=== PATIENT | male | born 1995 | race African-American/Black ===

== ENCOUNTER 2024-04-18 16:48 | Emergency (ER) | payer MEDICARE, OTHER, SELFPAY ==
[2024-04-18 16:51] VITALS: BP 123/89
--- NOTE | 2024-04-18 17:34 | ED.GENMED ---
History of Present Illness
<Dominique Powell NP - Last Filed: 04/18/24 17:41>
General
Chief Complaint: Breathing Problem
Source: patient
Exam Limitations: none
Time Seen by Provider: 04/18/24 17:10
Nursing documentation reviewed up to this point in time: agreed with
History of Present Illness
History of Present Illness:
Patient to ED with complaint of chills, bodyaches, SOB since this AM. He was discharged from [facility] on 04/07 after 20month admission for colitis, crohn's, cholecystitis, feeding issues. reports feeling well until this AM. He has Bpap
at home and states he was coninuously hypoxic this AM. To ED accompanied by mother for eval
Past History
<Dominique Powell NP - Last Filed: 04/18/24 17:41>
Past History
ED Past Medical History: Asthma (esophageal atresia), Other (Esophageal atresia, tracheoesophageal fistula, tracheal cleft, GJ tube, aspiration pneumonia) and Other (Crohn's disease, colitis.)
ED Past Surgical History: Cholecystectomy and Other (JG tube, tracheoesophageal fistula repair, laryngeal cleft repair, prior tracheostomy.)
Patient has exhibited threatening behavior?: No
PSI?: No
Social History
Tobacco: Non-smoker
Alcohol: None
Drug: None
Personal: Single
Living: with family
Employment: Not employed
Family History
Family History: Other (Noncontributory)
Course
<Dominique Powell NP - Last Filed: 04/18/24 17:41>
Orders/Labs/Results
Orders:
Orders
04/18/24 17:13
CR Chest - 2 Views Urgent
Comment:
Reason For Exam: fever, sob
04/18/24 17:44
COVID-19 Antigen Urgent
Source: Nasal Swab
Complete Blood Count/With Diff Urgent
Comprehensive Metabolic Panel Urgent
Influenza A+B Rapid Molecular Urgent
DAVID Source: Nasal Swab
Specimen Description:
Abnormal Lab Results
04/18/24
17:44
MCHC 32.3 L g/dL
(33.0-37.0)
MPV 12.4 H fL
(7.4-10.4)
Absolute Neuts (auto) 7.5 H 10^3/uL
(1.4-6.5)
Neutrophils % 78.5 H %
(42.2-75.2)
Lymphocytes % 13.3 L %
(20.5-51.1)
Carbon Dioxide 31 H mmol/L
(22-30)
Creatinine 0.6 L mg/dL
(0.7-1.3)
AST 111 H U/L
(17-59)
ALT 123 H U/L
(0-50)
Alkaline Phosphatase 486 H U/L
(38-126)
Total Protein 8.3 H g/dl
(6.3-8.2)
04/18/24 17:44
04/18/24 17:44
Vital Signs
Initial and Last Documented VS:
Initial Vital Signs
Temp Pulse Resp BP Pulse Ox
98.9 F 118 18 123/89 99
04/18/24 16:51 04/18/24 16:51 04/18/24 16:51 04/18/24 16:51 04/18/24 16:51
Last Documented Vital Signs
Temp Pulse Resp BP Pulse Ox
98.9 F 118 18 113/72 98
04/18/24 16:51 04/18/24 16:51 04/18/24 16:51 04/18/24 19:00 04/18/24 19:00
Crystallt;Anuel Lovett, DO - Last Filed: 04/18/24 19:21>
Orders/Labs/Results
Orders:
Orders
04/18/24 17:13
CR Chest - 2 Views Urgent
Comment:
Reason For Exam: fever, sob
04/18/24 17:44
COVID-19 Antigen Urgent
Source: Nasal Swab
Complete Blood Count/With Diff Urgent
Comprehensive Metabolic Panel Urgent
Influenza A+B Rapid Molecular Urgent
DAVID Source: Nasal Swab
Specimen Description:
Abnormal Lab Results
04/18/24
17:44
MCHC 32.3 L g/dL
(33.0-37.0)
MPV 12.4 H fL
(7.4-10.4)
Absolute Neuts (auto) 7.5 H 10^3/uL
(1.4-6.5)
Neutrophils % 78.5 H %
(42.2-75.2)
Lymphocytes % 13.3 L %
(20.5-51.1)
Carbon Dioxide 31 H mmol/L
(22-30)
Creatinine 0.6 L mg/dL
(0.7-1.3)
AST 111 H U/L
(17-59)
ALT 123 H U/L
(0-50)
Alkaline Phosphatase 486 H U/L
(38-126)
Total Protein 8.3 H g/dl
(6.3-8.2)
04/18/24 17:44
04/18/24 17:44
Vital Signs
Initial and Last Documented VS:
Initial Vital Signs
Temp Pulse Resp BP Pulse Ox
98.9 F 118 18 123/89 99
04/18/24 16:51 04/18/24 16:51 04/18/24 16:51 04/18/24 16:51 04/18/24 16:51
Last Documented Vital Signs
Temp Pulse Resp BP Pulse Ox
98.9 F 118 18 113/72 98
04/18/24 16:51 04/18/24 16:51 04/18/24 16:51 04/18/24 19:00 04/18/24 19:00
ED Attending Note
<Dominique Powell FULL STACK SOFTWARE ENGINEER - Last Filed: 04/18/24 17:41>
-
Portions of this chart may have been created with voice recognition software.� Occasional wrong word or��sound alike� substitutions may have occurred due to the inherent limitations of voice recognition software.
<Anuel Lovett DO - Last Filed: 04/18/24 19:21>
ED Attending Note
Patient seen and examined by attending physician: Yes
I performed the substantive portion of visit, reviewed & personally made and approve the management plan that is documented in note by myself or VITA.: Yes
ED Attending Note:
Seen with FULL STACK SOFTWARE ENGINEER examined independently 28-year-old male very complex past medical history seen [facility] Kimberly presbyhas a device to keep his secretions out of his chest to keep her from aspirating, presents with URI symptoms, work
appears negative he is oxygen well on room air does have some rhonchi will have him use his nebulizer he has a follow-up scheduled with pulmonary next week
Discharge Plan
Departure
Prescriptions:
No Action
cetirizine [Children's Cetirizine] 5 MG/5 ML solution
10 mg feeding tube DAILY
VSL#3 1 EACH capsule
2 cap feeding tube DAILY
Saline Neb
1 unit inhalation BID
balsalazide [Colazal] 750 MG capsule
3 capsules feeding tube TID
Erythromycin
5 ml feeding tube TID
Patient Comments:
states concentration is 400mg per 5 ml
Qvar
1 puff inhalation PRN PRN (Reason: only when 'very sick')
Pepcid:
2.5 ml feeding tube BID
Rifaximin
1 tab feeding tube TID
Senna Syrup
5 ml feeding tube DAILY
albuterol sulfate 2.5 MG/3 ML solution for nebulization
2.5 mg inhalation R Q4HPRN PRN (Reason: sob/wheezing)
sucralfate 1 GRAM tablet
1 g feeding tube Q6H
baclofen 20 MG tablet
20 mg feeding tube BIDPRN PRN (Reason: muscle spasms)
cyanocobalamin (vitamin B-12) 1,000 MCG/ML solution
1,000 mcg SC MONTHLY
hyoscyamine sulfate [Levsin/SL] 0.125 MG tablet, sublingual
0.125 mg sublingual BIDPRN PRN (Reason: increased secreations)
pyridostigmine bromide [Mestinon] 60 MG/5 ML syrup
60 mg feeding tube Q8H
albuterol sulfate 1 PUFF HFA aerosol inhaler
2 puff inhalation R BID
hydromorphone 4 MG tablet
12 mg feeding tube HS
Patient Comments:
06/29/2021: last filled 06/17/2021, 105 tabs for 15 days from [facility]
hydromorphone 4 MG tablet
8 mg feeding tube BID@0800,1700
Patient Comments:
06/29/2021: last filled 06/17/2021, 105 tabs for 15 days from [facility]
cyclobenzaprine 5 MG tablet
5 - 10 mg feeding tube TIDPRN PRN (Reason: muscle spasms)
lansoprazole 30 MG tablet,disintegrat, delay rel
30 mg PO BID
alprazolam 0.5 MG tablet,disintegrating
1.5 mg PO TID
Patient Comments:
06/29/2021: last filled 06/07/2021, 90 tabs for 30 days from [facility][id number]
Advair HFA 1 PUFF HFA aerosol inhaler
2 puff inhalation R BID
gabapentin 250 MG/5 ML solution
750 mg feeding tube BID
Motegrity 2 MG tablet
2 mg feeding tube DAILY
Vitamin D3
4 ml feeding tube DAILY
Referrals:
Rudy Snyder MD [Family Provider] -
Interventions
Interventions:
*Risk Screen - Suicide Last Done: 04/18/24 16:51
*General Assessment Last Done: 04/18/24 16:51
*ED COVID-19 Vaccine History Last Done: 04/18/24 16:51
ED- Cardiac Assessment Last Done: 04/18/24 18:24
ED- Pulmonary Assessment Last Done: 04/18/24 18:24
Discharge Date and Time
Print Language: MOLDOVAN
[2024-04-18 17:54] LABS: % Basophils 0.2 % (0-2); % Eosinophils 1.9 % (0-6); % Immature Granulocytes 0.2 % (0-0.5); % Lymphocytes 13.3 % (20.5-51.1); % Monocytes 5.9 % (1.7-9.3); % Neutrophils 78.5 % (42.2-75.2); Absolute Eosinophils 0.2 10^3/uL (0-0.7); Absolute Lymphocytes 1.3 10^3/uL (1.2-3.4); Absolute Monocytes 0.6 10^3/uL (0.1-0.6); Absolute Neutrophils 7.5 10^3/uL (1.4-6.5); Hematocrit 44.3 % (39.0-52.0); Hemoglobin 14.3 g/dL (13.0-18.0); Mean Corp Hgb Conc. 32.3 g/dL (33.0-37.0); Mean Corpuscular Hgb 30.2 pg (27.0-31.0); Mean Corpuscular Volume 93.5 fL (80.0-94.0); Mean Platelet Volume 12.4 fL (7.4-10.4); Nucleated Red Blood Cells % 0 % (-); Platelet Count 173 10^3/uL (130-400); Red Blood Cell Count 4.74 10^6/uL (4.70-6.10); Red Cell Dist. Width 12.5 % (11.5-14.5); White Blood Cell Count 9.6 10^3/uL (4.8-10.8)
[2024-04-18 18:19] LABS: COVID-19 Antigen Negative (Negative)
[2024-04-18 18:22] VITALS: BP 130/81
[2024-04-18 18:32] LABS: ALT (SGPT) 123 U/L (0-50); AST (SGOT) 111 U/L (17-59); Albumin 4.6 g/dl (3.5-5.0); Alkaline Phosphatase 486 U/L (38-126); Blood Urea Nitrogen 11 mg/dl (9-20); Calcium 9.8 mg/dl (8.4-10.2); Carbon Dioxide 31 mmol/L (22-30); Chloride 99 mmol/L (98-107); Glucose 84 mg/dl (70-99); Potassium 4.4 mmol/L (3.5-5.1); Sodium 138 mmol/L (135-145); Total Bilirubin 1.2 mg/dl (0.2-1.3); Total Protein 8.3 g/dl (6.3-8.2); eGFR > 60.00
[2024-04-18 19:00] VITALS: BP 113/72
[2024-04-18 20:00] VITALS: BP 127/85
== END 2024-04-18 20:33 | disposition home or self-care (01) ==
LOC: EMR 16:48
PROVIDERS: Nurse Practitioner; EMERGENCY PHYSICIAN Emergency Medicine; FAMILY PHYSICIAN Family Medicine
DX: J45.909 Unspecified asthma, uncomplicated (principal); K50.90 Crohn's disease, unspecified, without complications; Z90.49 Acquired absence of other specified parts of digestive tract; Z93.1 Gastrostomy status
CPT/HCPCS: 99284; 71046; 80053; 85025; 87502; 87811

== ENCOUNTER 2024-06-11 21:00 | Emergency (ER) | payer MEDICARE, OTHER, SELFPAY ==
[2024-06-11 21:04] VITALS: BP 111/77
--- NOTE | 2024-06-11 22:57 | ED.GENMED ---
History of Present Illness
General
Chief Complaint: Urinary Symptoms
Source: patient and family
Exam Limitations: none
Time Seen by Provider: 06/11/24 22:37
Nursing documentation reviewed up to this point in time: agreed with
History of Present Illness
History of Present Illness:
Pleasant 28-year-old male that has a complex medical history. He feels that he is dehydrated he was sent in by his mobile therapist nurse practitioner for IV hydration. Patient spent approximately 2 years in multiple hospitals, including [facility],
[facility] and most recently being discharged from [facility] on April 07. Patient has colitis, Crohn's, cholecystitis. He has a G-tube and a J-tube. His G-tube is for decompression, and measures output. His J-tube is for
enteral feeding. Patient is on BiPAP. He also has a fistula in his right chest but it is not being used.
Vital signs are stable. Patient not hypoxic
Nursing note reviewed. I agree with nursing documentation up to this point in time.
Home Meds and allergies reviewed.
NUMBER AND COMPLEXITY OF PROBLEMS ADDRESSED AT THE ENCOUNTER
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
dehydration
� Acute Exacerbation and/or Progression of Chronic Illness: GERD and dehydration
� Differential Diagnosis includes: Dehydration
AMOUNT AND/OR COMPLEXITY OF DATA TO BE REVIEWED AND ANALYZED
I performed an independent evaluation of the following and my interpretation is:
EKG:
Pulse Ox: Not Hypoxic
Propeller Engineer: Sinus Rhythm
CT:
X-rays:
Ultrasound:
Laboratory Studies:
Other:
Review of other/old records:
Clinical information was obtained by an independent historian:
Prescriptions/Medications Considered but not given:
Further testing considered but not performed:
RISK OF COMPLICATIONS AND/OR MORBIDITY OR MORTALITY OF PATIENT MANAGEMENT
Social determinants of health affecting care: Good Social Support family at the bedside. Patient is very well versed in his care
Discussion with other providers:
Escalation of care including admission/observation vs risk of discharge considered: After being observed in the emergency department, patient is
CRITICAL CARE NOTE:
Total Time (exclusive of procedures):
Update:
Past History
Past History
ED Past Medical History: Asthma (esophageal atresia), Other (Esophageal atresia, tracheoesophageal fistula, tracheal cleft, GJ tube, aspiration pneumonia) and Other (Crohn's disease, colitis.)
ED Past Surgical History: Cholecystectomy and Other (JG tube, tracheoesophageal fistula repair, laryngeal cleft repair, prior tracheostomy.)
Patient has exhibited threatening behavior?: No
PSI?: No
Social History
Tobacco: Non-smoker
Alcohol: None
Drug: None
Personal: Single
Living: with family
Employment: Not employed
Family History
Family History: Other (Noncontributory)
Review of Systems
Review of Systems
Allergies reviewed?: Yes
Other source history: family
All Other Systems: ROS reviewed and negative except as documented in HPI and ROS
Constitutional: Reports no symptoms
EENT: Reports no symptoms
Respiratory: Reports no symptoms
Cardiac: Reports no symptoms
ABD/GI: Reports no symptoms
: Reports dark urine and other (Decreased urine output)
Musculoskeletal: Reports no symptoms
Skin: Reports no symptoms
Neurological: Reports no symptoms
Endocrine: Reports no symptoms
Hematologic/Lymphatic: Reports no symptoms
Psychiatric: Reports anxiety
Phy Exam
General Physical Exam
General Presentation: well appearing and no apparent distress
General Skin: warm and dry
General Habitus: normal
General Mental: alert
General Hydration: appears well hydrated
ENT Exam
ENT Exam: EOMI, pharynx normal, neck supple and normocephalic
Eye Exam
Eye Exam: PERRL, cornea clear and conjunctiva normal
Cardiovascular Exam
Cardiovascular Exam: regular rate/rhythm, no edema, no murmur and normal peripheral pulses
Pulmonary Exam
Pulmonary Exam: lungs clear, no respiratory distress, no rales, no crackles, no rhonchi, no stridor, no wheezing and no cough
Gastrointestinal Exam
Gastrointestinal Exam: normal bowel sounds, non tender, soft, no organomegaly, no pulsatile mass and non distended
External Findings: gastrostomy tube
Neurological Exam
Neurological Exam: alert, oriented x3, no motor deficits and speech normal
Musculoskeletal Exam
Musculoskeletal Exam: full ROM and no edema
Skin Exam
Skin Exam: normal color, warm/dry, no rash and no petechia
Psychiatric Exam
Psychiatric Exam: normal mood/affect
Course
Orders/Labs/Results
Orders:
Orders
06/11/24 22:58
0.9% Sodium Chloride 1000 ml [Nss] 1,000 ml IV BOLUS
06/11/24 23:40
Complete Blood Count/With Diff Urgent
Comprehensive Metabolic Panel Urgent
Lipase Urgent
Abnormal Lab Results
06/11/24
23:40
RBC 4.63 L 10^6/uL
(4.70-6.10)
MPV 12.8 H fL
(7.4-10.4)
Carbon Dioxide 31 H mmol/L
(22-30)
Creatinine 0.5 L mg/dL
(0.7-1.3)
AST 117 H U/L
(17-59)
ALT 90 H U/L
(0-50)
Alkaline Phosphatase 326 H U/L
(38-126)
06/11/24 23:40
06/11/24 23:40
Vital Signs
Initial and Last Documented VS:
Initial Vital Signs
Temp Pulse Resp BP Pulse Ox
98.3 F 104 18 111/77 97
06/11/24 21:04 06/11/24 21:04 06/11/24 21:04 06/11/24 21:04 06/11/24 21:04
Last Documented Vital Signs
Temp Pulse Resp BP Pulse Ox
98.3 F 110 24 138/94 98
06/11/24 21:04 06/12/24 01:05 06/12/24 01:05 06/12/24 01:05 06/12/24 03:57
*Critical Care Note
Total Time (30-74mins, 75-104mins- exclusive of procedures): Not Applicable
Update Note
Update Note:
Labs compared to previous, they are remarkably similar.
Patient resting comfortably. Receiving fluids. Family went home to get more TPN
Patient had 600 cc of urine. He is feeling better. He wishes to be discharged.
ED Attending Note
-
Portions of this chart may have been created with voice recognition software.� Occasional wrong word or��sound alike� substitutions may have occurred due to the inherent limitations of voice recognition software.
Discharge Plan
Departure
Patient Disposition: Home (Routine Discharge)
Date of Disposition: 06/12/24
Time of Disposition: 03:21
Patient with high blood pressure during this ER visit?: Yes
Condition: Good
Discharge Problem:
Acute dehydration
Instructions: Dehydration in adults - ED discharge instructions, BLOOD PRESSURE
Prescriptions:
No Action
cetirizine [Children's Cetirizine] 5 MG/5 ML solution
10 mg feeding tube DAILY
VSL#3 1 EACH capsule
2 cap feeding tube DAILY
Saline Neb
1 unit inhalation BID
balsalazide [Colazal] 750 MG capsule
3 capsules feeding tube TID
Erythromycin
5 ml feeding tube TID
Patient Comments:
states concentration is 400mg per 5 ml
Qvar
1 puff inhalation PRN PRN (Reason: only when 'very sick')
Pepcid:
2.5 ml feeding tube BID
Rifaximin
1 tab feeding tube TID
Senna Syrup
5 ml feeding tube DAILY
albuterol sulfate 2.5 MG/3 ML solution for nebulization
2.5 mg inhalation R Q4HPRN PRN (Reason: sob/wheezing)
sucralfate 1 GRAM tablet
1 g feeding tube Q6H
baclofen 20 MG tablet
20 mg feeding tube BIDPRN PRN (Reason: muscle spasms)
cyanocobalamin (vitamin B-12) 1,000 MCG/ML solution
1,000 mcg SC MONTHLY
hyoscyamine sulfate [Levsin/SL] 0.125 MG tablet, sublingual
0.125 mg sublingual BIDPRN PRN (Reason: increased secreations)
pyridostigmine bromide [Mestinon] 60 MG/5 ML syrup
60 mg feeding tube Q8H
albuterol sulfate 1 PUFF HFA aerosol inhaler
2 puff inhalation R BID
hydromorphone 4 MG tablet
12 mg feeding tube HS
Patient Comments:
06/29/2021: last filled 06/17/2021, 105 tabs for 15 days from [facility]
hydromorphone 4 MG tablet
8 mg feeding tube BID@0800,1700
Patient Comments:
06/29/2021: last filled 06/17/2021, 105 tabs for 15 days from [facility]
cyclobenzaprine 5 MG tablet
5 - 10 mg feeding tube TIDPRN PRN (Reason: muscle spasms)
lansoprazole 30 MG tablet,disintegrat, delay rel
30 mg PO BID
alprazolam 0.5 MG tablet,disintegrating
1.5 mg PO TID
Patient Comments:
06/29/2021: last filled 06/07/2021, 90 tabs for 30 days from [facility]#[id number]
Advair HFA 1 PUFF HFA aerosol inhaler
2 puff inhalation R BID
gabapentin 250 MG/5 ML solution
750 mg feeding tube BID
Motegrity 2 MG tablet
2 mg feeding tube DAILY
Vitamin D3
4 ml feeding tube DAILY
Referrals:
Rudy Snyder MD [Family Provider] -
Activity Restrictions/Additional Instructions:
It was a pleasure meeting you and taking part in your care. We hope for your continued healing and wellness.
Please read discharge instructions in their entirety. However, they are for general education and may not describe your exact diagnosis at discharge. Information on your ER visit and medical conditions were discussed with you along with appropriate
follow up information...
If indicated, please take your medications as instructed and indicated on discharge paperwork.
Please schedule a follow up appointment as directed. Call to schedule an appointment
Please return to the emergency department with ANY change in, persisting, or worsening of symptoms. If any of your symptoms do not improve, or persist, or become more severe within 6-12 hours, please return to the emergency department for further
care.
Please return to the emergency department if you develop a headache, neck pain/stiffness, fever greater than 100.4F, chest pain, shortness of breath, persistent nausea, vomiting, slurred speech, difficulty walking, numbness/tingling, weakness, signs
of infection or any other symptoms that are worrisome to you.
If you have any questions or concerns please do not hesitate to call the Hospital at or E-mail me directly at [email or web address]
Interventions
Interventions:
*Risk Screen - Suicide Last Done: 06/11/24 21:04
*General Assessment Last Done: 06/11/24 21:04
*Neglect/Abuse Screening Last Done: 06/11/24 21:04
*ED- Fall Risk Assessment Last Done: 06/12/24 03:57
*ED COVID-19 Vaccine History Last Done: 06/11/24 21:04
*Nursing Disposition Last Done: 06/12/24 03:57
ED-Male Genitourinary Assessment Last Done: 06/12/24 00:00
Discharge Date and Time
Discharge Date/Time: 06/12/24 03:58
Print Language: LUXEMBOURGISH
[2024-06-11] MEDS: NSS 1000 IV (23:32)
[2024-06-11 23:44] VITALS: BMI 27.7
[2024-06-11 23:51] LABS: % Basophils 0.3 % (0-2); % Eosinophils 1.6 % (0-6); % Immature Granulocytes 0.2 % (0-0.5); % Lymphocytes 28.8 % (20.5-51.1); % Monocytes 6.4 % (1.7-9.3); % Neutrophils 62.7 % (42.2-75.2); Absolute Eosinophils 0.1 10^3/uL (0-0.7); Absolute Lymphocytes 1.8 10^3/uL (1.2-3.4); Absolute Monocytes 0.4 10^3/uL (0.1-0.6); Absolute Neutrophils 3.9 10^3/uL (1.4-6.5); Hematocrit 41.7 % (39.0-52.0); Hemoglobin 13.8 g/dL (13.0-18.0); Mean Corp Hgb Conc. 33.1 g/dL (33.0-37.0); Mean Corpuscular Hgb 29.8 pg (27.0-31.0); Mean Corpuscular Volume 90.1 fL (80.0-94.0); Mean Platelet Volume 12.8 fL (7.4-10.4); Nucleated Red Blood Cells % 0 % (-); Platelet Count 156 10^3/uL (130-400); Red Blood Cell Count 4.63 10^6/uL (4.70-6.10); Red Cell Dist. Width 11.9 % (11.5-14.5); White Blood Cell Count 6.2 10^3/uL (4.8-10.8)
[2024-06-12 00:02] LABS: ALT (SGPT) 90 U/L (0-50); AST (SGOT) 117 U/L (17-59); Albumin 4.4 g/dl (3.5-5.0); Alkaline Phosphatase 326 U/L (38-126); Blood Urea Nitrogen 10 mg/dl (9-20); Calcium 9.9 mg/dl (8.4-10.2); Carbon Dioxide 31 mmol/L (22-30); Chloride 99 mmol/L (98-107); Estimated Creatinine Clearance > 125 ml/min; Glucose 96 mg/dl (70-99); Lipase 31 U/L (23-300); Sodium 138 mmol/L (135-145); Total Bilirubin 0.8 mg/dl (0.2-1.3); Total Protein 7.7 g/dl (6.3-8.2); eGFR > 60.00
[2024-06-12 01:05] VITALS: BP 138/94
== END 2024-06-12 03:58 | disposition home or self-care (01) ==
LOC: EMR 21:00
PROVIDERS: EMERGENCY PHYSICIAN Student in an Organized Health Care Education/Training Program; FAMILY PHYSICIAN Family Medicine
DX: E86.0 Dehydration (principal); Z93.1 Gastrostomy status
CPT/HCPCS: 99284; 96360; 96361 ×3; 80053; 83690; 85025

== ENCOUNTER 2024-06-17 15:51 | Emergency (ER) | payer MEDICARE, OTHER, SELFPAY ==
[2024-06-17 15:54] VITALS: BP 140/78
--- NOTE | 2024-06-17 17:47 | ED.GENMED ---
History of Present Illness
General
Chief Complaint: Dehydration Symptoms
Time Seen by Provider: 06/17/24 17:14
History of Present Illness
History of Present Illness:
28-year-old male with multiple medical comorbidities presents to the emergency department for evaluation of poor urine output and general fatigue. He is tube feed dependent and has severe esophageal reflux due to esophageal atresia status post spit
fistula creation. He informs me that due to medication supply issues he has not had his routine PPIs and thus his fistula has increased secretions and due to fluid losses he becomes increasingly hydrated. Was in this ER 5 days ago for the same
thing. Denies any pain at this time
Past History
Past History
ED Past Medical History: Asthma (esophageal atresia), Other (Esophageal atresia, tracheoesophageal fistula, tracheal cleft, GJ tube, aspiration pneumonia) and Other (Crohn's disease, colitis.)
ED Past Surgical History: Cholecystectomy and Other (JG tube, tracheoesophageal fistula repair, laryngeal cleft repair, prior tracheostomy.)
Patient has exhibited threatening behavior?: No
PSI?: No
Social History
Tobacco: Non-smoker
Alcohol: None
Drug: None
Personal: Single
Living: with family
Employment: Not employed
Family History
Family History: Other (Noncontributory)
Review of Systems
Review of Systems
Allergies reviewed?: Yes
All Other Systems: ROS reviewed and negative except as documented in HPI and ROS
Phy Exam
Physical Exam
Physical Exam:
GEN: Well appearing, NAD, WDWN
HEENT: Oral mucosa moist, no scleral icterus
Cardiac: Regular rate
Lung: No respiratory distress, no tachypnea
MSK: No gross deformity or injuries
Skin: Good color, no pallor or jaundice, no rashes. Ostomy in the right upper chest wall
Neuro: AO x3, moves all extremities freely
Psych: Calm, cooperative
Course
Orders/Labs/Results
Orders:
Orders
06/17/24 17:42
Lactated Ringers [Lr] 1,000 ml IV BOLUS
06/17/24 17:52
Basic Metabolic Panel Urgent
06/17/24 19:23
Lactated Ringers [Lr] 1,000 ml IV BOLUS
06/17/24 20:04
Albuterol Nebs [Ventolin Nebules] 2.5 mg INH R NOW STA
Ipratropium Nebs [Atrovent Nebules] 1 mg INH R NOW STA
Abnormal Lab Results
06/17/24
17:52
Creatinine 0.6 L mg/dL
(0.7-1.3)
06/17/24 17:52
Vital Signs
Initial and Last Documented VS:
Initial Vital Signs
Temp Pulse Resp BP Pulse Ox
98.2 F 98 16 140/78 97
06/17/24 15:54 06/17/24 15:54 06/17/24 15:54 06/17/24 15:54 06/17/24 15:54
Last Documented Vital Signs
Temp Pulse Resp BP Pulse Ox
98.2 F 100 15 119/78 98
06/17/24 15:54 06/17/24 21:00 06/17/24 21:00 06/17/24 21:00 06/17/24 21:00
MDM/Problems Addressed
MDM/Problems Addressed:
Given IV fluids, labs reassuring, will have PICC line placed as an outpatient upcoming next week
*Critical Care Note
Total Time (30-74mins, 75-104mins- exclusive of procedures): Not Applicable
ED Attending Note
-
Portions of this chart may have been created with voice recognition software.� Occasional wrong word or��sound alike� substitutions may have occurred due to the inherent limitations of voice recognition software.
Discharge Plan
Departure
Patient Disposition: Home (Routine Discharge)
Date of Disposition: 06/17/24
Time of Disposition: 20:26
Patient with high blood pressure during this ER visit?: No
Discharge Problem:
Acute dehydration
Instructions: Dehydration, Adult (DC)
Prescriptions:
No Action
cetirizine [Children's Cetirizine] 5 MG/5 ML solution
10 mg feeding tube DAILY
VSL#3 1 EACH capsule
2 cap feeding tube DAILY
Saline Neb
1 unit inhalation BID
balsalazide [Colazal] 750 MG capsule
3 capsules feeding tube TID
Erythromycin
5 ml feeding tube TID
Patient Comments:
states concentration is 400mg per 5 ml
Qvar
1 puff inhalation PRN PRN (Reason: only when 'very sick')
Pepcid:
2.5 ml feeding tube BID
Rifaximin
1 tab feeding tube TID
Senna Syrup
5 ml feeding tube DAILY
albuterol sulfate 2.5 MG/3 ML solution for nebulization
2.5 mg inhalation R Q4HPRN PRN (Reason: sob/wheezing)
sucralfate 1 GRAM tablet
1 g feeding tube Q6H
baclofen 20 MG tablet
20 mg feeding tube BIDPRN PRN (Reason: muscle spasms)
cyanocobalamin (vitamin B-12) 1,000 MCG/ML solution
1,000 mcg SC MONTHLY
hyoscyamine sulfate [Levsin/SL] 0.125 MG tablet, sublingual
0.125 mg sublingual BIDPRN PRN (Reason: increased secreations)
pyridostigmine bromide [Mestinon] 60 MG/5 ML syrup
60 mg feeding tube Q8H
albuterol sulfate 1 PUFF HFA aerosol inhaler
2 puff inhalation R BID
hydromorphone 4 MG tablet
12 mg feeding tube HS
Patient Comments:
06/29/2021: last filled 06/17/2021, 105 tabs for 15 days from [facility]
hydromorphone 4 MG tablet
8 mg feeding tube BID@0800,1700
Patient Comments:
06/29/2021: last filled 06/17/2021, 105 tabs for 15 days from [facility]
cyclobenzaprine 5 MG tablet
5 - 10 mg feeding tube TIDPRN PRN (Reason: muscle spasms)
lansoprazole 30 MG tablet,disintegrat, delay rel
30 mg PO BID
alprazolam 0.5 MG tablet,disintegrating
1.5 mg PO TID
Patient Comments:
06/29/2021: last filled 06/07/2021, 90 tabs for 30 days from [facility]#[id number]
Advair HFA 1 PUFF HFA aerosol inhaler
2 puff inhalation R BID
gabapentin 250 MG/5 ML solution
750 mg feeding tube BID
Motegrity 2 MG tablet
2 mg feeding tube DAILY
Vitamin D3
4 ml feeding tube DAILY
Referrals:
Rudy Snyder MD [Family Provider] -
Interventions
Interventions:
*Nursing Disposition Last Done: 06/17/24 21:01
ED- Cardiac Assessment Last Done: 06/17/24 19:58
ED- Neurological Assessment Last Done: 06/17/24 19:58
ED- Pulmonary Assessment Last Done: 06/17/24 19:58
Discharge Date and Time
Discharge Date/Time: 06/17/24 21:03
Print Language: NIGERIEN
[2024-06-17] MEDS: LR 1000 IV ×2 (17:49→19:28)
[2024-06-17 18:19] LABS: Blood Urea Nitrogen 12 mg/dl (9-20); Calcium 9.5 mg/dl (8.4-10.2); Carbon Dioxide 26 mmol/L (22-30); Chloride 103 mmol/L (98-107); Glucose 90 mg/dl (70-99); Potassium 4.5 mmol/L (3.5-5.1); Sodium 141 mmol/L (135-145); eGFR > 60.00
[2024-06-17 18:44] VITALS: BP 117/75
[2024-06-17] MEDS: ATROVENT NEBULES 1 MG INH (20:10)
[2024-06-17] MEDS: VENTOLIN NEBULES 2.5 MG INH (20:10)
[2024-06-17 21:00] VITALS: BP 119/78
== END 2024-06-17 21:03 | disposition home or self-care (01) ==
LOC: EMR 15:51
PROVIDERS: Physician Assistant; EMERGENCY PHYSICIAN Emergency Medicine; FAMILY PHYSICIAN Family Medicine
DX: E86.0 Dehydration (principal); J45.909 Unspecified asthma, uncomplicated; Q39.0 Atresia of esophagus without fistula; K50.90 Crohn's disease, unspecified, without complications; K21.9 Gastro-esophageal reflux disease without esophagitis; Z90.49 Acquired absence of other specified parts of digestive tract
CPT/HCPCS: 99284; 94640; 96360; 80048

== ENCOUNTER 2024-06-24 17:02 | Emergency (ER) | payer MEDICARE, OTHER, SELFPAY ==
[2024-06-24 17:06] VITALS: BP 120/88
[2024-06-24 17:40] LABS: % Basophils 0.4 % (0-2); % Immature Granulocytes 0.2 % (0-0.5); % Lymphocytes 29.8 % (20.5-51.1); % Monocytes 8.1 % (1.7-9.3); % Neutrophils 59.5 % (42.2-75.2); Absolute Eosinophils 0.1 10^3/uL (0-0.7); Absolute Lymphocytes 1.7 10^3/uL (1.2-3.4); Absolute Monocytes 0.5 10^3/uL (0.1-0.6); Absolute Neutrophils 3.3 10^3/uL (1.4-6.5); Hematocrit 40.2 % (39.0-52.0); Hemoglobin 13.2 g/dL (13.0-18.0); Mean Corp Hgb Conc. 32.8 g/dL (33.0-37.0); Mean Corpuscular Hgb 29.3 pg (27.0-31.0); Mean Corpuscular Volume 89.3 fL (80.0-94.0); Mean Platelet Volume 12.4 fL (7.4-10.4); Nucleated Red Blood Cells % 0 % (-); Platelet Count 155 10^3/uL (130-400); Red Cell Dist. Width 12.3 % (11.5-14.5); White Blood Cell Count 5.6 10^3/uL (4.8-10.8)
[2024-06-24 17:51] LABS: ALT (SGPT) 63 U/L (0-50); AST (SGOT) 64 U/L (17-59); Albumin 4.4 g/dl (3.5-5.0); Alkaline Phosphatase 363 U/L (38-126); Blood Urea Nitrogen 9 mg/dl (9-20); Calcium 9.2 mg/dl (8.4-10.2); Carbon Dioxide 26 mmol/L (22-30); Chloride 102 mmol/L (98-107); Glucose 94 mg/dl (70-99); Potassium 4.3 mmol/L (3.5-5.1); Sodium 139 mmol/L (135-145); Total Bilirubin 0.8 mg/dl (0.2-1.3); Total Protein 7.6 g/dl (6.3-8.2); eGFR > 60.00
--- NOTE | 2024-06-24 20:18 | ED.GENMED ---
History of Present Illness
General
Chief Complaint: Weakness
Time Seen by Provider: 06/24/24 20:11
History of Present Illness
History of Present Illness:
TIME OF INITIAL ENCOUNTER: 8:30 PM
HPI: The patient presents due to weakness. He was seen here 06/17/2024 with poor urine output and generalized fatigue. 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 He reportedly is supposed to have a PICC placed this
coming Saturday. Today he is concerned of decreased urine output, lightheadedness and generalized fatigue again. He feels that he needs more IV fluids.
EXAM:
GENERAL: Appears chronically ill
HEENT: Spit fistula bag noted in the right upper chest wall
CARDIOVASCULAR: No murmurs, borderline tachycardic heart rate, regular rhythm, No chest wall tenderness
PULMONARY: No respiratory distress, breath sounds coarse diffusely
ABDOMEN: Soft with no peritoneal signs, no tenderness, G and J-tube's noted
NEUROLOGIC: Excellent strength all extremities, no coordination deficits
PSYCHIATRIC: Appropriate mental status, normal insight and judgement
EXTREMITIES: Nontender, no edema, moves all extremities equally
SKIN: No rash, no lesions
NUMBER AND COMPLEXITY OF PROBLEMS ADDRESSED AT THE ENCOUNTER
� Chronic conditions affecting care: Tracheoesophageal fistula, has G and J-tube's
� Acute Exacerbation and/or Progression of Chronic Illness: This is an acute but recurring problem
� Differential Diagnosis includes: Dehydration, SUZANNE, hypovolemia, electrolyte abnormality
AMOUNT AND/OR COMPLEXITY OF DATA TO BE REVIEWED AND ANALYZED
� I performed an independent evaluation of and my interpretation is:
EKG:
CT:
X-rays:
Laboratory Studies: White count and hemoglobin are normal, chemistries unremarkable including a creatinine 0.5, transaminases are slightly lower than they were last week now in the 60s, alk phos 363 which has been elevated since
at least April
Other:
� Review of other/old records: The patient was seen here 06/17/24 as summarized above
� Clinical information was obtained by an independent historian: None needed speak to mother
� Prescriptions/Medications Considered but not given:
� Further testing considered but not performed:
RISK OF COMPLICATIONS AND/OR MORBIDITY OR MORTALITY OF PATIENT MANAGEMENT
� Social determinants of health affecting care: Lives at home
� Discussion with other providers:
� Escalation of care including admission/observation vs risk of discharge considered: I have ordered 2 L of IV fluids as patient feels dehydrated and does have complex GI history.
ANY OTHER UPDATES:
11:25 PM: I reassessed patient. He is just about on the first liter of fluid. He appears well-hydrated.
Throughout his stay in the emergency department, the patient did voice concern of the appearance of the fluid from the G port. He does have somewhat of a coffee-ground appearance in the tubing from the G-tube. However his blood pressure is normal,
hemoglobin is unchanged and BUN is normal. We do not have the Gastroccult cards and I did check with the Hemoccult card which was borderline positive. He apparently could not tolerate the PPI into the G-tube in the past and has been in contact
with [facility] regarding this issue in the past as well. He is to follow-up with [facility].
Past History
Past History
ED Past Medical History: Asthma (esophageal atresia), Other (Esophageal atresia, tracheoesophageal fistula, tracheal cleft, GJ tube, aspiration pneumonia) and Other (Crohn's disease, colitis.)
ED Past Surgical History: Cholecystectomy and Other (JG tube, tracheoesophageal fistula repair, laryngeal cleft repair, prior tracheostomy.)
Patient has exhibited threatening behavior?: No
PSI?: No
Social History
Tobacco: Non-smoker
Alcohol: None
Drug: None
Personal: Single
Living: with family
Employment: Not employed
Family History
Family History: Other (Noncontributory)
Phy Exam
Physical Exam
Physical Exam:
See HPI
Course
Orders/Labs/Results
Orders:
Orders
06/24/24 17:08
ECG [Electrocardiogram (*1)] Urgent
Reason for Study: Vertigo / Dizzy
06/24/24 17:09
EKG- Treatment ONCE
06/24/24 17:30
Complete Blood Count/With Diff Urgent
Comprehensive Metabolic Panel Urgent
06/24/24 20:26
0.9% Sodium Chloride 1000 ml [Nss] 1,000 ml IV BOLUS
0.9% Sodium Chloride 1000 ml [Nss] 1,000 ml IV BOLUS
Abnormal Lab Results
06/24/24
17:30
RBC 4.50 L 10^6/uL
(4.70-6.10)
MCHC 32.8 L g/dL
(33.0-37.0)
MPV 12.4 H fL
(7.4-10.4)
Creatinine 0.5 L mg/dL
(0.7-1.3)
AST 64 H U/L
(17-59)
ALT 63 H U/L
(0-50)
Alkaline Phosphatase 363 H U/L
(38-126)
06/24/24 17:30
06/24/24 17:30
Vital Signs
Initial and Last Documented VS:
Initial Vital Signs
Temp Pulse Resp BP Pulse Ox
36.7 C 104 20 120/88 95
06/24/24 17:06 06/24/24 17:06 06/24/24 17:06 06/24/24 17:06 06/24/24 17:06
Last Documented Vital Signs
Temp Pulse Resp BP Pulse Ox
36.7 C 104 20 136/89 95
06/24/24 17:06 06/24/24 17:06 06/24/24 17:06 06/25/24 00:00 06/25/24 00:45
*Critical Care Note
Total Time (30-74mins, 75-104mins- exclusive of procedures): Not Applicable
ED Attending Note
-
Portions of this chart may have been created with voice recognition software.� Occasional wrong word or��sound alike� substitutions may have occurred due to the inherent limitations of voice recognition software.
Discharge Plan
Departure
Patient Disposition: Home (Routine Discharge)
Date of Disposition: 06/24/24
Time of Disposition: 23:22
Patient with high blood pressure during this ER visit?: Yes
Discharge Problem:
Acute dehydration
Prescriptions:
No Action
cetirizine [Children's Cetirizine] 5 MG/5 ML solution
10 mg feeding tube DAILY
VSL#3 1 EACH capsule
2 cap feeding tube DAILY
Saline Neb
1 unit inhalation BID
balsalazide [Colazal] 750 MG capsule
3 capsules feeding tube TID
Erythromycin
5 ml feeding tube TID
Patient Comments:
states concentration is 400mg per 5 ml
Qvar
1 puff inhalation PRN PRN (Reason: only when 'very sick')
Pepcid:
2.5 ml feeding tube BID
Rifaximin
1 tab feeding tube TID
Senna Syrup
5 ml feeding tube DAILY
albuterol sulfate 2.5 MG/3 ML solution for nebulization
2.5 mg inhalation R Q4HPRN PRN (Reason: sob/wheezing)
sucralfate 1 GRAM tablet
1 g feeding tube Q6H
baclofen 20 MG tablet
20 mg feeding tube BIDPRN PRN (Reason: muscle spasms)
cyanocobalamin (vitamin B-12) 1,000 MCG/ML solution
1,000 mcg SC MONTHLY
hyoscyamine sulfate [Levsin/SL] 0.125 MG tablet, sublingual
0.125 mg sublingual BIDPRN PRN (Reason: increased secreations)
pyridostigmine bromide [Mestinon] 60 MG/5 ML syrup
60 mg feeding tube Q8H
albuterol sulfate 1 PUFF HFA aerosol inhaler
2 puff inhalation R BID
hydromorphone 4 MG tablet
12 mg feeding tube HS
Patient Comments:
06/29/2021: last filled 06/17/2021, 105 tabs for 15 days from [facility]
hydromorphone 4 MG tablet
8 mg feeding tube BID@0800,1700
Patient Comments:
06/29/2021: last filled 06/17/2021, 105 tabs for 15 days from [facility]
cyclobenzaprine 5 MG tablet
5 - 10 mg feeding tube TIDPRN PRN (Reason: muscle spasms)
lansoprazole 30 MG tablet,disintegrat, delay rel
30 mg PO BID
alprazolam 0.5 MG tablet,disintegrating
1.5 mg PO TID
Patient Comments:
06/29/2021: last filled 06/07/2021, 90 tabs for 30 days from [id number]
Advair HFA 1 PUFF HFA aerosol inhaler
2 puff inhalation R BID
gabapentin 250 MG/5 ML solution
750 mg feeding tube BID
Motegrity 2 MG tablet
2 mg feeding tube DAILY
Vitamin D3
4 ml feeding tube DAILY
Referrals:
Rudy Snyder MD [Family Provider] -
Activity Restrictions/Additional Instructions:
Basic blood work is unremarkable and shows no clear sign of dehydration. However we did give IV fluids here. Return here if worse or other concerns.
Interventions
Interventions:
*General Assessment Last Done: 06/24/24 17:06
*Neglect/Abuse Screening Last Done: 06/24/24 20:30
*ED- Fall Risk Assessment Last Done: 06/24/24 20:30
*ED COVID-19 Vaccine History Last Done: 06/24/24 20:30
ED- Cardiac Assessment Last Done: 06/24/24 20:30
ED- Neurological Assessment Last Done: 06/24/24 20:30
ED- Pulmonary Assessment Last Done: 06/24/24 20:30
Discharge Date and Time
Print Language: ALBANIAN
[2024-06-24 20:30] VITALS: BMI 29.1
[2024-06-24 20:33] VITALS: BP 124/83
[2024-06-24] MEDS: NSS 1000 IV (22:16)
[2024-06-24 23:21] VITALS: BP 122/97
[2024-06-25] VITALS: BP 136/89
[2024-06-25] MEDS: NSS 1000 IV (00:05)
[2024-06-25 01:00] VITALS: BP 129/94
== END 2024-06-25 01:29 | disposition home or self-care (01) ==
LOC: EMR 17:02
PROVIDERS: Emergency Medicine; EMERGENCY PHYSICIAN Emergency Medicine; FAMILY PHYSICIAN Family Medicine
DX: E86.0 Dehydration (principal); J45.909 Unspecified asthma, uncomplicated; Q39.0 Atresia of esophagus without fistula; K50.90 Crohn's disease, unspecified, without complications; Z90.49 Acquired absence of other specified parts of digestive tract
CPT/HCPCS: 99283; 96360 ×2; 96361; 80053; 85025; 93005

== ENCOUNTER 2024-07-01 13:46 | Emergency (ER) | payer MEDICARE, OTHER, SELFPAY ==
[2024-07-01 13:49] VITALS: BP 129/85
[2024-07-01 16:47] VITALS: BMI 29.1
--- NOTE | 2024-07-01 16:49 | ED.GENMED ---
History of Present Illness
General
Chief Complaint: Numbness
Source: patient
Exam Limitations: none
Time Seen by Provider: 07/01/24 16:16
Nursing documentation reviewed up to this point in time: agreed with
History of Present Illness
History of Present Illness:
Patient is a 28 year-old male presenting with worsening pain and swelling of right forearm near recent IV insertion site. Patient seen in the ED last week where an IV placement was attempted in his right forearm although the vein blew and was
unsuccessful. He had swelling and pain in the arm, which she was treating at home with Warm compresses and Tylenol. Symptoms were initially improving, although swelling seemed to worsen a few days ago and he thought he was noticing some redness in
the area. He is concerned for a possible infection around IV site. He also knows a tingling in his right forearm. He was having difficulty completing his activities at PT/OT due to the symptoms
Patient denies any fever, chills, chest pain, or shortness of breath.
Past History
Past History
ED Past Medical History: Asthma (esophageal atresia), Other (Esophageal atresia, tracheoesophageal fistula, tracheal cleft, GJ tube, aspiration pneumonia) and Other (Crohn's disease, colitis.)
ED Past Surgical History: Cholecystectomy and Other (JG tube, tracheoesophageal fistula repair, laryngeal cleft repair, prior tracheostomy.)
Patient has exhibited threatening behavior?: No
PSI?: No
Social History
Tobacco: Non-smoker
Alcohol: None
Drug: None
Personal: Single
Living: with family
Employment: Not employed
Family History
Family History: Other (Noncontributory)
Review of Systems
Review of Systems
Allergies reviewed?: Yes
All Other Systems: ROS reviewed and negative except as documented in HPI and ROS
Phy Exam
Physical Exam
Physical Exam:
Vitals: Mildly tachycardic, otherwise vital signs are stable. Afebrile
General: Patient is well appearing, no acute distress
Skin: Small firm subcutaneous nodule on right ventral forearm with overlying ecchymosis. No surrounding erythema, warmth, or red streaking
Head: Normocephalic, atraumatic
Throat: Protecting airway
Neck: Normal ROM, no cervical spine tenderness
Cardiac: Borderline tachycardic. spit fistula right chest wall
Pulm: No apparent respiratory distress
Abdomen: G and J tubes noted. Nondistended
Extremities:Firm nodule of right forearm as above. Full active ROM in right elbow and right wrist. Strength 5/5 in RUE. Sensation intact. Cap refill WNL.
Neuro: Grossly intact
Psychiatric: Normal affect.
Course
Orders/Labs/Results
Orders:
Orders
07/01/24 16:48
US Arms, Right [US Periph Venous UPPER Ext RT] Urgent
Comment:
Reason For Exam: Swelling/pain in right forearm
Vital Signs
Initial and Last Documented VS:
Initial Vital Signs
Temp Pulse Resp BP Pulse Ox
98.3 F 105 18 129/85 97
07/01/24 13:49 07/01/24 13:49 07/01/24 13:49 07/01/24 13:49 07/01/24 13:49
Last Documented Vital Signs
Temp Pulse Resp BP Pulse Ox
98.3 F 95 16 120/93 97
07/01/24 13:49 07/01/24 17:06 07/01/24 17:06 07/01/24 17:06 07/01/24 17:06
MDM/Problems Addressed
Differential Diagnosis Includes:
Not limited to: hematoma, infected hematoma, abscess, superficial thrombophlebitis, DVT, etc
MDM/Problems Addressed:
28-year-old male with healing hematoma of right forearm at sight of IV insertion site. No associated fever, chills. Vitals stable and he is afebrile. Physical exam as above. There is a small hematoma on the right ventral forearm with surrounding
ecchymosis. No surrounding erythema or warmth of RUE. No red streaking. No bony tenderness of RUE w/ full range of motion and right wrist and elbow. Capillary refill normal. An ultrasound was obtained, which shows no evidence of DVT of right upper
extremity however, notes a hematoma. Do not suspect infectious process however will send patient home with prescription for Keflex if symptoms persist/ worsen. He will discuss with primary care. Advised warm compress, elevation, Tylenol for pain.
Return precautions discussed. Patient and patients mom comfortable with plan.
Chronic conditions affecting care:
N/A
Acute Exacerbation and/or Progression of Chronic Illness:
N/A
*Radiology
Radiology exam reviewed: radiology read reviewed
*Pulse Oximetry
Patient hypoxic: no
*EKG
Interpreted by ED Provider?: NA
*Wall Insulation Sprayer Interpretation
Rate: Wall Insulation Sprayer- N/A
*Critical Care Note
Total Time (30-74mins, 75-104mins- exclusive of procedures): Not Applicable
Patient Management
Escalation/DeEscalation of care consider admission/obs:
Admit not indicated
ED Attending Note
-
Portions of this chart may have been created with voice recognition software.� Occasional wrong word or��sound alike� substitutions may have occurred due to the inherent limitations of voice recognition software.
Discharge Plan
Departure
Patient Disposition: Home (Routine Discharge)
Date of Disposition: 07/01/24
Time of Disposition: 19:17
Patient with high blood pressure during this ER visit?: Yes
Condition: Good
Covid-19: Not Applicable
Discharge Problem:
Hematoma of right forearm
Instructions: BLOOD PRESSURE, Hematoma
Prescriptions:
New
cephalexin 250 mg/5 mL suspension for reconstitution
500 mg feeding tube QID 5 Days Qty: 200 0RF
No Action
cetirizine [Children's Cetirizine] 5 MG/5 ML solution
10 mg feeding tube DAILY
VSL#3 1 EACH capsule
2 cap feeding tube DAILY
Saline Neb
1 unit inhalation BID
balsalazide [Colazal] 750 MG capsule
3 capsules feeding tube TID
Erythromycin
5 ml feeding tube TID
Patient Comments:
states concentration is 400mg per 5 ml
Qvar
1 puff inhalation PRN PRN (Reason: only when 'very sick')
Pepcid:
2.5 ml feeding tube BID
Rifaximin
1 tab feeding tube TID
Senna Syrup
5 ml feeding tube DAILY
albuterol sulfate 2.5 MG/3 ML solution for nebulization
2.5 mg inhalation R Q4HPRN PRN (Reason: sob/wheezing)
sucralfate 1 GRAM tablet
1 g feeding tube Q6H
baclofen 20 MG tablet
20 mg feeding tube BIDPRN PRN (Reason: muscle spasms)
cyanocobalamin (vitamin B-12) 1,000 MCG/ML solution
1,000 mcg SC MONTHLY
hyoscyamine sulfate [Levsin/SL] 0.125 MG tablet, sublingual
0.125 mg sublingual BIDPRN PRN (Reason: increased secreations)
pyridostigmine bromide [Mestinon] 60 MG/5 ML syrup
60 mg feeding tube Q8H
albuterol sulfate 1 PUFF HFA aerosol inhaler
2 puff inhalation R BID
hydromorphone 4 MG tablet
12 mg feeding tube HS
Patient Comments:
06/29/2021: last filled 06/17/2021, 105 tabs for 15 days from [facility]
hydromorphone 4 MG tablet
8 mg feeding tube BID@0800,1700
Patient Comments:
06/29/2021: last filled 06/17/2021, 105 tabs for 15 days from [facility]
cyclobenzaprine 5 MG tablet
5 - 10 mg feeding tube TIDPRN PRN (Reason: muscle spasms)
lansoprazole 30 MG tablet,disintegrat, delay rel
30 mg PO BID
alprazolam 0.5 MG tablet,disintegrating
1.5 mg PO TID
Patient Comments:
06/29/2021: last filled 06/07/2021, 90 tabs for 30 days from [id number]
Advair HFA 1 PUFF HFA aerosol inhaler
2 puff inhalation R BID
gabapentin 250 MG/5 ML solution
750 mg feeding tube BID
Motegrity 2 MG tablet
2 mg feeding tube DAILY
Vitamin D3
4 ml feeding tube DAILY
Referrals:
Rudy Snyder MD [Family Provider] - Follow up in 2-3 days
Activity Restrictions/Additional Instructions:
RETURN TO THE EMERGENCY DEPARTMENT WITH ANY FEVER, WORSENING PAIN/SWELLING AROUND HEMATOMA, SIGNIFICANT SURROUNDING REDNESS, RED STREAKING, OR ANY OTHER CONCERNS
- As discussed�your ultrasound performed in the emergency department showed no evidence of a blood clot. However�it did note a small hematoma.
- Continue to apply a warm compress and elevate your right arm as often as possible. You can take Tylenol as needed for pain.
- Monitor closely for signs of infection. I sent you home with a prescription for Keflex if signs of infection began. Please discuss with your primary care doctor
- Follow-up with your primary care for further evaluation/management to ensure that symptoms are improving
Monitor your symptoms closely and return to the emergency department with any acute worsening/new symptoms or any other concerns
Interventions
Interventions:
*Risk Screen - Suicide Last Done: 07/01/24 13:49
*General Assessment Last Done: 07/01/24 13:49
*Neglect/Abuse Screening Last Done: 07/01/24 13:49
*ED- Fall Risk Assessment Last Done: 07/01/24 16:48
*ED COVID-19 Vaccine History Last Done: 07/01/24 13:49
*Nursing Disposition Last Done: 07/01/24 19:48
ED- Neurological Assessment Last Done: 07/01/24 16:48
Discharge Date and Time
Discharge Date/Time: 07/01/24 19:49
Print Language: JAPANESE
[2024-07-01 17:06] VITALS: BP 120/93
== END 2024-07-01 19:49 | disposition home or self-care (01) ==
LOC: EMR 13:46
PROVIDERS: EMERGENCY PHYSICIAN Emergency Medicine; FAMILY PHYSICIAN Family Medicine
DX: S50.11XA Contusion of right forearm, initial encounter (principal); M79.631 Pain in right forearm; R22.31 Localized swelling, mass and lump, right upper limb; X58.XXXA Exposure to other specified factors, initial encounter; R20.0 Anesthesia of skin; J45.909 Unspecified asthma, uncomplicated; K50.90 Crohn's disease, unspecified, without complications; Z90.49 Acquired absence of other specified parts of digestive tract
CPT/HCPCS: 99284; 93971

== ENCOUNTER 2024-07-21 10:36 | Inpatient (IN) | payer MEDICARE, OTHER, SELFPAY ==
[2024-07-21] VITALS (9 sets, daily range): BP systolic 123–149; BP diastolic 88–107; BMI 29.0; BMI 25.5
[2024-07-21 02:35] LABS: Lactic Acid 0.9 mmol/L (0.7-2.0)
[2024-07-21 02:39] LABS: Hematocrit 44.3 % (39.0-52.0); Hemoglobin 14.8 g/dL (13.0-18.0); Mean Corp Hgb Conc. 33.4 g/dL (33.0-37.0); Mean Corpuscular Hgb 29.6 pg (27.0-31.0); Mean Corpuscular Volume 88.6 fL (80.0-94.0); Mean Platelet Volume 12.7 fL (7.4-10.4); Platelet Count 142 10^3/uL (130-400); White Blood Cell Count 11.9 10^3/uL (4.8-10.8)
[2024-07-21 02:45] LABS: ALT (SGPT) 124 U/L (0-50); AST (SGOT) 123 U/L (17-59); Albumin 5.1 g/dl (3.5-5.0); Alkaline Phosphatase 392 U/L (38-126); Blood Urea Nitrogen 9 mg/dl (9-20); Carbon Dioxide 27 mmol/L (22-30); Chloride 109 mmol/L (98-107); Glucose 123 mg/dl (70-99); Potassium 4.8 mmol/L (3.5-5.1); Sodium 143 mmol/L (135-145); Total Bilirubin 1.2 mg/dl (0.2-1.3); Total Protein 8.4 g/dl (6.3-8.2); eGFR > 60.00
[2024-07-21 03:21] LABS: Absolute Neutrophils -Man Diff 9.4 10^3/uL (1.4-6.5); Anisocytosis 1+; Band Neutrophils 0 % (0-3); Eosinophils 2 % (0-6); Lymphocytes 17 % (20-51); Monocytes 2 % (2-9); Normal RBC Morphology No; Platelets Checked Yes; Segmented Neutrophils 79 % (42-75); Total Cells Counted 100
[2024-07-21 04:25] LABS: Lipase 21 U/L (23-300)
[2024-07-21] MEDS: DUONEB 3 ML INH ×2 (05:51→20:03)
[2024-07-21 05:56] LABS: Urine Albumin Negative (Neg - Trace); Urine Bilirubin Negative (Negative); Urine Character Clear (Clear); Urine Color Yellow; Urine Glucose Negative (Negative); Urine Ketone Negative (Negative); Urine Leukocyte Negative (Negative); Urine Nitrite Negative (Negative); Urine Occult Blood Negative (Negative); Urine Urobilinogen Negative (Neg - 1+)
[2024-07-21] MEDS: DECADRON 10 MG IV (06:03)
[2024-07-21 06:11] LABS: COVID-19 Antigen Negative (Negative)
--- NOTE | 2024-07-21 06:17 | ED.GENMED ---
History of Present Illness
General
Chief Complaint: Fever
Source: patient
Exam Limitations: none
Time Seen by Provider: 07/21/24 05:19
Nursing documentation reviewed up to this point in time: agreed with
History of Present Illness
History of Present Illness:
28-year-old male with significant past medical history of Crohn's disease has an esophageal pouch as well as J-tube in place, history of asthma and COPD, presenting to the emergency department today with concerns of fevers chills diarrhea as well as
breathing issues recently diagnosed with pneumonia currently on amoxicillin and doxycycline. Also was in [place] 3 days ago and had low blood sugar also had a CT scan of the Jtube to ensure no complications due to patient having some pain there which
did not show any emergent findings
Past History
Past History
ED Past Medical History: Asthma (esophageal atresia), Other (Esophageal atresia, tracheoesophageal fistula, tracheal cleft, GJ tube, aspiration pneumonia) and Other (Crohn's disease, colitis.)
ED Past Surgical History: Cholecystectomy and Other (JG tube, tracheoesophageal fistula repair, laryngeal cleft repair, prior tracheostomy.)
Patient has exhibited threatening behavior?: No
PSI?: No
Social History
Tobacco: Non-smoker
Alcohol: None
Drug: None
Personal: Single
Living: with family
Employment: Not employed
Family History
Family History: Other (Noncontributory)
Review of Systems
Review of Systems
Allergies reviewed?: Yes
All Other Systems: ROS reviewed and negative except as documented in HPI and ROS
Phy Exam
Physical Exam
Physical Exam:
GENERAL: Alert , in no apparent distress
EYE: pupils equal and reactive
NECK: Supple, no significant adenopathy.
ENT: o/p clr, mmm.
CARDIAC: Regular rate and rhythm .
LUNGS: Diffuse inspiratory expiratory wheezing
ABDOMEN: Soft, without focal tenderness, no r/g, no cvat
NEUROLOGICAL: Alert and oriented, no focal neuro deficits
SKIN: Warm and dry, skin intact.
MUSCULOSKELETAL: No edema, well perfused.
PSYCH: Normal and appropriate interaction.
Sepsis
Sepsis Screening
Sepsis Assessment: Sepsis Ruled Out
Sepsis Screen
Sepsis Screen: Sepsis Ruled Out
Date: 07/23/24
Time: 06:18
Course
Orders/Labs/Results
Orders:
Orders
07/21/24 01:52
ECG [Electrocardiogram (*1)] Urgent
Reason for Study: Shortness of Breath
07/21/24 01:53
EKG- Treatment ONCE
07/21/24 02:10
Complete Blood Count/With Diff Urgent
Comprehensive Metabolic Panel Urgent
Lactic Acid Urgent
Lipase Urgent
Comment: ADDED
Manual Differential Urgent
Comment: ADD ON
07/21/24 03:24
Add On- LAB Urgent
Tests Added?: LIPASE
07/21/24 05:21
Urinalysis Reflex To Culture Urgent
Date Specimen was Collected: 07/21/24
Time Specimen was Collected: 05:18
07/21/24 05:29
Dexamethasone Pf [Decadron] 10 mg PO NOW STA
Ipratropium/Albuterol Sulfate [Duoneb] 3 ml INH R NOW ONE
Chest [CR Chest - 2 Views ] Urgent
Comment:
Reason For Exam: cough fever
07/21/24 05:37
COVID-19 Antigen Urgent
Source: Nasal Swab
Influenza A+B Rapid Molecular Urgent
DAVID Source: Nasal Swab
Specimen Description:
07/21/24 06:02
Dexamethasone Sod Phosphate [Decadron] 10 mg IV NOW STA
07/21/24 06:37
Azithromycin 500 mg/250 ml [Zithromax Infusion] 500 mg in 250 ml IV NOW
Piperacillin/Tazo 4.5 Gram [Zosyn] 4.5 gram in 100 ml IV NOW
07/21/24 06:38
CT Chest With Iv Contrast Urgent
Comment:
Reason For Exam: abnormal CXR
07/21/24 06:46
0.9% Sodium Chloride 500 ml [Nss] 500 ml IV BOLUS
07/21/24 09:38
Norovirus by PCR Routine
DAVID Source: Feces/Stool
Specimen Description:
Stool Culture Routine
DAVID Source: Feces/Stool
Specimen Description:
07/21/24 09:55
INFECTIOUS DISEASE CONSULT Routine
Consulting Provider: Ange Acevedo
Was physician already notified: Yes
07/21/24 Lunch
Tube Feeding
At Your Request: Non-Participating
Tube Feeding Product: Tube Feeding Per RD
Advance to goal rate (mL/hr): 140
Additional Tube Feeding Instructions: OK for patient to use Nutrient 1.5 and mixed with Pediolyte
Flush Continuous pump feedings with water (mL/hr): 25
07/21/24 10:02
Admit/Transfer Patient As Directed
Co-Sign Provider:
Level of Care: Inpatient admission
Assign to:: Medical/Surgical
Physician / Group: Rima/hospitalist
Diagnosis: fever/chills
Reason for Hospitalization: fever/chills
Expected length of stay greater than two midnights?: Yes
ELOS- Estimated Length of Stay in days: 3
I certify the patient meets the requirements for IP care: Yes
PRN Pain Medication Management As Directed
May give lesser potent ordered pain med per pt: Yes
preference::
Protocol:: Medication orders for pain may be administered in a
manner that supports deferring to patient preference
when the pt is:
- Requesting an ordered lesser potent pain medication.
Least to most potent pain medications are defined
as: acetaminophen < NSAID < tramadol < opioids
(morphine, oxycodone, hydromorphone).
- Requesting a lesser dose of the same medication IF
ORDERED.
- Requesting a less intrusive route of administration
if both routes are prescribed by the provider (PO <
IV).
07/21/24 10:05
Code Status As Directed
Resuscitation Status: Full Code
07/21/24 10:42
Blood Culture Q30M
DAVID Source: Blood/Venous
Specimen Description:
Comment: IF NOT OBTAINED IN ED
Melatonin 6 mg TUBE HSPRN PRN
Sennosides [Senna Syrup] 8.8 mg TUBE BIDPRN PRN
Tizanidine [Zanaflex] 2 mg TUBE Q8H PRN
07/21/24 10:42
Activity As Directed
Activity Level: As Tolerated
Intake/ Output As Directed
Frequency: Per unit guidelines
Vital Signs As Directed
Frequency: Per unit guidelines
DX Deep Vein Thrombosis Video Routine
07/21/24 11:12
Blood Culture Q30M
DAVID Source: Blood/Venous
Specimen Description:
Comment: IF NOT OBTAINED IN ED
07/21/24 11:27
Acetaminophen [Tylenol] 1,000 mg TUBE Q6HPRN PRN
07/21/24 11:30
Lactic Acid Q4H
Comment: repeat q4 hours x 4 or until less than 2 mmol/L
Procalcitonin Routine
If negative, will antibiotics be d/c'd or not started: Yes
Does the patient have renal or hepatic impairment?: No
Any recent (w/in 48 hrs) physiologic stress (CPR, rhabdo): No
Blood Culture Q30M
DAVID Source: Blood/Venous
Specimen Description:
Blood Culture Q30M
DAVID Source: Blood/Venous
Specimen Description:
07/21/24 12:00
Cyproheptadine HCl [Periactin] 4 mg TUBE QID@08,12,16,20
Dicyclomine [Bentyl 10Mg/5Ml Syrup] 10 mg TUBE Q6H
HYDROmorphone [Dilaudid] 8 mg TUBE Q4H
Ondansetron HCl [Zofran] 4 mg TUBE Q6H
prucalopride [Motegrity] 2 mg TUBE DAILY@1200
07/21/24 13:46
Urinalysis Reflex To Culture Urgent
Date Specimen was Collected: 07/21/24
Time Specimen was Collected: 13:45
07/21/24 14:00
Gabapentin [Neurontin] 900 mg TUBE DAILY@1400
Ipratropium Nebs [Atrovent Nebules] 0.5 mg INH R TID
Sodium Chloride 3% INH [Sodium Chloride 3% For Inhalation] 1 vial INH R TID
07/21/24 16:00
Alprazolam [Xanax] 1 mg TUBE TID
Cyclobenzaprine HCl [Flexeril] 15 mg TUBE TID
07/21/24 18:00
Enoxaparin Sodium [Lovenox] 40 mg SC QPM
07/21/24 20:00
Amoxicillin/Clavulanate Potass [Augmentin 200 mg/5 ml] 800 mg TUBE BID
Budesonide/Formoterol 160/4.5 [Symbicort 160/4.5 Mcg Inhaler] 2 puff INH R BID
Doxycycline [Vibramycin] 100 mg TUBE BID
Famotidine [Pepcid] 20 mg TUBE BID@0800,1999
Lansoprazole [Prevacid] 30 mg TUBE BID
07/21/24 22:00
Cetirizine HCl [Zyrtec] 10 mg TUBE HS
Gabapentin [Neurontin] 1,500 mg TUBE HS
07/22/24 07:36
Complete Blood Count/With Diff IN AM
Comprehensive Metabolic Panel IN AM
07/22/24 08:00
Gabapentin [Neurontin] 1,200 mg TUBE DAILY
naloxegol [Movantik] 6.25 mg PO DAILY
07/23/24 06:00
Complete Blood Count/With Diff IN AM
Comprehensive Metabolic Panel IN AM
07/24/24 06:00
Complete Blood Count/With Diff IN AM
Comprehensive Metabolic Panel IN AM
07/24/24 11:00
Scopolamine [Transderm-Scop] 1 patch TRANSDERM Q3D
07/29/24 08:00
Tobramycin Sulfate [Nebcin] 300 mg INH BID
Abnormal Lab Results
07/21/24
02:10
WBC 11.9 H 10^3/uL
(4.8-10.8)
MPV 12.7 H fL
(7.4-10.4)
Abs Neuts (Manual) 9.4 H 10^3/uL
(1.4-6.5)
Segmented Neutrophils 79 H %
(42-75)
Lymphocytes (Manual) 17 L %
(20-51)
Chloride 109 H mmol/L
(98-107)
Creatinine 0.5 L mg/dL
(0.7-1.3)
Glucose 123 H mg/dl
(70-99)
AST 123 H U/L
(17-59)
ALT 124 H U/L
(0-50)
Alkaline Phosphatase 392 H U/L
(38-126)
Total Protein 8.4 H g/dl
(6.3-8.2)
Albumin 5.1 H g/dl
(3.5-5.0)
Lipase 21 L U/L
(23-300)
07/21/24 02:10
07/21/24 02:10
Vital Signs
Initial and Last Documented VS:
Initial Vital Signs
Temp Pulse Resp BP Pulse Ox
99.2 F 138 24 138/88 96
07/21/24 01:47 07/21/24 01:47 07/21/24 01:47 07/21/24 01:47 07/21/24 01:47
Last Documented Vital Signs
Temp Pulse Resp BP Pulse Ox
97.6 F 89 18 111/71 100
07/23/24 03:05 07/23/24 03:05 07/23/24 03:05 07/23/24 03:05 07/23/24 03:05
MDM/Problems Addressed
MDM/Problems Addressed:
28-year-old male presenting to the emergency department mainly with respiratory symptoms fevers chills also has had some diarrhea has been on amoxicillin and doxycycline for presumed pneumonia over the past 5 days or so. Here patient does have
significant wheezing with started on dexamethasone as well as DuoNeb. Initially was tachycardic was given fluids with some and chest x-ray showing infiltrate to the right lower lobe and some additional abnormal findings. Was started on IV
antibiotics CT scan was ordered for further clarification otherwise will be admitted for further treatment and monitoring. Otherwise patient will be admitted for further treatment and monitoring.
*Critical Care Note
Total Time (30-74mins, 75-104mins- exclusive of procedures): Not Applicable
ED Attending Note
-
Portions of this chart may have been created with voice recognition software.� Occasional wrong word or��sound alike� substitutions may have occurred due to the inherent limitations of voice recognition software.
Discharge Plan
Departure
Patient Disposition: Admit
Date of Disposition: 07/21/24
Time of Disposition: 06:47
Admit to: Med/Surg
Admit to doctor: Vern
Presentation/result/management discussed w/ accepting MD/DO: Hospitalist
Patient with high blood pressure during this ER visit?: No
Condition: Good
Covid-19: Not Applicable
Discharge Problem:
Pneumonia
Interventions
Interventions:
*Risk Screen - Suicide Last Done: 07/21/24 01:47
*General Assessment Last Done: 07/21/24 05:19
*Neglect/Abuse Screening Last Done: 07/21/24 01:47
*ED- Fall Risk Assessment Last Done: 07/21/24 15:44
*ED COVID-19 Vaccine History Last Done: 07/21/24 05:19
*Nursing Disposition Last Done: 07/21/24 15:44
ED- Neurological Assessment Last Done: 07/21/24 05:19
ED-Skin Assessment Last Done: 07/21/24 05:19
Discharge Date and Time
Discharge Date/Time: 07/21/24 15:44
[2024-07-21] MEDS: NSS 500 IV (08:00)
[2024-07-21] MEDS: ZOSYN 100 IV (08:00)
[2024-07-21] MEDS: ZITHROMAX INFUSION 250 IV (09:14)
--- NOTE | 2024-07-21 09:31 | HPS.HSE ---
Family Physician
-
Family Physician: Rudy Snyder
Chief Complaint
-
fevers and chills that started the day [facility].
History of Present Illness
HPI: 28-year-old male PMH of Crohn's disease, s/p TE fistula repair, s/p trach and removal, s/p esophagostomy, s/p J-tube in place, history of asthma/COPD, p/w fevers and chills that started the day [facility].
He was recently diagnosed with pneumonia and was started with amoxicillin and doxycycline, which he continues to take. He was also given a short steroid course which he has completed.
He states that he developed watery diarrhea since taking amoxicillin and doxycycline; stool now slightly more formed.
He was at [place] 3 days [facility] for pain around his J tube; per pt, CT AP obtained at that time showed no complication of his J tube.
Pt states that he is strict NPO, and he gets his nutrition through tube feed.
Medical History
Past Medical History
Past Medical History: Reports Other
Additional Past Medical History:
Crohn's disease,
s/p TE fistula repair,
s/p trach and removal,
s/p esophagostomy,
s/p J-tube in place,
history of asthma/COPD
Past Surgical History: Reports Other
Additional Past Surgical History:
see PMH
Social History
Tobacco: Non-smoker
Living: With Family
Family History
Family History: Other
Allergies / Home Medications
Allergies reflects when Allergies were last updated in [facility].
Home Medications with original date entered in [facility]
Allergy/Medication List:
Allergies
Allergy/AdvReac Type Severity Reaction Status Date / Time
lactose [Lactose] Allergy Severe Hives Verified 07/21/24 01:52
sodium bicarbonate Allergy Severe Hives Verified 07/21/24 01:52
[Sodium Bicarbonate]
cefdinir Allergy Rash Verified 07/21/24 01:52
levofloxacin [From Levaquin] Allergy joint pain Verified 07/21/24 01:52
NSAIDS (Non-Steroidal Allergy Unknown Verified 07/21/24 01:52
Anti-Inflamma
omeprazole Allergy Unknown Verified 07/21/24 01:52
theophylline Allergy Unknown Verified 07/21/24 01:52
vancomycin Allergy Unknown Verified 07/21/24 01:52
Home Medications
cetirizine 1 mg/mL oral solution (Children's Cetirizine) 10 mg feeding tube HS Allergies 02/27/10
famotidine 40 mg/5 mL (8 mg/mL) oral suspension 20 mg feeding tube BID@0800,2000 ##0 03/13/20
sennosides 8.8 mg/5 mL oral syrup (senna) 8.8 mg feeding tube BIDPRN PRN constipation ##0 03/13/20
cholecalciferol (vitamin D3) 10 mcg/mL (400 unit/mL) oral drops (D-Vi-Samanta) 10 mcg feeding tube DAILY Supplement ##0 06/29/21
gabapentin 250 mg/5 mL (5 mL) oral solution 1,200 mg feeding tube DAILY 06/29/21
lansoprazole 30 mg delayed release,disintegrating tablet (Prevacid SoluTab) 30 mg feeding tube BID Gastrointestinal issue 06/29/21
prucalopride 2 mg tablet (Motegrity) 2 mg feeding tube DAILY@1200 Constipation 06/29/21
Ursodiol 50mg/Ml 6 ml feeding tube BID 07/21/24
acetaminophen 160 mg/5 mL (5 mL) oral solution 1,000 mg feeding tube BIDPRN PRN mild pain 07/21/24
alprazolam 1 mg disintegrating tablet 1 mg feeding tube TID 07/21/24
amoxicillin 400 mg-potassium clavulanate 57 mg/5 mL oral suspension 10 ml feeding tube BID 07/21/24
aprepitant 40 mg capsule 40 mg feeding tube DAILY 07/21/24
budesonide-formoterol HFA 160 mcg-4.5 mcg/actuation aerosol inhaler (Symbicort) 2 inh inhalation R BID 07/21/24
cyclobenzaprine 10 mg tablet 15 mg feeding tube TID 07/21/24
cyproheptadine 2 mg/5 mL oral syrup 4 mg feeding tube QID@08,12,16,20 07/21/24
dicyclomine 10 mg/5 mL oral solution 10 mg feeding tube Q6H 07/21/24
doxycycline hyclate 100 mg capsule 100 mg feeding tube BID 07/21/24
gabapentin 250 mg/5 mL (5 mL) oral solution 1,500 mg feeding tube HS 07/21/24
gabapentin 250 mg/5 mL oral solution 900 mg feeding tube DAILY@1400 07/21/24
hydromorphone 1 mg/mL oral liquid 8 mg feeding tube Q4H 07/21/24
ipratropium bromide 0.02 % solution for inhalation 2.5 ml inhalation R TID 07/21/24
melatonin 3 mg tablet 6 mg feeding tube HSPRN PRN sleep 07/21/24
metoclopramide HCl 5 mg/5 mL oral solution 5 mg feeding tube TIDPRN PRN spasms 07/21/24
naloxegol 12.5 mg tablet (Movantik) 6.25 mg PO DAILY feeding tube 07/21/24
ondansetron HCl 4 mg/5 mL oral solution 4 mg feeding tube Q6H 07/21/24
scopolamine base 1 mg over 3 days transdermal patch 1 patch transdermal Q3D 07/21/24
sodium chloride 7 % for nebulization 1 inh inhalation R TID 07/21/24
tizanidine 2 mg tablet 2 mg feeding tube Q8H PRN muscle spasms 07/21/24
tobramycin 300 mg/5 mL in 0.225 % sodium chloride for nebulization 5 ml inhalation DIRECTED 07/21/24
ustekinumab 90 mg/mL subcutaneous syringe (Stelara) 90 mg SC MONTHLY 07/21/24
Review of Systems
-
Constitutional: Reports Fever and Chills
Respiratory: Reports See HPI and Cough (chronic cough for years)
Abdomen/GI: Reports Diarrhea; Denies Abdominal Pain
Physical Exam
Vital Signs
Vital Signs
Temp Pulse Resp BP Pulse Ox
37.3 C 116 18 140/107 97
07/21/24 01:47 07/21/24 05:26 07/21/24 05:26 07/21/24 09:19 07/21/24 05:26
Physical Exam
General: Well Developed, Well Nourished, Comfortable, Conversant and Appears Chronically Ill
HEENT: NormoCephalic and Other (esophagostomy)
Respiratory: Clear, Non Labored Respirations and Other (coarse breath sound); No Accessory Resp Muscle Use
Cardiac: S1/S2 and Regular Rhythm; No Murmur or Rub
GI: Soft, Non Tender, Non Distended, Normal Bowel Sounds and Other (J tube); No Organomegaly
Rectal: Deferred by Provider
Musculoskeletal: No Clubbing, No Cyanosis and No Edema
Skin: No Rash
Neuro: Awake and Alert
Psych: Calm and Intact Judgment/Insight
Laboratory Results
-
07/21/24 02:10
07/21/24 02:10
Laboratory Results
Lactic Acid 0.9 mmol/L (0.7-2.0) 07/21/24 02:10
Total Bilirubin 1.2 mg/dl (0.2-1.3) 07/21/24 02:10
AST 123 U/L (17-59) H 07/21/24 02:10
ALT 124 U/L (0-50) H 07/21/24 02:10
Alkaline Phosphatase 392 U/L (38-126) H 07/21/24 02:10
Lipase 21 U/L (23-300) L 07/21/24 02:10
Data Reviewed
-
CT Scan: Report Reviewed by me
Lab Data: Labs Reviewed by me
Impression/Plan
-
HPI: 28-year-old male PMH of Crohn's disease, s/p TE fistula repair, s/p trach and removal, s/p esophagostomy, s/p J-tube in place, history of asthma/COPD, p/w fevers and chills that started the day [facility].
He was recently diagnosed with pneumonia and was started with amoxicillin and doxycycline, which he continues to take. He was also given a short steroid course which he has completed.
He states that he developed watery diarrhea since taking amoxicillin and doxycycline; stool now slightly more formed.
He was at [place] 3 days [facility] for pain around his J tube; per pt, CT AP obtained at that time showed no complication of his J tube.
Pt states that he is strict NPO, and he gets his nutrition through tube feed.
A/P:
# Possible sepsis POA, unclear source
COVID/Flu negative
CT chest: No significant acute abnormality identified in the chest, Stable chronic changes from prior tracheoesophageal fistula repair.
Check blood cultures x2
Check Procal
Check stool studies if gopal to collect (on Abx [facility])
ID CS
Cont current amoxicillin and doxycycline for now until further directed by ID
# Elevated LFT, possibly reactive
Cont to trend
Other medical conditions:
# s/p TE fistula repair
# s/p trach and removal
# s/p esophagostomy
# s/p J-tube in place
# Crohn's disease
# history of asthma and COPD,
DVT ppx: Lovenox SQ
FC
total time 75 min
[2024-07-21 12:20] LABS: Lactic Acid 1.5 mmol/L (0.7-2.0)
[2024-07-21] MEDS: DILAUDID 8 MG TUBE ×4 (12:22→23:59)
[2024-07-21] MEDS: BENTYL 10 MG TUBE ×3 (12:22→23:22)
[2024-07-21] MEDS: ZOFRAN 4 MG TUBE ×3 (12:22→23:22)
[2024-07-21 12:31] LABS: Procalcitonin 0.77 ng/ml (0.0-0.25)
[2024-07-21] MEDS: ATROVENT NEBULES 0.5 MG INH (13:20)
[2024-07-21] MEDS: NEURONTIN 900 MG TUBE (14:08)
[2024-07-21] MEDS: PERIACTIN 4 MG TUBE ×3 (14:08→21:33)
[2024-07-21 14:13] LABS: Urine Albumin Negative (Neg - Trace); Urine Bilirubin Negative (Negative); Urine Character Clear (Clear); Urine Color Yellow; Urine Glucose Negative (Negative); Urine Ketone Negative (Negative); Urine Leukocyte Negative (Negative); Urine Nitrite Negative (Negative); Urine Occult Blood Negative (Negative); Urine Urobilinogen Negative (Neg - 1+)
[2024-07-21] MEDS: DUONEB INH (15:03)
[2024-07-21] MEDS: SODIUM CHLORIDE 3% FOR INHALATION INH (15:03)
[2024-07-21] MEDS: XANAX 1 MG TUBE ×2 (17:03→23:22)
[2024-07-21] MEDS: FLEXERIL 15 MG TUBE ×2 (17:03→23:21)
--- NOTE | 2024-07-21 17:07 | CON.ID ---
Consultation
-
Date/Time Consultation Requested: July 21, 2024 0955
Date/Time Consultation Performed: July 21, 2024 1710
Requesting Provider: Dr. Tarsha Abarca
Performing Provider: Dr. Ange Acevedo
Reason for Consultation: History of esophageal pouch, elev procal, CT chest without acute change
Chief Complaint / Past History
Chief Complaint
Fever and sweats
History of Present Illness
History obtained from the patient as well as from his mother at bedside. He presented to the hospital due to fever, malaise, sweats, wheezing yesterday. 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
tobramycin inhalation 2 weeks on/2 weeks off since 2021. He reports in early July he developed shortness of breath, and chest congestion and wheezing. He saw his rn clinical review July 10 and chest x-ray reportedly showed right lung opacity. He was
placed on Augmentin initially for 7 days. However he did not improve and therefore his rn clinical review extended the course for another 7 days. He was still not improving while on Augmentin, and his PCP added doxycycline 1 week ago. He also received
a brief course of steroid taper. His wheezing improved. However he still has congestion. He finished the tobramycin inhalation on July 14. Patient's developed diarrhea while on Augmentin. On Saturday he was seen at [facility] and stool was negative for
C. difficile. Also he was seen for leaking J-tube. CAT scan of the abdomen showed tube in the correct site. Over the weekend his mom heard wheezing again. Yesterday he developed the fever up to 101.5 with associated sweats and chills. Continues
to have respiratory symptoms. He came to the ED early this morning. Wheezing was heard and he was given 1 dose of dexamethasone. He also received a dose of Zosyn. Chest x-ray no acute change. Chest CT also unremarkable without any acute
process. In the meantime the wheezing has improved after dexamethasone. He denies ill contacts. No recent travel. Crohn's is well controlled on sterlara.
Past History
Additional Past Medical History:
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
tracheoesophageal fistula repair, age 3
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
G/J-tube placement
Laryngeal cleft repair 2015
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
Vocal cord paralysis
Crohn's on Stelara
GERD
Asthma
Chronic abdominal pain
Chronic back pain
Prior tracheostomy
Pelvic fracture s/p repair
Bilateral hip fracture s/p repair
Left rotator cuff repair
Allergy History:
lactose [Lactose] Allergy (Severe, Verified 07/21/24 01:52)
Hives
sodium bicarbonate [Sodium Bicarbonate] Allergy (Severe, Verified 07/21/24 01:52)
Hives
cefdinir Allergy (Verified 07/21/24 01:52)
Rash
levofloxacin [From Levaquin] Allergy (Verified 07/21/24 01:52)
joint pain
NSAIDS (Non-Steroidal Anti-Inflamma Allergy (Verified 07/21/24 01:52)
Unknown
omeprazole Allergy (Verified 07/21/24 01:52)
Unknown
theophylline Allergy (Verified 07/21/24 01:52)
Unknown
vancomycin Allergy (Verified 07/21/24 01:52)
Unknown
Medications Reviewed: Yes
Current Antibiotics:
Augmentin
Doxycycline
Social History
Tobacco: Non-Smoker
Alcohol: None
Drug: None
Personal: Single
Living: With Family
Family History
Family History: Not Pertinent
Review of Systems
Review of Systems
General: Fever and Chills
HEENT: Negative Sinus Problems or Headache
Respiratory: Dyspnea and Cough
Gasteroenterology: Diarrhea; Negative Nausea or Vomiting
Genital / Urological: Negative Dysuria or Flank Pain
Endocrine: Weakness
Neurological: Negative Dizziness
All systems: All other systems were reviewed and were negative
Vital Signs
Temp Pulse Resp BP Pulse Ox
98.7 F 129 14 142/98 97
07/21/24 15:50 07/21/24 15:50 07/21/24 15:50 07/21/24 15:50 07/21/24 15:50
Physical Exam
Physical Exam
Constitutional: Comfortable and Non-toxic
Head: Other (No frontal or max or sinus tenderness)
Eyes: No Conjunctival Hemorrhage and Sclera Anicteric
Cardiovascular: Regular Rate and S1/S2
Pulmonary: Coarse (throughout); Negative Wheezes or Rales
Gastrointestinal: Soft, Non Tender, Non Distended and Other (J-tube dressing with scant bile, tube site without drainage or erythema; G-tube site dressing dry)
Genito-Urinary: Negative CVA Tenderness
Extremities: Negative Edema
Neurological: AO x 3
Lab / Diagnostic Study Results
07/21/24 02:10
07/21/24 02:10
Total Counted 100 07/21/24 02:10
Abs Neuts (Manual) 9.4 10^3/uL (1.4-6.5) H 07/21/24 02:10
Segmented Neutrophils 79 % (42-75) H 07/21/24 02:10
Band Neutrophils 0 % (0-3) 07/21/24 02:10
Lymphocytes (Manual) 17 % (20-51) L 07/21/24 02:10
Eosinophils (Manual) 2 % (0-6) 07/21/24 02:10
Lactic Acid 1.5 mmol/L (0.7-2.0) 07/21/24 11:30
Procalcitonin 0.77 ng/ml (0.0-0.25) H 07/21/24 11:30
Microbiology Results
Micro:
07/21/24 11:30 Blood Culture - Pending
Blood/Venous
07/21/24 11:30 Blood Culture - Pending
Blood/Venous
07/21/24 05:37 Influenza Types A & B (WERNER) - Final
Nasal Swab Negative for Influenza A & B, NAAT
Negative results must be combined with clinical observations
and patient history.
Nucleic Acid Amplification test (NAAT)performed on the
[employer] platform.
07/21/[address]: No significant acute abnormality identified in the chest, as described above. Stable chronic changes from prior tracheoesophageal fistula repair.
07/21/24 CXR: no acute process
Assessment / Plan
# Fever at home
# SOB/chest congestion
# Asthma exacerbation
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
Esophagectomy, G/J tube August 2022
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
# Allergy to IV Vancomycin, FQ, cefdinir
- blood cx's pending
- UA neg
- Outpt C. diff negative
- CT chest and CXR no acute process
- Has been on outpt Augmentin and doxycycline without clinical response
- Probable tracheitis with Pseudomonas
- Pseudomonas may have developed drug resistance from prior multiple abx's
- Trial of meropenem 500mg IV q6h.
- DC augmentin and doxycycline.
- Follow temps, WBC
# Conditions MICRO PALEONTOLOGIST
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
tracheoesophageal fistula repair, age 3
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
G/J-tube placement
Laryngeal cleft repair 2015
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
Vocal cord paralysis
Crohn's on Stelara
GERD
Asthma
Chronic abdominal pain
Chronic back pain
Prior tracheostomy
Pelvic fracture s/p repair
Bilateral hip fracture s/p repair
Left rotator cuff repair
--- NOTE | 2024-07-21 17:43 | PTCARENOTE ---
Addendum entered by Rosaline Lei RN 07/21/24 19:41:
pt also had c.diff screening over the weekend down at [facility] that resulted negative on 07/18. MD and infectious disease made aware of this result. pt esophagostomy changed by patient and mother at bedside with nurses assessing for education. site with
increased localized erythema per patient and mother, wound/ostomy consult placed. patient specific medications sent down to pharmacy by this RN. orders being adjusted at this time. overnight House provider for 2N placing prn robitussin order. all
medications going through patient J tube. scopolamine patch behind L ear from home, placed 07/20.
Original Note:
pt uses neutra feeds 1.5 mixed with Pedialyte. consult for impregnation operator placed early 07/21. pt received from ED at 1600. unable to get appropriate orders for tube feeds. pt connected to his own tube feeds until properly seen by impregnation operator tomorrow. floor
performance manager made aware of delay. mother and pt made aware. pt with esophagostomy bag, gtube an j tube. tube feeds going at 60 with 40 flush. pt strict npo. distilled water at bedside. pt uses walker at baseline.
[2024-07-21] MEDS: LOVENOX SC ×2 (18:13→18:45)
[2024-07-21] MEDS: MERREM 500 MG IV ×2 (18:42→23:59)
[2024-07-21] MEDS: STERILE WATER FOR INJECTION 10 ML IV (18:42)
--- NOTE | 2024-07-21 19:58 | VATNOTE ---
pt stated right forearm IV was put in by Ultrasound in ER; catheter out 3 cm; informed pt. next might be a midline. Pt has had picc in past for TPN up until Mar 2024. VAT to follow.
[2024-07-21] MEDS: SYMBICORT 160/4.5 MCG INHALER 2 PUFF INH (20:03)
[2024-07-21] MEDS: SODIUM CHLORIDE 3% FOR INHALATION 1 VIAL INH (20:03)
[2024-07-21] MEDS: PREVACID 30 MG TUBE (20:44)
[2024-07-21] MEDS: PEPCID 20 MG TUBE (20:44)
[2024-07-21] MEDS: NEURONTIN 1500 MG TUBE (23:21)
[2024-07-21] MEDS: ZANAFLEX 2 MG TUBE (23:22)
[2024-07-21] MEDS: ZYRTEC 10 MG TUBE (23:22)
[2024-07-21] MEDS: MELATONIN 6 MG TUBE (23:22)
[2024-07-21] MEDS: TYLENOL SUSPENSION 1000 MG TUBE (23:23)
[2024-07-22] VITALS (7 sets, daily range): BP systolic 110–129; BP diastolic 71–94; PULSE 2–114; BMI 25.5
[2024-07-22] MEDS: STERILE WATER FOR INJECTION 10 ML IV ×4 (00:17→18:10)
[2024-07-22] MEDS: DILAUDID 8 MG TUBE ×5 (03:45→21:07)
[2024-07-22] MEDS: MERREM 500 MG IV ×3 (06:12→18:10)
[2024-07-22] MEDS: BENTYL 10 MG TUBE ×3 (06:12→18:10)
[2024-07-22] MEDS: ZOFRAN 4 MG TUBE ×4 (06:12→23:28)
[2024-07-22] MEDS: SODIUM CHLORIDE 3% FOR INHALATION 1 VIAL INH ×4 (07:24→22:00)
[2024-07-22] MEDS: DUONEB 3 ML INH ×4 (07:24→22:00)
[2024-07-22] MEDS: SYMBICORT 160/4.5 MCG INHALER 2 PUFF INH ×2 (07:24→22:00)
--- NOTE | 2024-07-22 08:00 | W.PN.HOSP.TC ---
Addendum entered and electronically signed by Diana Abarca MD 07/22/24 08:46:
No need for C diff stool studies as pt's stool was tested C diff negative this past week
Original Note:
Today's Communication/Plan
-
see A/P
Assessment / Plan
Assessment / Plan
HPI: 28-year-old male PMH of Crohn's disease, s/p TE fistula repair, s/p trach and removal, s/p esophagostomy, s/p J-tube in place, history of asthma/COPD, p/w fevers and chills that started the day [employer]ACHINE [employer].
He was recently diagnosed with pneumonia and was started with amoxicillin and doxycycline, which he continues to take. He was also given a short steroid course which he has completed.
He states that he developed watery diarrhea since taking amoxicillin and doxycycline; stool now slightly more formed.
He was at [facility] 3 days [employer]ACH[employer] for pain around his J tube; per pt, CT AP obtained at that time showed no complication of his J tube.
Pt states that he is strict NPO, and he gets his nutrition through tube feed.
A/P:
# Possible sepsis POA, source possible tracheitis with Pseudomonas
COVID/Flu negative
CT chest: No significant acute abnormality identified in the chest, Stable chronic changes from prior tracheoesophageal fistula repair.
Follow blood cultures x2
Procal 0.77
Check stool studies if gopal to collect (on Abx [employer] MACHINE [employer]BEAR[employer])
UA clean
ID on board
Changed W[employer] MACH[employer] amoxicillin and doxycycline to Merrem to cover for possible tracheitis with Pseudomonas
# Elevated LFT, possibly reactive
Cont to trend
Other medical conditions:
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
# tracheoesophageal fistula repair, age 3
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
# G/J-tube placement
# Laryngeal cleft repair 2015
# Pseudomonas colonization in lungs on SULLY 2 weeks on/2 weeks off since 2021
# Vocal cord paralysis
# Crohn's on Stelara
# GERD
# Asthma
# Chronic abdominal pain
# Chronic back pain
# Prior tracheostomy
# Pelvic fracture s/p repair
# Bilateral hip fracture s/p repair
# Left rotator cuff repair
DVT ppx: Lovenox SQ
FC
DW mother at bedside
total time 51 min
Anticipated Discharge: > 48 hours
Subjective/Interval History
-
Date of Service: July 22, 2024
Objective Data
-
Labs:
Laboratory Results
07/22/24
07:36
WBC Pending
Hgb Pending
Hct Pending
Plt Count Pending
Sodium Pending
Potassium Pending
Chloride Pending
Carbon Dioxide Pending
BUN Pending
Creatinine Pending
Glucose Pending
Calcium Pending
Total Bilirubin Pending
AST Pending
ALT Pending
Alkaline Phosphatase Pending
Vital Signs:
Vital Signs
Temp Pulse Resp BP Pulse Ox
37.1 C 114 16 122/85 100
07/22/24 03:17 07/22/24 07:25 07/22/24 07:25 07/22/24 03:17 07/22/24 07:25
I&O
07/21/24 07/22/24 07/23/24
06:59 06:59 06:59
Intake Total 200 / 200 2000 / 2000
Output Total 2039 / 2039 500 / 500
Balance -1840 / -1840 1500 / 1500
Review of Systems
-
History Source: Patient
All other systems: Reviewed and negative
Physical Exam
-
General: Well Developed, Well Nourished, No Apparent Distress, Comfortable and Conversant; Negative Respiratory Distress
HEENT: Normocephalic, Atraumatic, Nose Appears Normal and Ears Appear Normal; Negative Oxygen
Respiratory: Clear to Auscultation and Non Labored Respirations; Negative Accessory Resp Muscle Use
Cardiac: Regular Rhythm and S1/S2
GI: Soft, Nontender, Nondistended, Normal Bowel Sounds and Peg Tube
Skin: Warm and Dry
Neuro: Awake, Alert and Oriented
Psych: Calm and Intact Judgement/Insight
Data Reviewed
-
CT Scan: Report Reviewed by me, Discussed with Patient and Discussed with Family
Labs: Labs Reviewed by me
[2024-07-22 08:34] LABS: % Basophils 0.2 % (0-2); % Eosinophils 0.1 % (0-6); % Immature Granulocytes 0.3 % (0-0.5); % Lymphocytes 13.7 % (20.5-51.1); % Monocytes 7.6 % (1.7-9.3); % Neutrophils 78.1 % (42.2-75.2); Absolute Lymphocytes 1.6 10^3/uL (1.2-3.4); Absolute Monocytes 0.9 10^3/uL (0.1-0.6); Absolute Neutrophils 8.9 10^3/uL (1.4-6.5); Hematocrit 45.7 % (39.0-52.0); Mean Corp Hgb Conc. 32.8 g/dL (33.0-37.0); Mean Corpuscular Hgb 29.1 pg (27.0-31.0); Mean Corpuscular Volume 88.6 fL (80.0-94.0); Mean Platelet Volume 13.9 fL (7.4-10.4); Nucleated Red Blood Cells % 0 % (-); Platelet Count 157 10^3/uL (130-400); Red Blood Cell Count 5.16 10^6/uL (4.70-6.10); White Blood Cell Count 11.4 10^3/uL (4.8-10.8)
--- NOTE | 2024-07-22 08:37 | VNURNOTE ---
Chart reviewed. Patient is current with [facility] home PT, OT. Will continue to follow hospital course and DC plans.
[2024-07-22 08:55] LABS: ALT (SGPT) 136 U/L (0-50); AST (SGOT) 95 U/L (17-59); Albumin 4.7 g/dl (3.5-5.0); Alkaline Phosphatase 336 U/L (38-126); Blood Urea Nitrogen 17 mg/dl (9-20); Calcium 9.7 mg/dl (8.4-10.2); Carbon Dioxide 24 mmol/L (22-30); Chloride 107 mmol/L (98-107); Estimated Creatinine Clearance > 125 ml/min; Glucose 172 mg/dl (70-99); Potassium 4.4 mmol/L (3.5-5.1); Sodium 142 mmol/L (135-145); Total Bilirubin 0.9 mg/dl (0.2-1.3); Total Protein 7.8 g/dl (6.3-8.2); eGFR > 60.00
[2024-07-22] MEDS: XANAX 1 MG TUBE ×3 (09:11→23:59)
[2024-07-22] MEDS: FLEXERIL 15 MG TUBE ×3 (09:11→23:57)
[2024-07-22] MEDS: PEPCID 20 MG TUBE ×2 (09:13→21:07)
[2024-07-22] MEDS: NEURONTIN 1200 MG TUBE (09:13)
[2024-07-22] MEDS: NON-FORMULARY ITEM 1 UNIT TUBE ×2 (09:14→09:15)
[2024-07-22] MEDS: PERIACTIN 4 MG TUBE ×4 (09:17→21:07)
--- NOTE | 2024-07-22 09:21 | WOUNDNOTE ---
[facility] RN note: Patient admitted with Pneumonia.
See H&P for complete history.
PMH: ED Past Medical History: Asthma (esophageal atresia), Other (Esophageal atresia, tracheoesophageal fistula, tracheal cleft, GJ tube, aspiration pneumonia) and Other (Crohn's disease, colitis.)
ED Past Surgical History: Cholecystectomy and Other (JG tube, tracheoesophageal fistula repair, laryngeal cleft repair, prior tracheostomy.)
Wound Location and type/assessment: Patient admitted with: mild skin irritation surrounding R abdominal drainage tube, skin darker brown and pink near entrance. Small amt of yellow drainage on drainage sponge.
Appetite: Tube feedings.
Pressure redistribution devices in place: Patient gets oob to commode chair, using Accumax.
Plan: Cleaned skin with soap and water, dried thoroughly then skin prepped skin surrounding tube. Smaller size Exuderm thin(Hydrocolloid) cut to fit around drainage tube applied, change q 3-4 days. Split gauze drainage sponge placed on top, change
as needed for drainage. Pre cut another Exuderm thin dressing for next change. Teaching done with patient, mother at bedside and nurse regarding dressings. Additional supplies in rm.
Will confirm orders with hospitalist and updated nurse. Updated care plan and will follow as needed.
Note to case management of equipment requested for discharge: None.
[2024-07-22] MEDS: ROBITUSSIN 100 MG PO ×2 (09:47→16:51)
--- NOTE | 2024-07-22 10:47 | CON.PUL ---
Consultation
Consultation Request
Date/Time Consultation Requested: 07/22/2024-10:30 AM
Date/Time Consultation Performed: 07/22/2024- 40 5 AM
Requesting Provider: Hospitalist
Performing Provider: Dr. Santana
Reason for Consultation: Sepsis
Medical History
-
Chief Complaint: Shortness of breath
History of Present Illness:
28-year-old male with a history of Crohn's disease status post tracheoesophageal fistula repair, trach with subsequent removal, esophagectomy status post J-tube placement as well as a history of asthma recently diagnosed with pneumonia and developed
watery diarrhea and admitted with sepsis-pulmonary consulted for shortness of breath/sepsis 07/22/2024.. Patient went over multiple recent hospitalizations including [facility] in [place] and recently difficult to control asthma with
recurrent infections and wheezing. He improves for temporary. Then gets worse again with increasing wheezing and mucus production. Currently he is feeling improved. He continues to some chest congestion, continues with some wheezing, dyspnea on
exertion. He denies any chest pain, abdominal pain, tolerating tube feeds and is chronic back pain.
Past Medical History
Past Medical History: None (Crohn's disease on Stelara. Tracheoesophageal fistula repair age 3. Tracheal cleft repair age 3. GJ tube placement. Laryngeal cleft repair 2016. 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 Vocal cord paralysis. GERD.
Asthma. Chronic abdominal and back pain. History of trach. Bilateral hip fra)
Past Surgical History: None (Left rotator cuff repair.)
Social History
Tobacco: Non-smoker
Alcohol: None
Drug: None
Personal: Single
Living: With Family
Occupational Exposures: No known asbestos exposure
Environmental Exposures: No known tuberculosis exposure
Family History
Family History: Reviewed & Not Pertinent
Allergies / Home Medications
Allergies
Allergy/AdvReac Type Severity Reaction Status Date / Time
lactose [Lactose] Allergy Severe Hives Verified 07/21/24 01:52
sodium bicarbonate Allergy Severe Hives Verified 07/21/24 01:52
[Sodium Bicarbonate]
vancomycin Allergy Severe Renal Verified 07/21/24 18:20
failure
cefdinir Allergy Rash Verified 07/21/24 01:52
levofloxacin [From Levaquin] Allergy joint pain Verified 07/21/24 01:52
NSAIDS (Non-Steroidal Allergy Unknown Verified 07/21/24 01:52
Anti-Inflamma
omeprazole Allergy Unknown Verified 07/21/24 01:52
theophylline Allergy Unknown Verified 07/21/24 01:52
Home Medications
�Medication �Instructions �Recorded �Confirmed �Last Taken �Type
cetirizine 1 mg/mL oral solution 10 mg feeding tube HS Allergies 02/27/10 07/21/24 05/07/20 History
(Children's Cetirizine)
famotidine 40 mg/5 mL (8 mg/mL) 20 mg feeding tube BID@0800,2000 03/13/20 07/21/24 05/07/20 History
oral suspension ##0
sennosides 8.8 mg/5 mL oral syrup 8.8 mg feeding tube BIDPRN PRN 03/13/20 07/21/24 05/07/20 History
(senna) constipation ##0
cholecalciferol (vitamin D3) 10 10 mcg feeding tube DAILY 06/29/21 07/21/24 Unknown History
mcg/mL (400 unit/mL) oral drops Supplement ##0
(D-Vi-Samanta)
gabapentin 250 mg/5 mL (5 mL) oral 1,200 mg feeding tube DAILY 06/29/21 07/21/24 Unknown History
solution
lansoprazole 30 mg delayed 30 mg feeding tube BID 06/29/21 07/21/24 Unknown History
release,disintegrating tablet Gastrointestinal issue
(Prevacid SoluTab)
prucalopride 2 mg tablet 2 mg feeding tube DAILY@1200 06/29/21 07/21/24 Unknown History
(Motegrity) Constipation
Ursodiol 50mg/Ml 6 ml feeding tube BID 07/21/24 07/21/24 Unknown History
acetaminophen 160 mg/5 mL (5 mL) 1,000 mg feeding tube BIDPRN PRN 07/21/24 07/21/24 Unknown History
oral solution mild pain
alprazolam 1 mg disintegrating 1 mg feeding tube TID 07/21/24 07/21/24 Unknown History
tablet
amoxicillin 400 mg-potassium 10 ml feeding tube BID 07/21/24 07/21/24 Unknown History
clavulanate 57 mg/5 mL oral
suspension
aprepitant 40 mg capsule 40 mg feeding tube DAILY 07/21/24 07/21/24 Unknown History
budesonide-formoterol HFA 160 2 inh inhalation R BID 07/21/24 07/21/24 Unknown History
mcg-4.5 mcg/actuation aerosol
inhaler (Symbicort)
cyclobenzaprine 10 mg tablet 15 mg feeding tube TID 07/21/24 07/21/24 Unknown History
cyproheptadine 2 mg/5 mL oral syrup 4 mg feeding tube QID@08,12,16,20 07/21/24 07/21/24 Unknown History
dicyclomine 10 mg/5 mL oral 10 mg feeding tube Q6H 07/21/24 07/21/24 Unknown History
solution
doxycycline hyclate 100 mg capsule 100 mg feeding tube BID 07/21/24 07/21/24 Unknown History
gabapentin 250 mg/5 mL (5 mL) oral 1,500 mg feeding tube HS 07/21/24 07/21/24 Unknown History
solution
gabapentin 250 mg/5 mL oral 900 mg feeding tube DAILY@1400 07/21/24 07/21/24 Unknown History
solution
hydromorphone 1 mg/mL oral liquid 8 mg feeding tube Q4H 07/21/24 07/21/24 Unknown History
ipratropium bromide 0.02 % 2.5 ml inhalation R TID 07/21/24 07/21/24 Unknown History
solution for inhalation
melatonin 3 mg tablet 6 mg feeding tube HSPRN PRN sleep 07/21/24 07/21/24 Unknown History
metoclopramide HCl 5 mg/5 mL oral 5 mg feeding tube TIDPRN PRN spasms 07/21/24 07/21/24 Unknown History
solution
naloxegol 12.5 mg tablet (Movantik) 6.25 mg PO DAILY feeding tube 07/21/24 07/21/24 Unknown History
ondansetron HCl 4 mg/5 mL oral 4 mg feeding tube Q6H 07/21/24 07/21/24 Unknown History
solution
scopolamine base 1 mg over 3 days 1 patch transdermal Q3D 07/21/24 07/21/24 07/21/24 History
transdermal patch
sodium chloride 7 % for 1 inh inhalation R TID 07/21/24 07/21/24 Unknown History
nebulization
tizanidine 2 mg tablet 2 mg feeding tube Q8H PRN muscle 07/21/24 07/21/24 Unknown History
spasms
tobramycin 300 mg/5 mL in 0.225 % 5 ml inhalation BID 07/21/24 07/21/24 07/14/24 History
sodium chloride for nebulization
ustekinumab 90 mg/mL subcutaneous 90 mg SC MONTHLY 07/21/24 07/21/24 4 Days Ago History
syringe (Stelara) ~07/17/24
Review of Systems
-
Unable to Obtain full review of systems at this time due to: Other (Per HPI)
Vitals / Labs / Diagnostic Testing
Vital Signs
Temp Pulse Resp BP Pulse Ox
97.8 F 114 16 128/76 100
07/22/24 07:15 07/22/24 07:25 07/22/24 07:25 07/22/24 07:15 07/22/24 07:25
Lab Data
07/22/24 07:36
07/22/24 07:36
Microbiology
07/21/24 05:37 Nasal Swab Influenza Types A & B (WERNER) - Final
Negative for Influenza A & B, NAAT
Negative results must be combined with clinical observations
and patient history.
Nucleic Acid Amplification test (NAAT)performed on the
[employer] software platform.
Diagnostic Testing:
Physical Exam
-
Exam:
Well-nourished and well-developed in no apparent distress
HEENT-atraumatic, normocephalic, former tracheostomy
Neck-supple, no JVD, no bruit
Heart-regular rate and rhythm-no murmurs, rubs or gallops
Chest with coarse breath sounds, rhonchi
Abdomen-soft, nontender, nondistended, no hepatosplenomegaly, gastrostomy tube
Extremities-no cyanosis, clubbing, edema and good peripheral pulses
Integument-intact, no rashes, lesions or ecchymosis
Neurology-alert and oriented, nonfocal motor and sensory exam
Assessment
-
28-year-old male with a history of Crohn's disease status post tracheoesophageal fistula repair, trach with subsequent removal, esophagectomy status post J-tube placement as well as a history of asthma recently diagnosed with pneumonia and developed
watery diarrhea and admitted with sepsis-pulmonary consulted for shortness of breath/sepsis 07/22/2024.
Fevers at home
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
Asthma with acute exacerbation
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
Leukocytosis
Elevated LFTs
Elevated procalcitonin
Conditions present prior to admission:
Crohn's disease on Stelara.
Tracheoesophageal fistula repair age 3.
Tracheal cleft repair age 3.
GJ tube placement.
Laryngeal cleft repair 2016.
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
Vocal cord paralysis.
GERD.
Asthma.
Right upper lobe 5.5 cm bleb/bulla
Chronic abdominal and back pain.
History of trach. Bilateral hip fracture. Left rotator cuff repair.
Plan
Respiratory decompensation, likely due to bronchitis and asthma exacerbation.
Recurrent asthma exacerbations due to inability to completely overcome infections and asthma exacerbations-he also reports is not on inhaled steroids-I do CTs on Symbicort. Right now, however.
Continue supplemental options needed.
Mucolytic's.
Aspiration precautions-has esophagectomy and aspiration would be only oral contents.
Symbicort continues
Tobramycin nebulizers 300 mg twice daily continues.
Dulera nebs. Continue
Add short course of systemic steroids
Cultures reviewed
MRSA screen pending
Blood cultures pending
Influenza negative.
Antibiotics per infectious disease-currently on meropenem.
Follow leukocytosis.
DVT prophylaxis-on Lovenox.
Nutrition-on tube feeds.
Physical therapy.
Outpatient pulmonary follow-up at [facility]
Diagnostic data:
Chest x-ray 02/17/2019-lungs clear
Chest x-ray/11/28-Limited evaluation as a result of prior esophagectomy, cannot rule out patchy right suprahilar pneumonia
Chest x-ray 12/20/2021-NAD, multiple bullae over right medial lung unchanged
Chest x-ray 07/21/2024-NAD
CT chest 12/20/2021-no pulmonary embolism, moderate left lower lobe pneumonia, stable postoperative changes consistent with prior tracheoesophageal fistula repair, 5.5 cm bleb lower medial aspect right upper lobe
CT chest 07/21/2024-no acute abnormalities identified in the chest, stable chronic changes from prior tracheoesophageal fistula repair, large bleb bulla lower medial aspect right upper lobe measuring 6.1 cm
Data Reviewed
-
Radiology: Image personally visualized and interpreted and Report reviewed by me
CT Scan: Image personally visualized and interpreted and Report reviewed by me
Medical Tests (Nuc Med, Echo etc): Report reviewed by me
Labs: Labs reviewed by me
Old Records: Reviewed
Total Time Spent with Patient (in minutes): 75
--- NOTE | 2024-07-22 11:17 | CM ---
CM following re: discharge planning.
Reviewed pt's chart, met with pt.
Pt is a 28 year old male, admitted with primary dx of sepsis. PMH includes: Crohn's disease, s/p TE fistula repair, s/p trach and removal, s/p esophagostomy, s/p J-tube in place, history of asthma/COPD.
Pt reports he lives with parents 2SH, 2 steps to enter, ambulates with a walker, current with [facility]. Pt expressed his desire to return back home at discharge with resumptions of [facility] and family support. pt stated his parents will transport home at
discharge.
[facility] liaison following.
PCP: Rudy Snyder
Pharmacy: [facility]
D/c plan: return back home at discharge with resumptions of [facility] and family support. Parents to transport at discharge.
CM will follow with discharge plan updates as hospitalization progresses
[2024-07-22] MEDS: TYLENOL ORAL SOLUTION 1000 MG TUBE (12:55)
--- NOTE | 2024-07-22 13:21 | W.PN.ID1 ---
Date of Service
Date of Service: July 22, 2024
Today's Communication
Continue short course meropenem for now.
Assessment / Plan
# Fever at home - resolved
# SOB/chest congestion - improved
# Asthma/COPD exacerbation - on steroid
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
Esophagectomy with external pouch, G/J tube August 2022
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
# Allergy to IV Vancomycin, FQ, cefdinir
- blood cx's neg to date
- UA neg
- Outpt C. diff negative
- CT chest and CXR no acute process
- Has been on outpt Augmentin and doxycycline without clinical response
- ?Probable tracheitis with Pseudomonas
- Pseudomonas may have developed drug resistance from prior multiple abx's
- Trial of meropenem 500mg IV q6h x 2 -3 day course
- Appreciate Pulm management of asthma.
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
tracheoesophageal fistula repair, age 3
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
G/J-tube placement
Laryngeal cleft repair 2015
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
Vocal cord paralysis
Crohn's on Stelara
GERD
Asthma
Chronic abdominal pain
Chronic back pain
Prior tracheostomy
Pelvic fracture s/p repair
Bilateral hip fracture s/p repair
Left rotator cuff repair
Chief Complaint
-: Fever
Subjective / Review of Systems
C/o wheezing this am - received nebs treatment
Feels better.
He expresses concerns regarding recurrent wheezing after discharge. He will like an opinion from Pulmonology.
Vital Signs / Physical Exam
Vital Signs
Vital Signs
Temp Pulse Resp BP Pulse Ox
97.8 F 110 16 128/76 100
07/22/24 07:15 07/22/24 11:12 07/22/24 11:12 07/22/24 07:15 07/22/24 07:25
Physical Exam
Constitutional: Comfortable
Eyes: No Conjunctival Hemorrhage and Sclera Anicteric
Pulmonary: Clear; Negative Wheezes, Rales, Rhonchi or Coarse
Extremities: Negative Edema
Neurological: AO x 3
Objective Data
Lab Data
Lab Results
07/22/24 07:36
07/22/24 07:36
Estimated Creat Clear > 125 ml/min 07/22/24 07:36
Lactic Acid Cancelled 07/21/24 22:42
Total Bilirubin 0.9 mg/dl (0.2-1.3) 07/22/24 07:36
AST 95 U/L (17-59) H 07/22/24 07:36
ALT 136 U/L (0-50) H 07/22/24 07:36
Alkaline Phosphatase 336 U/L (38-126) H 07/22/24 07:36
Most recent labs reviewed.
Micro Results:
07/21/24 11:30 Blood Culture - Preliminary
Blood/Venous No Growth in 24 hours- Final report to follow
07/21/24 11:30 Blood Culture - Preliminary
Blood/Venous No Growth in 24 hours- Final report to follow
07/21/24 20:07 MRSA Screen - Pending
Nose
07/21/24 05:37 Influenza Types A & B (WERNER) - Final
Nasal Swab Negative for Influenza A & B, NAAT
Negative results must be combined with clinical observations
and patient history.
Nucleic Acid Amplification test (NAAT)performed on the
[employer] platform.
07/21/[address]: No significant acute abnormality identified in the chest, as described above. Stable chronic changes from prior tracheoesophageal fistula repair.
07/21/24 CXR: no acute process
Care Review
Plan reviewed with: Physician (Dr. Tarsha Abarca)
[2024-07-22] MEDS: NEURONTIN 900 MG TUBE (14:16)
[2024-07-22] MEDS: DECADRON 6 MG IV (14:16)
[2024-07-22] MEDS: LOVENOX 40 MG SC (18:20)
[2024-07-22] MEDS: NEURONTIN 1500 MG TUBE (23:57)
[2024-07-23] VITALS (8 sets, daily range): BP systolic 111–131; BP diastolic 71–91; PULSE 2–100
[2024-07-23] MEDS: DILAUDID 8 MG TUBE ×6 (00:01→23:00)
[2024-07-23] MEDS: STERILE WATER FOR INJECTION 10 ML IV ×5 (00:02→23:56)
[2024-07-23] MEDS: MERREM 500 MG IV ×5 (00:02→23:56)
[2024-07-23] MEDS: TYLENOL ORAL SOLUTION 1000 MG TUBE ×3 (00:04→22:57)
[2024-07-23] MEDS: ROBITUSSIN 100 MG PO ×2 (00:05→09:19)
[2024-07-23] MEDS: ZANAFLEX 2 MG TUBE ×3 (00:05→22:57)
[2024-07-23] MEDS: MELATONIN 6 MG TUBE ×2 (00:05→23:00)
[2024-07-23] MEDS: DECADRON 6 MG IV ×2 (02:19→14:08)
[2024-07-23] MEDS: ZOFRAN 4 MG TUBE ×3 (05:25→23:00)
[2024-07-23] MEDS: BENTYL 10 MG TUBE ×4 (06:05→23:04)
[2024-07-23] MEDS: SYMBICORT 160/4.5 MCG INHALER 2 PUFF INH ×2 (07:15→20:43)
[2024-07-23] MEDS: SODIUM CHLORIDE 3% FOR INHALATION 1 VIAL INH ×4 (07:16→20:43)
[2024-07-23] MEDS: DUONEB 3 ML INH ×4 (07:16→20:43)
[2024-07-23 07:47] LABS: % Basophils 0.1 % (0-2); % Immature Granulocytes 1.6 % (0-0.5); % Lymphocytes 7.9 % (20.5-51.1); % Monocytes 3.1 % (1.7-9.3); % Neutrophils 87.3 % (42.2-75.2); Absolute Immature Granulocytes 0.2 10^3/uL (0-0.05); Absolute Lymphocytes 0.8 10^3/uL (1.2-3.4); Absolute Monocytes 0.3 10^3/uL (0.1-0.6); Absolute Neutrophils 9.1 10^3/uL (1.4-6.5); Hemoglobin 14.4 g/dL (13.0-18.0); Mean Corp Hgb Conc. 32.7 g/dL (33.0-37.0); Mean Corpuscular Hgb 29.2 pg (27.0-31.0); Mean Corpuscular Volume 89.2 fL (80.0-94.0); Mean Platelet Volume 13.8 fL (7.4-10.4); Nucleated Red Blood Cells % 0 % (-); Platelet Count 138 10^3/uL (130-400); Red Blood Cell Count 4.93 10^6/uL (4.70-6.10); Red Cell Dist. Width 12.9 % (11.5-14.5); White Blood Cell Count 10.5 10^3/uL (4.8-10.8)
[2024-07-23 08:04] LABS: ALT (SGPT) 114 U/L (0-50); AST (SGOT) 55 U/L (17-59); Albumin 4.1 g/dl (3.5-5.0); Alkaline Phosphatase 282 U/L (38-126); Blood Urea Nitrogen 12 mg/dl (9-20); Calcium 9.4 mg/dl (8.4-10.2); Carbon Dioxide 28 mmol/L (22-30); Chloride 104 mmol/L (98-107); Estimated Creatinine Clearance > 125 ml/min; Glucose 204 mg/dl (70-99); Potassium 4.7 mmol/L (3.5-5.1); Sodium 139 mmol/L (135-145); Total Bilirubin 0.6 mg/dl (0.2-1.3); Total Protein 7.7 g/dl (6.3-8.2); eGFR > 60.00
--- NOTE | 2024-07-23 08:05 | W.PN.PUL.V3 ---
Today's Communication / Plan
-
Still wheezing-no change in Decadron.
Add Robitussin.
Continue nebulizers.
Continue antibiotics.
Add mucus clearing devices
Assessment
-
28-year-old male with a history of Crohn's disease status post tracheoesophageal fistula repair, trach with subsequent removal, esophagectomy status post J-tube placement as well as a history of asthma recently diagnosed with pneumonia and developed
watery diarrhea and admitted with sepsis-pulmonary consulted for shortness of breath/sepsis 07/22/2024.
Fevers at home
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
Asthma with acute exacerbation
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
Leukocytosis
Elevated LFTs
Elevated procalcitonin
Conditions present prior to admission:
Crohn's disease on Stelara.
Tracheoesophageal fistula repair age 3.
Tracheal cleft repair age 3.
GJ tube placement.
Laryngeal cleft repair 2016.
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
Vocal cord paralysis.
GERD.
Asthma.
Right upper lobe 5.5 cm bleb/bulla
Chronic abdominal and back pain.
History of trach. Bilateral hip fracture. Left rotator cuff repair.
Plan
Respiratory decompensation, likely due to bronchitis and asthma exacerbation.
Recurrent asthma exacerbations due to inability to completely overcome infections and asthma exacerbations-he also reports is not on inhaled steroids-I do CTs on Symbicort. Right now, however.
Respiratory status improved but still tenuous with ongoing wheezing
Continue supplemental Oxygen as needed
Mucolytic's continues
Aspiration precautions-has esophagectomy and aspiration would be only oral contents.
Symbicort continues
Tobramycin nebulizers 300 mg twice daily continues.
Duo nebs continue
Add short course of systemic steroids-Decadron 6 mg IV every 12 hours-no change-mother reports in the past when he was on steroids a lot. They had to slowly reduce it because he had 'cortisol issues'-suspect adrenal insufficiency.
Consider additional Biologics if cannot come off steroids-would need to discuss with GI as patient on biologic- Stelara -IL 12/IL 23, inhibitor for Crohn's disease
Cultures reviewed
MRSA screen negative
Blood cultures -no growth
Influenza negative.
Antibiotics per infectious disease-currently on meropenem.
Follow leukocytosis.
DVT prophylaxis-on Lovenox.
Nutrition-on tube feeds.
Physical therapy..
.
Dr. Santana reviewed with mother at the bedside in detail. 07/23/24
Outpatient pulmonary follow-up at [facility]-would also like to follow-up locally
Diagnostic data:
Chest x-ray 02/17/2019-lungs clear
Chest x-ray/11/28-Limited evaluation as a result of prior esophagectomy, cannot rule out patchy right suprahilar pneumonia
Chest x-ray 12/20/2021-NAD, multiple bullae over right medial lung unchanged
Chest x-ray 07/21/2024-NAD
CT chest 12/20/2021-no pulmonary embolism, moderate left lower lobe pneumonia, stable postoperative changes consistent with prior tracheoesophageal fistula repair, 5.5 cm bleb lower medial aspect right upper lobe
CT chest 07/21/2024-no acute abnormalities identified in the chest, stable chronic changes from prior tracheoesophageal fistula repair, large bleb bulla lower medial aspect right upper lobe measuring 6.1 cm
Subjective Data
-
Date of Service:
Date of Service: July 23, 2024
Chief Complaint: Pulmonary Follow Up and Dyspnea Follow Up
Subjective:
Feels a little better, less shortness of breath, less wheezing, nonproductive cough, no chest pain or abdominal pain
Review of Systems
General: Other (per HPI)
Objective Data
Data Reviewed
Vital Signs / I&O:
Vital Signs
Temp Pulse Resp BP Pulse Ox
97.6 F 84 16 125/78 99
07/23/24 07:05 07/23/24 07:20 07/23/24 07:20 07/23/24 07:05 07/23/24 07:20
Intake and Output
07/22/24 07/23/24 07/24/24
06:59 06:59 06:59
Intake Total 200 / 200 4580 / 4580
Output Total 2039 / 2039 1875 / 1875
Balance -1840 / -1840 2705 / 2705
SaO2: 99
Nasal Cannula flow liters per minute: 2
Physical Exam
General: Respiratory Distress (n) and Comfortable
HEENT: Normocephalic, Anicteric and Moist Mucous Membranes
Cardiovascular: Regular Rhythm
Respiratory: Wheeze ( expiratory), Crackles ( rare basilar), Rhonchi, Non-Labored Respirations, Accessory Resp Muscle Use (n) and Stridor
GI: Soft, Non Distended and Non Tender
Neurology: Awake and No Motor Deficits
Skin: Warm, Good Color, Cyanosis (n), Jaundice (n) and Rash (n)
Labs/Micro/Reports
Lab Data
07/23/24 06:54
Microbiology
07/21/24 20:07 Nose MRSA Screen - Final
No Methicillin Resistant Staphylococcus aureus isolated.
07/21/24 11:30 Blood/Venous Blood Culture - Preliminary
No Growth in 24 hours- Final report to follow
07/21/24 11:30 Blood/Venous Blood Culture - Preliminary
No Growth in 24 hours- Final report to follow
07/21/24 05:37 Nasal Swab Influenza Types A & B (WERNER) - Final
Negative for Influenza A & B, NAAT
Negative results must be combined with clinical observations
and patient history.
Nucleic Acid Amplification test (NAAT)performed on the
[employer] platform.
[2024-07-23] MEDS: FLEXERIL 15 MG TUBE ×3 (09:10→23:00)
[2024-07-23] MEDS: XANAX 1 MG TUBE ×3 (09:10→23:01)
[2024-07-23] MEDS: NON-FORMULARY ITEM 2.5 UNIT TUBE (09:11)
[2024-07-23] MEDS: CALCIUM CARBONATE ORAL SUSP 500 MG PO ×2 (09:11→21:30)
[2024-07-23] MEDS: NEURONTIN 1200 MG TUBE (09:11)
[2024-07-23] MEDS: NON-FORMULARY ITEM 1 UNIT TUBE ×2 (09:13)
[2024-07-23] MEDS: PEPCID 20 MG TUBE ×2 (09:13→21:29)
[2024-07-23] MEDS: PERIACTIN 4 MG TUBE ×4 (09:13→21:29)
--- NOTE | 2024-07-23 11:02 | W.PN.ID1 ---
Date of Service
Date of Service: July 23, 2024
Today's Communication
Continue meropenem for now.
Assessment / Plan
# Fever at home - resolved
# SOB/chest congestion - improved
# Asthma/COPD exacerbation - on steroid
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
Esophagectomy with external pouch, G/J tube August 2022
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
# Allergy to IV Vancomycin, FQ, cefdinir
- blood cx's neg to date
- UA neg
- Outpt C. diff negative
- CT chest and CXR no acute process
- Was on outpt Augmentin and doxycycline without clinical response
- ?Probable tracheitis with Pseudomonas
- Pseudomonas may have developed drug resistance from prior multiple abx's
- Continue meropenem 500mg IV q6h (d3)
- Appreciate Pulm management of asthma/COPD exacerbation.
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
tracheoesophageal fistula repair, age 3
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
G/J-tube placement
Laryngeal cleft repair 2015
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
Vocal cord paralysis
Crohn's on Stelara
GERD
Asthma
Chronic abdominal pain
Chronic back pain
Prior tracheostomy
Pelvic fracture s/p repair
Bilateral hip fracture s/p repair
Left rotator cuff repair
Chief Complaint
-: Other (Wheezing)
Subjective / Review of Systems
Concern about the intermittent wheezing.
Vital Signs / Physical Exam
Vital Signs
Vital Signs
Temp Pulse Resp BP Pulse Ox
97.6 F 84 16 125/78 99
07/23/24 07:05 07/23/24 07:20 07/23/24 07:20 07/23/24 07:05 07/23/24 08:05
Physical Exam
Constitutional: Non-toxic
Eyes: Negative No Conjunctival Hemorrhage or Sclera Anicteric
Pulmonary: Clear; Negative Wheezes
Neurological: AO x 3
Objective Data
Lab Data
Lab Results
07/23/24 06:54
07/23/24 06:54
Estimated Creat Clear > 125 ml/min 07/23/24 06:54
Lactic Acid Cancelled 07/21/24 22:42
Total Bilirubin 0.6 mg/dl (0.2-1.3) 07/23/24 06:54
AST 55 U/L (17-59) 07/23/24 06:54
ALT 114 U/L (0-50) H 07/23/24 06:54
Alkaline Phosphatase 282 U/L (38-126) H 07/23/24 06:54
Most recent labs reviewed.
Micro Results:
07/21/24 20:07 MRSA Screen - Final
Nose No Methicillin Resistant Staphylococcus aureus isolated.
07/21/24 11:30 Blood Culture - Preliminary
Blood/Venous No Growth in 24 hours- Final report to follow
07/21/24 11:30 Blood Culture - Preliminary
Blood/Venous No Growth in 24 hours- Final report to follow
07/21/24 05:37 Influenza Types A & B (WERNER) - Final
Nasal Swab Negative for Influenza A & B, NAAT
Negative results must be combined with clinical observations
and patient history.
Nucleic Acid Amplification test (NAAT)performed on the
[employer] platform.
07/21/[address]: No significant acute abnormality identified in the chest, as described above. Stable chronic changes from prior tracheoesophageal fistula repair.
07/21/24 CXR: no acute process
--- NOTE | 2024-07-23 11:02 | W.PN.HOSP.TC ---
Today's Communication/Plan
-
see A/P
Assessment / Plan
Assessment / Plan
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
He was recently diagnosed with pneumonia and was started with amoxicillin and doxycycline, which he continues to take. He was also given a short steroid course which he has completed.
He states that he developed watery diarrhea since taking amoxicillin and doxycycline; stool now slightly more formed.
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
Pt states that he is strict NPO, and he gets his nutrition through tube feed.
A/P:
# Possible sepsis POA, source possible tracheitis with Pseudomonas
COVID/Flu negative
CT chest: No significant acute abnormality identified in the chest, Stable chronic changes from prior tracheoesophageal fistula repair.
blood cultures x2 negative
Procal 0.77
UA clean
No need to check stool now as pt has recent (within 1 week) C diff test which was negative
ID on board
Changed OPERATOR amoxicillin and doxycycline to Merrem to cover for possible tracheitis with Pseudomonas. Cont short course.
Pulm on board per pt/family request. Started Decadron 6 mg Q12H
# Elevated isolated ALT, possibly reactive
Cont to trend
Other medical conditions:
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
# tracheoesophageal fistula repair, age 3
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
# G/J-tube placement, tube feed per pt's request
# Laryngeal cleft repair 2015
# Pseudomonas colonization in lungs on SULLY 2 weeks on/2 weeks off since 2022
# Vocal cord paralysis
# Crohn's on Stelara
# GERD
# Asthma
# Chronic abdominal pain
# Chronic back pain
# Prior tracheostomy
# Pelvic fracture s/p repair
# Bilateral hip fracture s/p repair
# Left rotator cuff repair
DVT ppx: Lovenox SQ
FC
DW ID
Anticipated Discharge: 24 - 48 hours
Subjective/Interval History
-
Date of Service: July 23, 2024
Objective Data
-
Labs:
Laboratory Results
07/23/24
06:54
WBC 10.5
Hgb 14.4
Hct 44.0
Plt Count 138
Sodium 139
Potassium 4.7
Chloride 104
Carbon Dioxide 28
BUN 12
Creatinine 0.4 L
Glucose 204 H
Calcium 9.4
Total Bilirubin 0.6
AST 55
ALT 114 H
Alkaline Phosphatase 282 H
Vital Signs:
Vital Signs
Temp Pulse Resp BP Pulse Ox
36.4 C 84 16 125/78 99
07/23/24 07:05 07/23/24 07:20 07/23/24 07:20 07/23/24 07:05 07/23/24 08:05
I&O
07/22/24 07/23/24 07/24/24
06:59 06:59 06:59
Intake Total 200 / 200 4580 / 4580
Output Total 2039 / 2039 187 / 187
Balance -1840 / -0 2704 / 2704
[2024-07-23] MEDS: BENTYL TUBE ×2 (12:20→21:05)
[2024-07-23] MEDS: ZOFRAN TUBE ×2 (12:20→21:06)
[2024-07-23] MEDS: NEURONTIN 900 MG TUBE (14:08)
--- NOTE | 2024-07-23 14:31 | VNURNOTE ---
Met with patient at bedside. He is agreeable to resume [facility] services. He is aware [facility] will contact him within a few days after DC. Resumption referral placed in [facility].
[2024-07-23] MEDS: LOVENOX 40 MG SC (17:16)
[2024-07-23] MEDS: ROBITUSSIN 200 MG PO ×2 (17:16→22:57)
--- NOTE | 2024-07-23 19:21 | PTCARENOTE ---
Per infection control, stool studies should be cancelled as patient tested negative for c.diff this past Saturday at [place]. was notified yesterday of this request. Stool studies remain outstanding.
[2024-07-23] MEDS: DILAUDID TUBE ×2 (20:50→22:59)
[2024-07-23] MEDS: CALCIUM CARBONATE ORAL SUSP PO (20:50)
[2024-07-23] MEDS: PERIACTIN TUBE (20:51)
[2024-07-23] MEDS: PEPCID TUBE (20:51)
[2024-07-23] MEDS: NEURONTIN TUBE (20:59)
[2024-07-23] MEDS: FLEXERIL TUBE (21:00)
[2024-07-23] MEDS: ZYRTEC TUBE (21:00)
[2024-07-23] MEDS: ROBITUSSIN PO (21:00)
[2024-07-23] MEDS: XANAX TUBE (21:00)
--- NOTE | 2024-07-23 21:15 | PTCARENOTE ---
Addendum entered by Tere Worthington RN 07/24/24 03:09:
Patient is sleeping at this time.
Original Note:
Patient refused 2200 meds after this RN opened and crushed. this RN wasted all the meds wasted at [facility] there is multiple meds look alike/ unable to identify as all the meds crushed.
[2024-07-23] MEDS: ZYRTEC 10 MG TUBE ×2 (23:01)
[2024-07-23] MEDS: NEURONTIN 1500 MG TUBE (23:31)
[2024-07-24] MEDS: DECADRON 6 MG IV ×2 (01:12→13:06)
[2024-07-24 03:31] VITALS: PULSE 2
[2024-07-24] MEDS: DILAUDID 8 MG TUBE ×6 (03:48→23:58)
[2024-07-24] MEDS: STERILE WATER FOR INJECTION 10 ML IV ×4 (05:34→23:04)
[2024-07-24] MEDS: MERREM 500 MG IV ×4 (05:34→23:03)
[2024-07-24 07:15] VITALS: BP 134/77
[2024-07-24] MEDS: DUONEB 3 ML INH ×4 (07:16→20:21)
[2024-07-24] MEDS: SYMBICORT 160/4.5 MCG INHALER 2 PUFF INH ×2 (07:16→20:21)
[2024-07-24] MEDS: SODIUM CHLORIDE 3% FOR INHALATION 1 VIAL INH (07:17)
[2024-07-24 07:29] LABS: % Basophils 0.1 % (0-2); % Immature Granulocytes 0.5 % (0-0.5); % Lymphocytes 8.1 % (20.5-51.1); % Monocytes 3.2 % (1.7-9.3); % Neutrophils 88.1 % (42.2-75.2); Absolute Immature Granulocytes 0.1 10^3/uL (0-0.05); Absolute Monocytes 0.4 10^3/uL (0.1-0.6); Absolute Neutrophils 10.5 10^3/uL (1.4-6.5); Hematocrit 41.7 % (39.0-52.0); Hemoglobin 13.8 g/dL (13.0-18.0); Mean Corp Hgb Conc. 33.1 g/dL (33.0-37.0); Mean Corpuscular Hgb 29.4 pg (27.0-31.0); Mean Corpuscular Volume 88.7 fL (80.0-94.0); Mean Platelet Volume 13.8 fL (7.4-10.4); Nucleated Red Blood Cells % 0 % (-); Platelet Count 145 10^3/uL (130-400); Red Cell Dist. Width 12.9 % (11.5-14.5); White Blood Cell Count 11.9 10^3/uL (4.8-10.8)
[2024-07-24 07:40] LABS: ALT (SGPT) 78 U/L (0-50); AST (SGOT) 29 U/L (17-59); Albumin 4.2 g/dl (3.5-5.0); Alkaline Phosphatase 254 U/L (38-126); Blood Urea Nitrogen 13 mg/dl (9-20); Calcium 9.4 mg/dl (8.4-10.2); Carbon Dioxide 29 mmol/L (22-30); Chloride 104 mmol/L (98-107); Estimated Creatinine Clearance > 125 ml/min; Glucose 248 mg/dl (70-99); Potassium 4.8 mmol/L (3.5-5.1); Sodium 137 mmol/L (135-145); Total Bilirubin 0.4 mg/dl (0.2-1.3); Total Protein 7.2 g/dl (6.3-8.2); eGFR > 60.00
--- NOTE | 2024-07-24 08:16 | W.PN.PUL.V3 ---
Today's Communication / Plan
-
Wean oxygen
Continue nebulizers
No change in Decadron
Mucolytic's
Patient requesting coffolator, vest therapy and deep suctioning
Antibiotics
Reviewed with mother
Assessment
-
28-year-old male with a history of Crohn's disease status post tracheoesophageal fistula repair, trach with subsequent removal, esophagectomy status post J-tube placement as well as a history of asthma recently diagnosed with pneumonia and developed
watery diarrhea and admitted with sepsis-pulmonary consulted for shortness of breath/sepsis 07/22/2024.
Fevers at home
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
Asthma with acute exacerbation
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
Leukocytosis
Elevated LFTs
Elevated procalcitonin
Conditions present prior to admission:
Crohn's disease on Stelara.
Tracheoesophageal fistula repair age 3.
Tracheal cleft repair age 3.
GJ tube placement.
Laryngeal cleft repair 2016.
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
Vocal cord paralysis.
GERD.
Asthma.
Right upper lobe 5.5 cm bleb/bulla
Chronic abdominal and back pain.
History of trach. Bilateral hip fracture. Left rotator cuff repair.
Plan
Respiratory decompensation, likely due to bronchitis and asthma exacerbation.
Recurrent asthma exacerbations due to inability to completely overcome infections and asthma exacerbations-he also reports is not on inhaled steroids-I do CTs on Symbicort. Right now, however.
Respiratory status improved but still tenuous with ongoing wheezing-somewhat improved
Continue supplemental oxygen as needed-currently on room air
Mucolytic's continues
Aspiration precautions-has esophagectomy and aspiration would be only oral contents.
Symbicort continues
Tobramycin nebulizers 300 mg twice daily continues.
Duonebs continue
Continue-Decadron 6 mg IV every 12 hours-no change-mother reports in the past when he was on steroids a lot-they had to slowly reduce it because he had 'cortisol issues'-suspect adrenal insufficiency.
Consider additional Biologics if cannot come off steroids-would need to discuss with GI as patient on biologic- Stelara -IL 12/IL 23, inhibitor for Crohn's disease
Patient asking for coffolator, vest therapy and deep suctioning
Cultures reviewed
MRSA screen negative
Blood cultures -no growth
Influenza negative.
Antibiotics per infectious disease-currently on meropenem.
Follow leukocytosis.
Dr. Santana discussed briefly the potential need for a port placement as patient reports 'running out of veins' and likely to have repetitive hospitalizations
DVT prophylaxis-on Lovenox.
Nutrition-on tube feeds.
Physical therapy..
Dr. Santana reviewed with mother at the bedside in detail 07/23/24 as well as 07/24/2024
Outpatient pulmonary follow-up at [facility]-would also like to follow-up locally
Diagnostic data:
Chest x-ray 02/17/2019-lungs clear
Chest x-ray/11/28-Limited evaluation as a result of prior esophagectomy, cannot rule out patchy right suprahilar pneumonia
Chest x-ray 12/20/2021-NAD, multiple bullae over right medial lung unchanged
Chest x-ray 07/21/2024-NAD
CT chest 12/20/2021-no pulmonary embolism, moderate left lower lobe pneumonia, stable postoperative changes consistent with prior tracheoesophageal fistula repair, 5.5 cm bleb lower medial aspect right upper lobe
CT chest 07/21/2024-no acute abnormalities identified in the chest, stable chronic changes from prior tracheoesophageal fistula repair, large bleb bulla lower medial aspect right upper lobe measuring 6.1 cm
Subjective Data
-
Date of Service:
Date of Service: July 24, 2024
Chief Complaint: Pulmonary Follow Up and Dyspnea Follow Up
Subjective:
Feels about the same, still has wheezing, chest congestion, productive cough is minimal, no chest pain or abdominal pain
Review of Systems
General: Other ( Per HPI)
Objective Data
Data Reviewed
Vital Signs / I&O:
Vital Signs
Temp Pulse Resp BP Pulse Ox
97.7 F 88 16 121/82 99
07/23/24 23:22 07/24/24 07:18 07/24/24 07:18 07/23/24 23:22 07/24/24 07:18
Intake and Output
07/23/24 07/24/24 07/25/24
06:59 06:59 06:59
Intake Total 4100 / 4100 4380 / 4380
Output Total 1875 / 1875 1185 / 1185
Balance 2225 / 2225 3195 / 3195
SaO2: 99
Nasal Cannula flow liters per minute: 6
Physical Exam
General: Respiratory Distress (n) and Comfortable
HEENT: Normocephalic, Anicteric and Moist Mucous Membranes
Cardiovascular: Regular Rhythm
Respiratory: Wheeze ( expiratory), Crackles ( rare basilar), Rhonchi, Non-Labored Respirations, Accessory Resp Muscle Use (n) and Stridor
GI: Soft, Non Distended and Non Tender
Neurology: Awake, Alert and No Motor Deficits
Skin: Warm, Good Color, Cyanosis (n), Jaundice (n) and Rash (n)
Labs/Micro/Reports
Lab Data
07/24/24 06:37
07/24/24 06:37
Microbiology
07/21/24 11:30 Blood/Venous Blood Culture - Preliminary
No Growth in 48 hours- Final report to follow
07/21/24 11:30 Blood/Venous Blood Culture - Preliminary
No Growth in 48 hours- Final report to follow
07/21/24 20:07 Nose MRSA Screen - Final
No Methicillin Resistant Staphylococcus aureus isolated.
07/21/24 05:37 Nasal Swab Influenza Types A & B (WERNER) - Final
Negative for Influenza A & B, NAAT
Negative results must be combined with clinical observations
and patient history.
Nucleic Acid Amplification test (NAAT)performed on the
[employer] platform.
[2024-07-24] MEDS: CALCIUM CARBONATE ORAL SUSP 500 MG PO ×2 (08:47→20:23)
[2024-07-24] MEDS: NEURONTIN 1200 MG TUBE (08:47)
[2024-07-24] MEDS: ROBITUSSIN 200 MG PO ×4 (08:47→22:58)
[2024-07-24] MEDS: XANAX 1 MG TUBE ×3 (08:48→23:00)
[2024-07-24] MEDS: PEPCID 20 MG TUBE ×2 (08:48→20:23)
[2024-07-24] MEDS: FLEXERIL 15 MG TUBE ×3 (09:03→22:54)
[2024-07-24] MEDS: ZOFRAN 4 MG TUBE ×3 (09:03→23:01)
[2024-07-24] MEDS: ZANAFLEX 2 MG TUBE (09:04)
[2024-07-24] MEDS: TYLENOL ORAL SOLUTION 1000 MG TUBE ×3 (09:04→23:17)
[2024-07-24] MEDS: NON-FORMULARY ITEM 1 UNIT TUBE ×3 (09:06→09:17)
[2024-07-24] MEDS: BENTYL 10 MG TUBE ×3 (09:11→23:03)
[2024-07-24] MEDS: PERIACTIN 4 MG TUBE ×4 (09:12→20:23)
--- NOTE | 2024-07-24 12:42 | W.PN.ID1 ---
Date of Service
Date of Service: July 24, 2024
Today's Communication
Continue meropenem.
Assessment / Plan
# Probable tracheitis
# Fever at home - resolved
# SOB/chest congestion - improved
# Asthma/COPD exacerbation - on steroid
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
Esophagectomy with external pouch, G/J tube August 2022
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
# Allergy to IV Vancomycin, FQ, cefdinir
- blood cx's neg to date
- UA neg
- Outpt C. diff negative
- CT chest and CXR no acute process
-MRSA screen negative
- Was on outpt Augmentin and doxycycline without clinical response
- ?Probable tracheitis with Pseudomonas
- Continue meropenem 500mg IV q6h (d4)
- Appreciate Pulm management of asthma/COPD exacerbation.
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
tracheoesophageal fistula repair, age 3
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
G/J-tube placement
Laryngeal cleft repair 2015
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
Vocal cord paralysis
Crohn's on Stelara
GERD
Asthma
Chronic abdominal pain
Chronic back pain
Prior tracheostomy
Pelvic fracture s/p repair
Bilateral hip fracture s/p repair
Left rotator cuff repair
Chief Complaint
-: Other (Wheezing)
Subjective / Review of Systems
No new complaints.
Vital Signs / Physical Exam
Vital Signs
Vital Signs
Temp Pulse Resp BP Pulse Ox
97.5 F 90 18 134/77 99
07/24/24 07:15 07/24/24 11:43 07/24/24 11:43 07/24/24 07:15 07/24/24 08:16
Physical Exam
Constitutional: No Acute Distress
Cardiovascular: Regular Rate and S1/S2
Pulmonary: Coarse; Negative Wheezes
Gastrointestinal: Soft and Non Tender
Extremities: Negative Edema
Neurological: AO x 3
Objective Data
Lab Data
Lab Results
07/24/24 06:37
07/24/24 06:37
Estimated Creat Clear > 125 ml/min 07/24/24 06:37
Lactic Acid Cancelled 07/21/24 22:42
Total Bilirubin 0.4 mg/dl (0.2-1.3) 07/24/24 06:37
AST 29 U/L (17-59) 07/24/24 06:37
ALT 78 U/L (0-50) H 07/24/24 06:37
Alkaline Phosphatase 254 U/L (38-126) H 07/24/24 06:37
Most recent labs reviewed.
Micro Results:
07/21/24 11:30 Blood Culture - Preliminary
Blood/Venous No Growth in 72 hours- Final report to follow
07/21/24 11:30 Blood Culture - Preliminary
Blood/Venous No Growth in 72 hours- Final report to follow
07/21/24 20:07 MRSA Screen - Final
Nose No Methicillin Resistant Staphylococcus aureus isolated.
07/21/24 05:37 Influenza Types A & B (WERNER) - Final
Nasal Swab Negative for Influenza A & B, NAAT
Negative results must be combined with clinical observations
and patient history.
Nucleic Acid Amplification test (NAAT)performed on the
[employer] platform.
07/21/[address]: No significant acute abnormality identified in the chest, as described above. Stable chronic changes from prior tracheoesophageal fistula repair.
07/21/24 CXR: no acute process
[2024-07-24] MEDS: TRANSDERM-SCOP 1 PATCH TRANSDERM (13:01)
[2024-07-24] MEDS: NEURONTIN 900 MG TUBE (13:05)
[2024-07-24 13:27] LABS: Glucose - Point of Care 159 mg/dl (70-99)
[2024-07-24] MEDS: NOVOLOG FLEXPEN-MODERATE RESISTANCE 1 UNITS SC (13:58)
--- NOTE | 2024-07-24 14:05 | W.PN.HOSP.TC ---
Today's Communication/Plan
-
cont abx
will defer further decisions re: abx, deep suction to ID/pulm
Assessment / Plan
Assessment / Plan
pt is a 28 year old male
Possible sepsis POA, source possible tracheitis with Pseudomonas--COVID/Flu negative--blood cultures x2 negative --apprec ID/pulm--pt with questions about abx--will defer to ID--currently on meropenem--cont decadron 6mg IV Q12H
Elevated isolated ALT, possibly reactive--Cont to trend
Other medical conditions:
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
tracheoesophageal fistula repair, age 3
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
G/J-tube placement, tube feed per pt's request
Laryngeal cleft repair 2015
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
Vocal cord paralysis
Crohn's on Stelara
GERD
Asthma
Chronic abdominal pain
Chronic back pain
Prior tracheostomy
Pelvic fracture s/p repair
Bilateral hip fracture s/p repair
Left rotator cuff repair
DVT proph-- Lovenox SQ
code status --full code
Anticipated Discharge: 24 - 48 hours
Subjective/Interval History
-
Date of Service: July 24, 2024
pt without c/o
questions about meds, deep suctioning, etc
Objective Data
-
Labs:
Laboratory Results
07/24/24
06:37
WBC 11.9 H
Hgb 13.8
Hct 41.7
Plt Count 145
Sodium 137
Potassium 4.8
Chloride 104
Carbon Dioxide 29
BUN 13
Creatinine 0.4 L
Glucose 248 H
Calcium 9.4
Total Bilirubin 0.4
AST 29
ALT 78 H
Alkaline Phosphatase 254 H
Vital Signs:
max temp for 24 hours
07/23/24
15:10
Temp 98.3 F
Vital Signs
Temp Pulse Resp BP Pulse Ox
97.5 F 90 18 134/77 99
07/24/24 07:15 07/24/24 11:43 07/24/24 11:43 07/24/24 07:15 07/24/24 08:16
I&O
07/23/24 07/24/24 07/25/24
06:59 06:59 06:59
Intake Total 4100 / 4100 4380 / 4380
Output Total 1875 / 1875 1185 / 1185 500 / 500
Balance 2225 / 2225 3195 / 3195 -500 / -500
Review of Systems
-
All other systems: Reviewed and negative
Physical Exam
-
General: Appears Chronically Ill
HEENT: Normocephalic, Atraumatic and Other ('bag to catch secretions' on right side of neck...); Negative Oxygen
Respiratory: Rhonchi (scattered rhonchi)
Cardiac: Regular Rhythm and S1/S2; Negative Murmur
GI: Soft, Nontender, Nondistended, Normal Bowel Sounds and Peg Tube (J G tube)
Musculoskeletal: No Clubbing, No Cyanosis and No Edema
Neuro: Awake and Alert
--- NOTE | 2024-07-24 14:53 | CM ---
CM following re: discharge planning.
Reviewed pt's chart, met with pt.
Pt lives with parents 2SH, 2 steps to enter, ambulates with a walker, current with [facility]. Pt expressed his desire to return back home at discharge with resumptions of [facility] and family support. Pt stated his parents will transport home at discharge.
[facility] liaison following.
D/c plan: return back home at discharge with resumptions of [facility] and family support. Parents to transport at discharge.
CM will follow with discharge plan updates as hospitalization progresses
[2024-07-24 15:12] VITALS: BP 135/82
[2024-07-24 15:14] VITALS: BP 123/88; PULSE 101; O2SAT 99
[2024-07-24] MEDS: ZANAFLEX 6 MG TUBE (16:44)
[2024-07-24] MEDS: LOVENOX 40 MG SC (17:02)
[2024-07-24 17:45] LABS: Glucose - Point of Care 233 mg/dl (70-99)
[2024-07-24] MEDS: NOVOLOG FLEXPEN-MODERATE RESISTANCE 3 UNITS SC (18:07)
[2024-07-24] MEDS: NEURONTIN 1500 MG TUBE (22:55)
[2024-07-24] MEDS: ZYRTEC 10 MG TUBE (22:58)
[2024-07-24] MEDS: FLUSH (NSS) 2 FLUSH IV (23:04)
[2024-07-24] MEDS: MELATONIN 6 MG TUBE (23:16)
[2024-07-24 23:40] VITALS: BP 128/80
[2024-07-24 23:52] LABS: Glucose - Point of Care 141 mg/dl (70-99)
[2024-07-24] MEDS: NOVOLOG FLEXPEN-MODERATE RESISTANCE SC (23:59)
[2024-07-25] MEDS: ZANAFLEX 6 MG TUBE ×3 (00:44→23:10)
[2024-07-25] MEDS: FLUSH (NSS) 2 FLUSH IV (00:59)
[2024-07-25] MEDS: DECADRON 6 MG IV (01:00)
[2024-07-25 01:02] VITALS: PULSE 2; PULSE 93
[2024-07-25] MEDS: DILAUDID 8 MG TUBE ×6 (04:04→23:22)
--- NOTE | 2024-07-25 05:43 | PTCARENOTE ---
Patient's tube feed rate needs clarified. Family manages it at 150mls/hr. Advised covering provider.
[2024-07-25] MEDS: STERILE WATER FOR INJECTION 10 ML IV ×4 (06:06→23:08)
[2024-07-25] MEDS: MERREM 500 MG IV ×4 (06:06→23:08)
[2024-07-25 06:23] LABS: Glucose - Point of Care 203 mg/dl (70-99)
[2024-07-25] MEDS: NOVOLOG FLEXPEN-MODERATE RESISTANCE 3 UNITS SC (06:24)
[2024-07-25 07:12] LABS: Hematocrit 41.5 % (39.0-52.0); Hemoglobin 13.6 g/dL (13.0-18.0); Mean Corp Hgb Conc. 32.8 g/dL (33.0-37.0); Mean Corpuscular Hgb 29.4 pg (27.0-31.0); Mean Corpuscular Volume 89.6 fL (80.0-94.0); Mean Platelet Volume 13.4 fL (7.4-10.4); Platelet Count 143 10^3/uL (130-400); Red Blood Cell Count 4.63 10^6/uL (4.70-6.10); White Blood Cell Count 11.2 10^3/uL (4.8-10.8)
[2024-07-25 07:19] VITALS: BP 112/71
[2024-07-25] MEDS: DUONEB 3 ML INH ×4 (07:29→22:39)
[2024-07-25] MEDS: SYMBICORT 160/4.5 MCG INHALER 2 PUFF INH ×2 (07:30→22:39)
[2024-07-25 07:43] LABS: ALT (SGPT) 63 U/L (0-50); AST (SGOT) 28 U/L (17-59); Albumin 4.3 g/dl (3.5-5.0); Alkaline Phosphatase 228 U/L (38-126); Blood Urea Nitrogen 13 mg/dl (9-20); Calcium 9.4 mg/dl (8.4-10.2); Carbon Dioxide 27 mmol/L (22-30); Chloride 103 mmol/L (98-107); Estimated Creatinine Clearance > 125 ml/min; Glucose 226 mg/dl (70-99); Magnesium 2.3 mg/dl (1.6-2.3); Potassium 4.6 mmol/L (3.5-5.1); Sodium 139 mmol/L (135-145); Total Bilirubin 0.5 mg/dl (0.2-1.3); Total Protein 7.3 g/dl (6.3-8.2); eGFR > 60.00
[2024-07-25] MEDS: ROBITUSSIN 200 MG PO ×2 (08:16→12:22)
[2024-07-25] MEDS: NEURONTIN 1200 MG TUBE (08:16)
[2024-07-25] MEDS: CALCIUM CARBONATE ORAL SUSP 500 MG PO ×2 (08:16→20:13)
[2024-07-25] MEDS: FLEXERIL 15 MG TUBE ×3 (08:17→22:55)
[2024-07-25] MEDS: PEPCID 20 MG TUBE ×2 (08:17→20:14)
[2024-07-25] MEDS: XANAX 1 MG TUBE ×3 (08:17→23:05)
[2024-07-25] MEDS: NON-FORMULARY ITEM 1 UNIT TUBE ×3 (08:18→08:24)
[2024-07-25] MEDS: TYLENOL ORAL SOLUTION 1000 MG TUBE ×2 (08:23→23:05)
[2024-07-25] MEDS: BENTYL 10 MG TUBE ×3 (08:29→23:05)
[2024-07-25] MEDS: PERIACTIN 4 MG TUBE ×4 (08:29→20:13)
[2024-07-25] MEDS: ZOFRAN 4 MG TUBE ×3 (08:29→22:56)
--- NOTE | 2024-07-25 12:00 | W.PN.HOSP.TC ---
Today's Communication/Plan
-
adjust meds
Assessment / Plan
Assessment / Plan
pt is a 28 year old male
Possible sepsis POA, source possible tracheitis with Pseudomonas--COVID/Flu negative--blood cultures x2 negative --apprec ID/pulm--pt with questions about abx--will defer to ID--currently on meropenem--decrease decadron to 4mg IV Q12H
Elevated isolated ALT, possibly reactive--Cont to trend
Other medical conditions:
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
tracheoesophageal fistula repair, age 3
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
G/J-tube placement, tube feed per pt's request
Laryngeal cleft repair 2015
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
Vocal cord paralysis
Crohn's on Stelara
GERD
Asthma
Chronic abdominal pain
Chronic back pain
Prior tracheostomy
Pelvic fracture s/p repair
Bilateral hip fracture s/p repair
Left rotator cuff repair
DVT proph-- Lovenox SQ
code status --full code
hopeful d/c home in next 24-48H
Anticipated Discharge: 24 - 48 hours
Subjective/Interval History
-
Date of Service: July 25, 2024
pt asking about changing med dose of prevacid
Objective Data
-
Labs:
Laboratory Results
07/25/24
06:49
WBC 11.2 H
Hgb 13.6
Hct 41.5
Plt Count 143
Sodium 139
Potassium 4.6
Chloride 103
Carbon Dioxide 27
BUN 13
Creatinine 0.4 L
Glucose 226 H
Calcium 9.4
Total Bilirubin 0.5
AST 28
ALT 63 H
Alkaline Phosphatase 228 H
Vital Signs:
max temp for 24 hours
07/25/24
07:19
Temp 98.2 F
Vital Signs
Temp Pulse Resp BP Pulse Ox
98.2 F 88 16 112/71 99
07/25/24 07:19 07/25/24 11:21 07/25/24 11:21 07/25/24 07:19 07/25/24 09:57
I&O
07/24/24 07/25/24 07/26/24
06:59 06:59 06:59
Intake Total 4380 / 4380 3500 / 3500
Output Total 1185 / 1185 2250 / 2250
Balance 3195 / 3195 1250 / 1250
Review of Systems
-
All other systems: Reviewed and negative
Physical Exam
-
General: Well Developed, Well Nourished and Appears Chronically Ill
HEENT: Normocephalic, Atraumatic and Other (right anterior chest/neck with bag to collect secretions)
Respiratory: Clear to Auscultation and Rhonchi (left lung base); Negative Wheezes
Cardiac: Regular Rhythm and S1/S2; Negative Murmur
GI: Soft, Nontender, Nondistended, Normal Bowel Sounds and Peg Tube (G, J )
Musculoskeletal: No Clubbing, No Cyanosis and No Edema
Neuro: Awake and Alert
[2024-07-25] MEDS: DECADRON 4 MG IV ×2 (12:21→23:08)
[2024-07-25 13:05] LABS: Glucose - Point of Care 152 mg/dl (70-99)
[2024-07-25] MEDS: NOVOLOG FLEXPEN-MODERATE RESISTANCE 1 UNITS SC (13:06)
[2024-07-25] MEDS: NEURONTIN 900 MG TUBE (14:14)
[2024-07-25 15:22] VITALS: BP 128/87
--- NOTE | 2024-07-25 15:30 | W.PN.PUL3 ---
Today's Communication / Plan
-
Up OOB as tolerated
Continue nebulizers + Symbicort
Continue Decadron
Mucolytics and raise guaifenesin to 400 mg QID
Patient requesting coffolator, vest therapy and deep suctioning
Antibiotics per ID
Possibly may be a candidate for Biologics which can be discussed as an outpatient. His absolute eosinophil count is <300, although was 200 on 04/18/2024, hence may be a candidate for Dupixent, otherwise likely Tezspire
Pulmonary service will continue to follow along
Assessment
-
28-year-old male with a history of Crohn's disease status post tracheoesophageal fistula repair, trach with subsequent removal, esophagectomy status post J-tube placement as well as a history of asthma recently diagnosed with pneumonia and developed
watery diarrhea and admitted with sepsis-pulmonary consulted for shortness of breath/sepsis 07/22/2024.
Fevers at home
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
Asthma with acute exacerbation
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
Leukocytosis
Elevated LFTs
Elevated procalcitonin
Conditions present prior to admission:
Crohn's disease on Stelara.
Tracheoesophageal fistula repair age 3.
Tracheal cleft repair age 3.
GJ tube placement.
Laryngeal cleft repair 2016.
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
Vocal cord paralysis.
GERD.
Asthma.
Right upper lobe 5.5 cm bleb/bulla
Chronic abdominal and back pain.
History of trach. Bilateral hip fracture. Left rotator cuff repair.
Plan
Respiratory decompensation, likely due to bronchitis and asthma exacerbation.
Recurrent asthma exacerbations due to inability to completely overcome infections and asthma exacerbations-he also reports is not on inhaled steroids; currently on Symbicort
Respiratory status improved but still tenuous with ongoing wheezing-somewhat improved
Continue supplemental oxygen as needed-currently on room air
Mucolytic's continues - raise mucinex to 400mg QID
Aspiration precautions-has esophagectomy and aspiration would be only oral contents.
Symbicort continues
Tobramycin nebulizers 300 mg twice daily continues.
Duonebs QID continue
Continue-Decadron 4 mg IV every 12 hours-mother reports in the past when he was on steroids a lot-they had to slowly reduce it because he had 'cortisol issues'-suspect adrenal insufficiency.
Consider additional Biologics if cannot come off steroids-would need to discuss with GI as patient on biologic- Stelara -IL 12/IL 23, inhibitor for Crohn's disease
Patient asking for coffolator, vest therapy and deep suctioning
Cultures reviewed
MRSA screen negative
Blood cultures -no growth
Influenza negative.
Antibiotics per infectious disease-currently on meropenem.
Follow leukocytosis and monitor for fever
Dr. Santana discussed briefly the potential need for a port placement as patient reports 'running out of veins' and likely to have repetitive hospitalizations
DVT prophylaxis-on Lovenox.
Nutrition-on tube feeds.
Physical therapy as tolerated
Dr. Santana reviewed with mother at the bedside in detail 07/23/24 as well as 07/24/2024
Outpatient pulmonary follow-up at [facility]-would also like to follow-up locally
Diagnostic data:
Chest x-ray 02/17/2019-lungs clear
Chest x-ray-Limited evaluation as a result of prior esophagectomy, cannot rule out patchy right suprahilar pneumonia
Chest x-ray 12/20/2021-NAD, multiple bullae over right medial lung unchanged
Chest x-ray 07/21/2024-NAD
CT chest 12/20/2021-no pulmonary embolism, moderate left lower lobe pneumonia, stable postoperative changes consistent with prior tracheoesophageal fistula repair, 5.5 cm bleb lower medial aspect right upper lobe
CT chest 07/21/2024-no acute abnormalities identified in the chest, stable chronic changes from prior tracheoesophageal fistula repair, large bleb bulla lower medial aspect right upper lobe measuring 6.1 cm
Total time spent today was 38 minutes for this encounter. Time includes reviewing laboratory test/imaging results, reviewing pertinent medical records, obtaining and reviewing medical history, performing an appropriate exam, ordering medications,
tests and procedures. Time also includes documentation of this encounter, coordinating patient care and communicating with other healthcare professionals. Total time does not include separately billed tests performed on this date of service.
Subjective Data
-
Date of Service:
Date of Service: July 25, 2024
Chief Complaint: Pulmonary Follow Up and Dyspnea Follow Up
Subjective:
Patient seen and eval at bedside (seen earlier today - late note entry). Sitting in the chair no acute stress, on room air breathing complete. Says he feels short of breath when he exerts himself but overall it is improved compared to the first
time he came into the hospital. He has difficulty clearing secretions which he says has been going on for a 'long time.' Currently denies chest pain, CLAIRE, nausea, fevers or chills.
Review of Systems
General: Other (Negative unless mentioned above)
Objective Data
Data Reviewed
Vital Signs / I&O / Oxygen:
Vital Signs
Temp Pulse Resp BP Pulse Ox
98.2 F 86 18 112/71 99
07/25/24 07:19 07/25/24 07:40 07/25/24 07:40 07/25/24 07:19 07/25/24 07:40
Intake and Output
07/24/24 07/25/24 07/26/24
06:59 06:59 06:59
Intake Total 4380 / 4380 3500 / 3500
Output Total 1185 / 1185 2250 / 2250
Balance 3195 / 3195 1250 / 1250
SaO2 99
Nasal Cannula flow liters per 1
minute
Physical Exam
General: Respiratory Distress (n) and Comfortable
HEENT: Normocephalic, Anicteric and Moist Mucous Membranes
Cardiovascular: S1-S2 and Peripheral Edema (negative)
Respiratory: Wheeze ([place] upon expiration bilaterally), Crackles ( rare basilar), Rhonchi (Bilateral), Non-Labored Respirations, Accessory Resp Muscle Use (n) and Stridor (negative)
GI: Soft, Non Distended, Non Tender and Normal Bowel Sounds
Neurology: Awake, Alert and Tremors (negative)
Skin: Warm, Dry, Cyanosis (n), Jaundice (n) and Rash (n)
Labs/Micro/Reports
Lab Data
07/25/24 06:49
07/25/24 06:49
Microbiology
07/21/24 11:30 Blood/Venous Blood Culture - Preliminary
No Growth in 72 hours- Final report to follow
07/21/24 11:30 Blood/Venous Blood Culture - Preliminary
No Growth in 72 hours- Final report to follow
07/21/24 20:07 Nose MRSA Screen - Final
No Methicillin Resistant Staphylococcus aureus isolated.
--- NOTE | 2024-07-25 16:23 | W.PN.ID1 ---
Date of Service
Date of Service: July 25, 2024
Today's Communication
Continue meropenem for now x 5-7d.
Assessment / Plan
# Probable tracheitis
# Fever at home - resolved
# SOB/chest congestion - improved
# Asthma/COPD exacerbation - on steroid
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
Esophagectomy with external pouch, G/J tube August 2022
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
# Allergy to IV Vancomycin, FQ, cefdinir
- blood cx's neg to date
- UA neg
- Outpt C. diff negative
- CT chest and CXR no acute process
-MRSA screen negative
- Was on outpt Augmentin and doxycycline without clinical response
- ?Probable tracheitis with Pseudomonas
- Continue meropenem 500mg IV q6h (d5 of 5-7)
- Appreciate Pulm management of asthma/COPD exacerbation.
-Continue airway clearance.
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
tracheoesophageal fistula repair, age 3
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
G/J-tube placement
Laryngeal cleft repair 2015
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
Vocal cord paralysis
Crohn's on Stelara
GERD
Asthma
Chronic abdominal pain
Chronic back pain
Prior tracheostomy
Pelvic fracture s/p repair
Bilateral hip fracture s/p repair
Left rotator cuff repair
Chief Complaint
-: Other (Wheezing)
Subjective / Review of Systems
+ chest congestion
Vital Signs / Physical Exam
Vital Signs
Vital Signs
Temp Pulse Resp BP Pulse Ox
98.6 F 100 16 128/87 97
07/25/24 15:22 07/25/24 15:42 07/25/24 15:42 07/25/24 15:22 07/25/24 15:42
Physical Exam
Constitutional: No Acute Distress
Cardiovascular: Regular Rate and S1/S2
Pulmonary: Rhonchi and Coarse; Negative Wheezes
Gastrointestinal: Soft, Non Tender, Non Distended and Normal Bowel Sounds
Neurological: AO x 3
Objective Data
Lab Data
Lab Results
07/25/24 06:49
07/25/24 06:49
Estimated Creat Clear > 125 ml/min 07/25/24 06:49
Lactic Acid Cancelled 07/21/24 22:42
Total Bilirubin 0.5 mg/dl (0.2-1.3) 07/25/24 06:49
AST 28 U/L (17-59) 07/25/24 06:49
ALT 63 U/L (0-50) H 07/25/24 06:49
Alkaline Phosphatase 228 U/L (38-126) H 07/25/24 06:49
Most recent labs reviewed.
Micro Results:
07/21/24 11:30 Blood Culture - Preliminary
Blood/Venous No Growth in 4 days- Final report to follow
07/21/24 11:30 Blood Culture - Preliminary
Blood/Venous No Growth in 4 days- Final report to follow
07/21/24 20:07 MRSA Screen - Final
Nose No Methicillin Resistant Staphylococcus aureus isolated.
07/21/24 05:37 Influenza Types A & B (WERNER) - Final
Nasal Swab Negative for Influenza A & B, NAAT
Negative results must be combined with clinical observations
and patient history.
Nucleic Acid Amplification test (NAAT)performed on the
[employer] platform.
07/21/[address]: No significant acute abnormality identified in the chest, as described above. Stable chronic changes from prior tracheoesophageal fistula repair.
07/21/24 CXR: no acute process
Care Review
Plan reviewed with: Physician (Drs. Hou and Tobi)
[2024-07-25 17:47] LABS: Glucose - Point of Care 139 mg/dl (70-99)
[2024-07-25] MEDS: MYCOSTATIN ORAL SUSPENSION 5 ML PO ×2 (17:47→22:54)
[2024-07-25] MEDS: NOVOLOG FLEXPEN-MODERATE RESISTANCE SC (17:48)
[2024-07-25] MEDS: LOVENOX 40 MG SC (17:48)
[2024-07-25] MEDS: ROBITUSSIN 400 MG TUBE ×2 (17:48→22:54)
[2024-07-25] MEDS: DUONEB INH (20:18)
[2024-07-25] MEDS: SYMBICORT 160/4.5 MCG INHALER INH (20:18)
[2024-07-25] MEDS: NEURONTIN 1500 MG TUBE (22:52)
[2024-07-25] MEDS: ZYRTEC 10 MG TUBE (22:56)
[2024-07-25 23:06] VITALS: BP 143/97
[2024-07-25] MEDS: MELATONIN 6 MG TUBE (23:19)
[2024-07-25] MEDS: NON-FORMULARY ITEM 6 ML TUBE (23:33)
[2024-07-25 23:45] VITALS: PULSE 2; PULSE 90
[2024-07-25 23:55] LABS: Glucose - Point of Care 129 mg/dl (70-99)
[2024-07-26] MEDS: NOVOLOG FLEXPEN-MODERATE RESISTANCE SC ×4 (00:24→18:07)
[2024-07-26 03:18] VITALS: PULSE 2
[2024-07-26] MEDS: DILAUDID 8 MG TUBE ×6 (04:29→23:46)
[2024-07-26] MEDS: MERREM 500 MG IV ×4 (05:08→23:46)
[2024-07-26] MEDS: STERILE WATER FOR INJECTION 10 ML IV ×4 (05:08→23:47)
[2024-07-26] MEDS: FLUSH (NSS) 2 FLUSH IV (05:08)
[2024-07-26 05:27] LABS: Glucose - Point of Care 134 mg/dl (70-99)
[2024-07-26 07:05] VITALS: BP 123/84
[2024-07-26] MEDS: DUONEB 3 ML INH ×4 (07:49→19:16)
[2024-07-26] MEDS: SYMBICORT 160/4.5 MCG INHALER 2 PUFF INH ×2 (07:50→19:16)
[2024-07-26] MEDS: NON-FORMULARY ITEM 1 UNIT TUBE ×2 (08:02→08:04)
[2024-07-26] MEDS: MYCOSTATIN ORAL SUSPENSION 5 ML PO ×4 (08:05→23:33)
[2024-07-26] MEDS: XANAX 1 MG TUBE ×3 (08:05→23:32)
[2024-07-26] MEDS: TYLENOL ORAL SOLUTION 1000 MG TUBE ×2 (08:05→23:30)
[2024-07-26] MEDS: ROBITUSSIN 400 MG TUBE ×4 (08:05→23:34)
[2024-07-26] MEDS: CALCIUM CARBONATE ORAL SUSP 500 MG PO ×2 (08:05→21:09)
[2024-07-26] MEDS: PEPCID 20 MG TUBE ×2 (08:06→21:08)
[2024-07-26] MEDS: ZANAFLEX 6 MG TUBE ×2 (08:06→23:45)
[2024-07-26] MEDS: FLEXERIL 15 MG TUBE ×3 (08:06→23:32)
[2024-07-26] MEDS: ZOFRAN 4 MG TUBE ×3 (08:12→23:46)
[2024-07-26] MEDS: PERIACTIN 4 MG TUBE ×4 (09:33→21:08)
[2024-07-26] MEDS: BENTYL 10 MG TUBE ×3 (09:34→23:54)
[2024-07-26] MEDS: NEURONTIN 1200 MG TUBE (09:34)
[2024-07-26] MEDS: NON-FORMULARY ITEM 400 UNIT TUBE (09:35)
--- NOTE | 2024-07-26 11:03 | W.PN.ID1 ---
Date of Service
Date of Service: July 26, 2024
Today's Communication
Continue with aggressive airway clearance.
Assessment / Plan
# Probable tracheitis
# Fever at home - resolved
# chest congestion
# Asthma/COPD exacerbation - on steroid
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
Esophagectomy with external pouch, G/J tube August 2022
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
# Allergy to IV Vancomycin, FQ, cefdinir
- blood cx's neg to date
- UA neg
- Outpt C. diff negative
- CT chest and CXR no acute process
-MRSA screen negative
- Was on outpt Augmentin and doxycycline without clinical response
- ?Probable tracheitis with Pseudomonas
- Continue meropenem 500mg IV q6h (d6 of 7)
-Discussed with patient that I will not extend meropenem past 7 days. Risks of long course abx outweigh benefits. No pneumonia on imaging.
- Aggressive airway clearance is the main component in management of his symptoms.
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
tracheoesophageal fistula repair, age 3
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
G/J-tube placement
Laryngeal cleft repair 2015
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
Vocal cord paralysis
Crohn's on Stelara
GERD
Asthma
Chronic abdominal pain
Chronic back pain
Prior tracheostomy
Pelvic fracture s/p repair
Bilateral hip fracture s/p repair
Left rotator cuff repair
Chief Complaint
-: Other (Wheezing)
Subjective / Review of Systems
Mom at bedside.
Pt frustrated regarding the chest congestion.
Vital Signs / Physical Exam
Vital Signs
Vital Signs
Temp Pulse Resp BP Pulse Ox
97.9 F 108 16 123/84 97
07/26/24 07:05 07/26/24 07:53 07/26/24 07:53 07/26/24 07:05 07/26/24 07:53
Physical Exam
Constitutional: No Acute Distress
Eyes: No Conjunctival Hemorrhage and Sclera Anicteric
Cardiovascular: Regular Rate and S1/S2
Pulmonary: Rhonchi (improves with coughing)
Gastrointestinal: Soft, Non Tender, Non Distended and Normal Bowel Sounds
Extremities: Negative Edema
Neurological: AO x 3
Objective Data
Lab Data
Lab Results
07/25/24 06:49
07/25/24 06:49
Estimated Creat Clear > 125 ml/min 07/25/24 06:49
Lactic Acid Cancelled 07/21/24 22:42
Total Bilirubin 0.5 mg/dl (0.2-1.3) 07/25/24 06:49
AST 28 U/L (17-59) 07/25/24 06:49
ALT 63 U/L (0-50) H 07/25/24 06:49
Alkaline Phosphatase 228 U/L (38-126) H 07/25/24 06:49
Most recent labs reviewed.
Micro Results:
07/21/24 11:30 Blood Culture - Preliminary
Blood/Venous No Growth in 4 days- Final report to follow
07/21/24 11:30 Blood Culture - Preliminary
Blood/Venous No Growth in 4 days- Final report to follow
07/21/24 20:07 MRSA Screen - Final
Nose No Methicillin Resistant Staphylococcus aureus isolated.
07/21/24 05:37 Influenza Types A & B (WERNER) - Final
Nasal Swab Negative for Influenza A & B, NAAT
Negative results must be combined with clinical observations
and patient history.
Nucleic Acid Amplification test (NAAT)performed on the
[employer] platform.
07/21/[address]: No significant acute abnormality identified in the chest, as described above. Stable chronic changes from prior tracheoesophageal fistula repair.
07/21/24 CXR: no acute process
[2024-07-26] MEDS: DECADRON 4 MG IV (11:41)
--- NOTE | 2024-07-26 11:57 | W.PN.HOSP.TC ---
Today's Communication/Plan
-
finish meropenem here
Assessment / Plan
Assessment / Plan
pt is a 28 year old male
Possible sepsis POA, source possible tracheitis with Pseudomonas--COVID/Flu negative--blood cultures x2 negative --apprec ID/pulm--pt with questions about abx--will defer to ID--currently on meropenem( day 6), should get tomorrow's dosing then
d/c--decrease decadron to 4mg IV Q44O--sgzocp to PO prednisone
Elevated isolated ALT, possibly reactive--Cont to trend
Other medical conditions:
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
tracheoesophageal fistula repair, age 3
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
G/J-tube placement, tube feed per pt's request
Laryngeal cleft repair 2015
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
Vocal cord paralysis
Crohn's on Stelara
GERD
Asthma
Chronic abdominal pain
Chronic back pain
Prior tracheostomy
Pelvic fracture s/p repair
Bilateral hip fracture s/p repair
Left rotator cuff repair
DVT proph-- Lovenox SQ
code status --full code
hopeful d/c home in next 24-48H
Anticipated Discharge: 24 - 48 hours
Subjective/Interval History
-
Date of Service: July 26, 2024
pt asking for reglan for n/v
asking resp therapy for QID vest, Cufflator, deep suction etc
Objective Data
-
Vital Signs:
max temp for 24 hours
07/25/24
15:22
Temp 98.6 F
Vital Signs
Temp Pulse Resp BP Pulse Ox
97.9 F 78 16 123/84 98
07/26/24 07:05 07/26/24 11:26 07/26/24 11:26 07/26/24 07:05 07/26/24 11:26
I&O
07/25/24 07/26/24 07/27/24
06:59 06:59 06:59
Intake Total 3500 / 3500 1700 / 1700
Output Total 2250 / 2250 2550 / 2550
Balance 1250 / 1250 -850 / -850
Review of Systems
-
All other systems: Reviewed and negative
Physical Exam
-
General: Appears Chronically Ill
HEENT: Normocephalic, Atraumatic and Other (bag hanging from right side of neck collecting secretions)
Respiratory: Clear to Auscultation; Negative Wheezes or Rhonchi
Cardiac: Regular Rhythm and S1/S2; Negative Murmur
GI: Soft, Nontender, Nondistended and Normal Bowel Sounds
Musculoskeletal: No Clubbing, No Cyanosis and No Edema
Neuro: Awake
[2024-07-26 12:11] LABS: Glucose - Point of Care 134 mg/dl (70-99)
[2024-07-26] MEDS: NON-FORMULARY ITEM 6 ML TUBE (13:00)
[2024-07-26] MEDS: NEURONTIN 900 MG TUBE (13:44)
[2024-07-26 15:05] VITALS: BP 146/100
--- NOTE | 2024-07-26 16:55 | W.PN.PUL3 ---
Today's Communication / Plan
-
Up OOB as tolerated
Continue nebulizers + Symbicort
Upon discharge, he should be sent home on triple inhaler therapy with Symbicort + Spiriva versus Trelegy/Breztri, in addition to prolonged prednisone taper with outpatient discussion of biologics
Continue Decadron for now, transitioning to prednisone taper as it gets closer to discharge
Mucolytics with guaifenesin to 400 mg QID
Patient requesting coffolator, vest therapy and deep suctioning
Antibiotics per ID
Possibly may be a candidate for Biologics which can be discussed as an outpatient. His absolute eosinophil count is <300, although was 200 on 04/18/2024, hence may be a candidate for Dupixent, otherwise likely Tezspire
Pulmonary service will continue to follow along
Assessment
-
28-year-old male with a history of Crohn's disease status post tracheoesophageal fistula repair, trach with subsequent removal, esophagectomy status post J-tube placement as well as a history of asthma recently diagnosed with pneumonia and developed
watery diarrhea and admitted with sepsis-pulmonary consulted for shortness of breath/sepsis 07/22/2024.
Fevers at home
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
Asthma with acute exacerbation
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
Leukocytosis
Elevated LFTs
Elevated procalcitonin
Conditions present prior to admission:
Crohn's disease on Stelara.
Tracheoesophageal fistula repair age 3.
Tracheal cleft repair age 3.
GJ tube placement.
Laryngeal cleft repair 2016.
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
Vocal cord paralysis.
GERD.
Asthma.
Right upper lobe 5.5 cm bleb/bulla
Chronic abdominal and back pain.
History of trach. Bilateral hip fracture. Left rotator cuff repair.
Plan
Respiratory decompensation, likely due to bronchitis and asthma exacerbation.
Recurrent asthma exacerbations due to inability to completely overcome infections and asthma exacerbations-he also reports is not on inhaled steroids; currently on Symbicort
Respiratory status improved but still tenuous
Continue supplemental oxygen as needed-currently on room air
Mucolytic's continues - mucinex to 400mg QID
Aspiration precautions-has esophagectomy and aspiration would be only oral contents.
Symbicort continues
Tobramycin nebulizers 300 mg twice daily continues.
Duonebs QID continue
Continue-Decadron 4 mg IV every 12 hours-mother reports in the past when he was on steroids a lot-they had to slowly reduce it because he had 'cortisol issues'-suspect adrenal insufficiency.
Consider additional Biologics if cannot come off steroids-would need to discuss with GI as patient on biologic- Stelara -IL 12/IL 23, inhibitor for Crohn's disease
If Biologics for asthma are considered, could try Dupixent although he does not have significant eosinophilia. His absolute eosinophils were 200 on 04/18/2024, and with his systemic steroid use for asthma which does make him feel better, he would
still qualify for Dupixent
We briefly held the nebulized 3% but he would like to have this resumed tonight (07/26)
Patient asking for coffolator, vest therapy and deep suctioning
Cultures reviewed
MRSA screen negative
Blood cultures -no growth
Influenza negative.
Antibiotics per infectious disease-currently on meropenem.
Follow leukocytosis and monitor for fever
Dr. Santana discussed briefly the potential need for a port placement as patient reports 'running out of veins' and likely to have repetitive hospitalizations
DVT prophylaxis-on Lovenox.
Nutrition-on tube feeds.
Physical therapy as tolerated
Dr. Santana reviewed with mother at the bedside in detail 07/23/24 as well as 07/24/[address]24
[address] Britton discussed with the mother over the phone at bedside on 07/26/2024
Out[facility] pulmonary [facility] at [facility]-would also like to follow-up locally
Diagnostic data:
Chest x-ray 02/17/2019-lungs clear
Chest x-ray/11/28-Limited evaluation as a result of prior esophagectomy, cannot rule out patchy right suprahilar pneumonia
Chest x-ray 12/20/2021-NAD, multiple bullae over right medial lung unchanged
Chest x-ray 07/21/2024-NAD
CT chest 12/20/2021-no pulmonary embolism, moderate left lower lobe pneumonia, stable postoperative changes consistent with prior tracheoesophageal fistula repair, 5.5 cm bleb lower medial aspect right upper lobe
CT chest 07/21/2024-no acute abnormalities identified in the chest, stable chronic changes from prior tracheoesophageal fistula repair, large bleb bulla lower medial aspect right upper lobe measuring 6.1 cm
Total time spent today was 39 minutes for this encounter. Time includes reviewing laboratory test/imaging results, reviewing pertinent medical records, obtaining and reviewing medical history, performing an appropriate exam, ordering medications,
tests and procedures. Time also includes documentation of this encounter, coordinating patient care and communicating with other healthcare professionals. Total time does not include separately billed tests performed on this date of service.
Subjective Data
-
Date of Service:
Date of Service: July 26, 2024
Chief Complaint: Pulmonary Follow Up and Dyspnea Follow Up
Subjective:
Patient seen earlier this afternoon (late note entry). Currently resting in bed no acute distress. On room air breathing comfortably. Very worried about when he is discharged, as he does not want to continue to feel short of breath and come back
to the hospital as a hospitalization. Currently denies CLAIRE, chest pain, fevers or chills, continues to have difficulty bringing up his phlegm but it is no different than yesterday. He would like to take the nebulized 3% again tonight to see if he
feels better tomorrow morning.
Review of Systems
General: Other (Negative unless mentioned above)
Objective Data
Data Reviewed
Vital Signs / I&O / Oxygen:
Vital Signs
Temp Pulse Resp BP Pulse Ox
97.9 F 108 16 123/84 97
07/26/24 07:05 07/26/24 07:53 07/26/24 07:53 07/26/24 07:05 07/26/24 07:53
Intake and Output
07/25/24 07/26/24 07/27/24
06:59 06:59 06:59
Intake Total 3500 / 3500 1700 / 1700
Output Total 2250 / 2250 2550 / 2550
Balance 1250 / 1250 -850 / -850
SaO2 97
Nasal Cannula flow liters per 1
minute
Physical Exam
General: Respiratory Distress (n) and Comfortable
HEENT: Normocephalic, Anicteric and Moist Mucous Membranes
Cardiovascular: S1-S2 and Peripheral Edema (negative)
Respiratory: Wheeze (negative), Crackles ( rare basilar), Rhonchi (Bilateral), Non-Labored Respirations, Accessory Resp Muscle Use (n), Stridor (negative) and Other (Inspiratory squeaks heard in the bilateral upper lung alva posteriorly)
GI: Soft, Non Distended, Non Tender and Normal Bowel Sounds
Neurology: Awake, Alert and Tremors (negative)
Skin: Warm, Dry, Cyanosis (n), Jaundice (n), Rash (n) and Other (Drain on right anterior chest wall attached to an diaper)
Labs/Micro/Reports
Lab Data
07/25/24 06:49
07/25/24 06:49
Microbiology
07/21/24 11:30 Blood/Venous Blood Culture - Preliminary
No Growth in 4 days- Final report to follow
07/21/24 11:30 Blood/Venous Blood Culture - Preliminary
No Growth in 4 days- Final report to follow
07/21/24 20:07 Nose MRSA Screen - Final
No Methicillin Resistant Staphylococcus aureus isolated.
[2024-07-26 18:01] LABS: Glucose - Point of Care 145 mg/dl (70-99)
[2024-07-26] MEDS: LOVENOX 40 MG SC (18:07)
[2024-07-26] MEDS: SODIUM CHLORIDE 3% FOR INHALATION 1 VIAL INH (20:43)
[2024-07-26 23:32] VITALS: BP 150/98
[2024-07-26] MEDS: ZYRTEC 10 MG TUBE (23:34)
[2024-07-26] MEDS: MELATONIN 6 MG TUBE (23:46)
[2024-07-26 23:47] LABS: Glucose - Point of Care 118 mg/dl (70-99)
[2024-07-26] MEDS: NEURONTIN 1500 MG TUBE (23:54)
[2024-07-27 00:10] VITALS: PULSE 2; PULSE 93
[2024-07-27] MEDS: NOVOLOG FLEXPEN-MODERATE RESISTANCE SC ×2 (00:48→06:22)
[2024-07-27] MEDS: REGLAN 5 MG TUBE ×2 (01:50→13:24)
[2024-07-27] MEDS: NON-FORMULARY ITEM 6 ML TUBE ×2 (01:50→11:57)
[2024-07-27 03:28] VITALS: PULSE 2
[2024-07-27] MEDS: DILAUDID 8 MG TUBE ×4 (05:31→16:18)
[2024-07-27] MEDS: MERREM 500 MG IV ×3 (05:31→16:18)
[2024-07-27] MEDS: STERILE WATER FOR INJECTION 10 ML IV ×3 (05:31→16:18)
[2024-07-27 05:41] LABS: Glucose - Point of Care 132 mg/dl (70-99)
[2024-07-27 07:10] VITALS: BP 129/86
[2024-07-27] MEDS: DUONEB 3 ML INH ×2 (07:16→11:28)
[2024-07-27] MEDS: SODIUM CHLORIDE 3% FOR INHALATION 1 VIAL INH ×2 (07:16→11:28)
[2024-07-27] MEDS: SYMBICORT 160/4.5 MCG INHALER 2 PUFF INH (07:16)
[2024-07-27 07:40] LABS: Blood Urea Nitrogen 18 mg/dl (9-20); Calcium 9.5 mg/dl (8.4-10.2); Carbon Dioxide 31 mmol/L (22-30); Chloride 102 mmol/L (98-107); Estimated Creatinine Clearance > 125 ml/min; Glucose 125 mg/dl (70-99); Magnesium 2.6 mg/dl (1.6-2.3); Potassium 4.6 mmol/L (3.5-5.1); Sodium 138 mmol/L (135-145); eGFR > 60.00
[2024-07-27 07:43] LABS: Hematocrit 43.5 % (39.0-52.0); Hemoglobin 14.5 g/dL (13.0-18.0); Mean Corp Hgb Conc. 33.3 g/dL (33.0-37.0); Mean Corpuscular Hgb 29.7 pg (27.0-31.0); Mean Platelet Volume 13.8 fL (7.4-10.4); Platelet Count 153 10^3/uL (130-400); Red Blood Cell Count 4.89 10^6/uL (4.70-6.10); White Blood Cell Count 15.8 10^3/uL (4.8-10.8)
[2024-07-27] MEDS: MYCOSTATIN ORAL SUSPENSION 5 ML PO ×2 (07:50→13:23)
[2024-07-27] MEDS: DELTASONE 50 MG TUBE (07:51)
[2024-07-27] MEDS: FLEXERIL 15 MG TUBE ×2 (07:51→16:18)
[2024-07-27] MEDS: ZANAFLEX 6 MG TUBE (07:52)
[2024-07-27] MEDS: TYLENOL ORAL SOLUTION 1000 MG TUBE (07:52)
[2024-07-27] MEDS: XANAX 1 MG TUBE ×2 (07:52→16:18)
[2024-07-27] MEDS: PEPCID 20 MG TUBE (07:52)
[2024-07-27] MEDS: CALCIUM CARBONATE ORAL SUSP 500 MG PO (07:54)
[2024-07-27] MEDS: NEURONTIN 1200 MG TUBE (07:55)
[2024-07-27] MEDS: ROBITUSSIN 400 MG TUBE ×2 (07:55→13:22)
[2024-07-27] MEDS: NON-FORMULARY ITEM 1 UNIT TUBE ×3 (07:58→09:19)
[2024-07-27] MEDS: PERIACTIN 4 MG TUBE ×3 (08:10→16:18)
[2024-07-27] MEDS: BENTYL 10 MG TUBE ×2 (08:38→15:10)
[2024-07-27] MEDS: ZOFRAN 4 MG TUBE ×2 (08:38→15:11)
--- NOTE | 2024-07-27 10:37 | CM ---
Patient well in therapy. Is close to baseline.
Plan: Case management will continue to follow and assist with discharge planning. Home when stable.
--- NOTE | 2024-07-27 12:28 | W.DS.TRANS ---
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
-
Discharge Instructions:
Discharge Diagnosis/Procedures Sepsis with possible Pseudomonas tracheitis,
esophageal atresia status post esophagectomy
with external pouch and tracheoesophageal
fistula repair, Crohn's disease,
gastroesophageal reflux disease, asthma, chronic
abdominal pain, chronic back pain, prior
tracheostomy
Diet Tube feeding
Activity As tolerated
Driving Restrictions As prior to admission
Bathing Restrictions None
Instructions:
Stand-Alone Forms:
Changes to Home Medications: Yes
Discharge Medications:
DC Medications w/original date entered in [facility]
cetirizine 1 mg/mL oral solution (Children's Cetirizine) 10 mg feeding tube HS Allergies 02/27/10
famotidine 40 mg/5 mL (8 mg/mL) oral suspension 20 mg feeding tube BID@0800,2000 Gastrointestinal Issue ##0 03/13/20
sennosides 8.8 mg/5 mL oral syrup (senna) 8.8 mg feeding tube BIDPRN PRN constipation ##0 03/13/20
cholecalciferol (vitamin D3) 10 mcg/mL (400 unit/mL) oral drops (D-Vi-Samanta) 10 mcg feeding tube DAILY Supplement ##0 06/29/21
gabapentin 250 mg/5 mL (5 mL) oral solution 1,200 mg feeding tube DAILY neuropathic pain 06/29/21
lansoprazole 30 mg delayed release,disintegrating tablet (Prevacid SoluTab) 30 mg feeding tube BID Gastrointestinal issue 06/29/21
prucalopride 2 mg tablet (Motegrity) 2 mg feeding tube DAILY@1200 Constipation 06/29/21
Ursodiol 50mg/Ml 6 ml feeding tube BID Gallstone Dissolution Age 0507/21/24
acetaminophen 160 mg/5 mL (5 mL) oral solution 1,000 mg feeding tube BIDPRN PRN mild pain 07/21/24
alprazolam 1 mg disintegrating tablet 1 mg feeding tube TID Mental Health/Anxiety 07/21/24
aprepitant 40 mg capsule 40 mg feeding tube DAILY Antiemetic; 07/21/24
budesonide-formoterol HFA 160 mcg-4.5 mcg/actuation aerosol inhaler (Symbicort) 2 inh inhalation R BID Lung/Breathing Issues 07/21/24
cyclobenzaprine 10 mg tablet 15 mg feeding tube TID Muscle Spasms 07/21/24
cyproheptadine 2 mg/5 mL oral syrup 4 mg feeding tube QID@08,12,16,20 Histamine H1 Antagonist; 07/21/24
dicyclomine 10 mg/5 mL oral solution 10 mg feeding tube Q6H Anticholinergic Agent 07/21/24
doxycycline hyclate 100 mg capsule 100 mg feeding tube BID Infection 07/21/24
gabapentin 250 mg/5 mL (5 mL) oral solution 1,500 mg feeding tube HS neuropathic pain 07/21/24
gabapentin 250 mg/5 mL oral solution 900 mg feeding tube DAILY@1400 neuropathic pain 07/21/24
hydromorphone 1 mg/mL oral liquid 8 mg feeding tube Q4H Pain 07/21/24
ipratropium bromide 0.02 % solution for inhalation 2.5 ml inhalation R TID Lung/Breathing Issues 07/21/24
melatonin 3 mg tablet 6 mg feeding tube HSPRN PRN sleep 07/21/24
metoclopramide HCl 5 mg/5 mL oral solution 5 mg feeding tube TIDPRN PRN spasms 07/21/24
naloxegol 12.5 mg tablet (Movantik) 6.25 mg PO DAILY feeding tube OIC 07/21/24
ondansetron HCl 4 mg/5 mL oral solution 4 mg feeding tube Q6H Gastrointestinal Issue 07/21/24
scopolamine base 1 mg over 3 days transdermal patch 1 patch transdermal Q3D Anticholinergic Agent 07/21/24
sodium chloride 7 % for nebulization 1 inh inhalation R TID Lung/Breathing Issues 07/21/24
tizanidine 2 mg tablet 6 mg feeding tube Q8H PRN muscle spasms 07/21/24
tobramycin 300 mg/5 mL in 0.225 % sodium chloride for nebulization 5 ml inhalation BID Lung/Breathing Issues 07/21/24
ustekinumab 90 mg/mL subcutaneous syringe (Stelara) 90 mg SC MONTHLY Antipsoriatic Agent 07/21/24
calcium carbonate 500 mg/5 mL (as calcium carb 1,250 mg/5 mL) oral suspension 500 mg PO BID 07/23/24
prednisone 10 mg tablet 10 mg PO DIRECTED #30 tabs 07/27/24
Home Medication Changes
Prednisone taper
Pending Results: No
[2024-07-27 12:34] LABS: Glucose - Point of Care 197 mg/dl (70-99)
--- NOTE | 2024-07-27 12:42 | W.PN.ID1 ---
Date of Service
Date of Service: July 27, 2024
Today's Communication
Last day of meropenem.
Assessment / Plan
# Probable tracheitis
# Fever at home - resolved
# chest congestion
# Asthma/COPD exacerbation - on steroid
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
Esophagectomy with external pouch, G/J tube August 2022
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
# Allergy to IV Vancomycin, FQ, cefdinir
- blood cx's neg to date
- UA neg
- Outpt C. diff negative
- CT chest and CXR no acute process
-MRSA screen negative
- Was on outpt Augmentin and doxycycline without clinical response
- ?Probable tracheitis with Pseudomonas
- Continue meropenem 500mg IV q6h (d7 of 7)
-Discussed with patient that I will not extend meropenem past 7 days. Risks of long course abx outweigh benefits. No pneumonia on imaging.
- Aggressive airway clearance is the main component in management of his symptoms. Appreciate Pulm.
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
tracheoesophageal fistula repair, age 3
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
G/J-tube placement
Laryngeal cleft repair 2015
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
Vocal cord paralysis
Crohn's on Stelara
GERD
Asthma
Chronic abdominal pain
Chronic back pain
Prior tracheostomy
Pelvic fracture s/p repair
Bilateral hip fracture s/p repair
Left rotator cuff repair
Chief Complaint
-: Other (Wheezing)
Subjective / Review of Systems
Mom at bedside. J tube was leaking yesterday.
Vital Signs / Physical Exam
Vital Signs
Vital Signs
Temp Pulse Resp BP Pulse Ox
98.1 F 88 18 129/86 97
07/27/24 07:10 07/27/24 11:33 07/27/24 11:33 07/27/24 07:10 07/27/24 07:10
Physical Exam
Constitutional: No Acute Distress
Cardiovascular: Regular Rate and S1/S2
Pulmonary: Clear and Rhonchi (improves with coughing); Negative Wheezes
Extremities: Negative Edema
Objective Data
Lab Data
Lab Results
07/27/24 06:26
07/27/24 06:26
Estimated Creat Clear > 125 ml/min 07/27/24 06:26
Lactic Acid Cancelled 07/21/24 22:42
Total Bilirubin 0.5 mg/dl (0.2-1.3) 07/25/24 06:49
AST 28 U/L (17-59) 07/25/24 06:49
ALT 63 U/L (0-50) H 07/25/24 06:49
Alkaline Phosphatase 228 U/L (38-126) H 07/25/24 06:49
Most recent labs reviewed.
Micro Results:
07/21/24 11:30 Blood Culture - Final
Blood/Venous No Growth - Final Report
07/21/24 11:30 Blood Culture - Final
Blood/Venous No Growth - Final Report
07/21/24 20:07 MRSA Screen - Final
Nose No Methicillin Resistant Staphylococcus aureus isolated.
07/21/24 05:37 Influenza Types A & B (WERNER) - Final
Nasal Swab Negative for Influenza A & B, NAAT
Negative results must be combined with clinical observations
and patient history.
Nucleic Acid Amplification test (NAAT)performed on the
Avisena platform.
07/21/[address]: No significant acute abnormality identified in the chest, as described above. Stable chronic changes from prior tracheoesophageal fistula repair.
07/21/24 CXR: no acute process
[2024-07-27] MEDS: TRANSDERM-SCOP 1 PATCH TRANSDERM (13:22)
[2024-07-27] MEDS: NEURONTIN 900 MG TUBE (13:23)
[2024-07-27] MEDS: NOVOLOG FLEXPEN-MODERATE RESISTANCE 1 UNITS SC (13:24)
[2024-07-27] MEDS: SENNA SYRUP 8.8 MG TUBE (13:31)
--- NOTE | 2024-07-27 14:21 | W.PN.PUL3 ---
Today's Communication / Plan
-
Remains on IV abx per ID, to finish course today
Stable on RA, continue airway clearance measures
We discussed various trials that can be done to treat infection/reduce hospitalizations but I also feel these measures are not guaranteed
He wishes to follow up locally and see [place] [facility] when needed, we can arrange OP FU
Otherwise, discharge planning is noted
Assessment
-
28-year-old male with a history of Crohn's disease status post tracheoesophageal fistula repair, trach with subsequent removal, esophagectomy status post J-tube placement as well as a history of asthma recently diagnosed with pneumonia and developed
watery diarrhea and admitted with sepsis-pulmonary consulted for shortness of breath/sepsis 07/22/2024.
Fevers at home
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
Asthma with acute exacerbation
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
Leukocytosis
Elevated LFTs
Elevated procalcitonin
Conditions present prior to admission:
Crohn's disease on Stelara.
Tracheoesophageal fistula repair age 3.
Tracheal cleft repair age 3.
GJ tube placement.
Laryngeal cleft repair 2016.
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
Vocal cord paralysis.
GERD.
Asthma.
Right upper lobe 5.5 cm bleb/bulla
Chronic abdominal and back pain.
History of trach. Bilateral hip fracture. Left rotator cuff repair.
Plan
Respiratory decompensation, likely due to bronchitis and asthma exacerbation.
Recurrent asthma exacerbations due to inability to completely overcome infections and asthma exacerbations-he also reports is not on inhaled steroids; currently on Symbicort
Stable on RA
Respiratory status improved but still tenuous
Continue supplemental oxygen as needed-currently on room air
Mucolytic's continues - mucinex to 400mg QID
Aspiration precautions-has esophagectomy and aspiration would be only oral contents.
Symbicort continues
Tobramycin nebulizers 300 mg twice daily continues.
Duonebs QID continue
Continue steroids taper, now on prednisone-mother reports in the past when he was on steroids a lot-they had to slowly reduce it because he had 'cortisol issues'-suspect adrenal insufficiency.
Consider additional Biologics if cannot come off steroids-would need to discuss with GI as patient on biologic- Stelara -IL 12/IL 23, inhibitor for Crohn's disease
If Biologics for asthma are considered, could try Dupixent although he does not have significant eosinophilia. His absolute eosinophils were 200 on 04/18/2024, and with his systemic steroid use for asthma which does make him feel better, he would
still qualify for Dupixent
We briefly held the nebulized 3% but he would like to have this resumed tonight (07/26)
Patient asking for Cufflator, vest therapy and deep suctioning
Cultures reviewed
MRSA screen negative
Blood cultures -no growth
Influenza negative.
Antibiotics per infectious disease-currently on meropenem.
Follow leukocytosis and monitor for fever
Dr. Santana discussed briefly the potential need for a port placement as patient reports 'running out of veins' and likely to have repetitive hospitalizations
We have discussed other temporary measures likely suppressive abx regiment but this may increase his resistance considerably and routine bronch wash outs
He feels his overall QoL is being affected by his frequent hospitalizations
DVT prophylaxis-on Lovenox.
Nutrition-on tube feeds.
Physical therapy as tolerated
Dr. Santana reviewed with mother at the bedside in detail 07/23/24 as well as 07/24/[address] Britton discussed with the mother over the phone at bedside on 07/26/2024
Dr Griffin discussed with patient and mother over phone 07/27/24
Outpatient pulmonary follow-up at [facility]-would also like to follow-up locally
We are happy to manage locally, had been following with Dr Bond at [place] when he aged out of [facility]
Diagnostic data:
Chest x-ray 02/17/2019-lungs clear
Chest x-ray/11/28-Limited evaluation as a result of prior esophagectomy, cannot rule out patchy right suprahilar pneumonia
Chest x-ray 12/20/2021-NAD, multiple bullae over right medial lung unchanged
Chest x-ray 07/21/2024-NAD
CT chest 12/20/2021-no pulmonary embolism, moderate left lower lobe pneumonia, stable postoperative changes consistent with prior tracheoesophageal fistula repair, 5.5 cm bleb lower medial aspect right upper lobe
CT chest 07/21/2024-no acute abnormalities identified in the chest, stable chronic changes from prior tracheoesophageal fistula repair, large bleb bulla lower medial aspect right upper lobe measuring 6.1 cm
-----
Total time spent today was 55 minutes for this encounter. Time includes reviewing laboratory test/imaging results, reviewing pertinent medical records, obtaining and reviewing medical history, performing an appropriate exam, ordering medications,
tests and procedures. Time also includes documentation of this encounter, coordinating patient care and communicating with other healthcare professionals. Total time does not include separately billed tests performed on this date of service.
Subjective Data
-
Date of Service:
Date of Service: July 27, 2024
Chief Complaint: Pulmonary Follow Up and Dyspnea Follow Up
Subjective:
No new complaints, still having cough/mucus production
Stable on RA
Objective Data
Data Reviewed
Vital Signs / I&O / Oxygen:
Vital Signs
Temp Pulse Resp BP Pulse Ox
98.1 F 88 18 129/86 97
07/27/24 07:10 07/27/24 11:33 07/27/24 11:33 07/27/24 07:10 07/27/24 07:10
Intake and Output
07/26/24 07/27/24 07/28/24
06:59 06:59 06:59
Intake Total 1700 / 1700 0 / 0
Output Total 2550 / 2550 1650 / 1650 750 / 750
Balance -850 / -850 -1650 / -1650 -750 / -750
SaO2 97
Nasal Cannula flow liters per 1
minute
Physical Exam
General: Respiratory Distress (n) and Comfortable
HEENT: Normocephalic, Anicteric, Moist Mucous Membranes and Other (trach scar present)
Cardiovascular: S1-S2, Regular Rhythm and Peripheral Edema (negative)
Respiratory: Wheeze (negative), Crackles ( rare basilar), Rhonchi (Bilateral), Non-Labored Respirations, Stridor (negative) and Other (anterior chest wall esophageal diverting ostomy)
GI: Soft, Non Distended, Non Tender, Normal Bowel Sounds and Feeding Tube
Neurology: Awake, Alert, Oriented, No Motor Deficits and Tremors (negative)
Skin: Warm, Dry, Cyanosis (n), Jaundice (n), Rash (n) and Other (Drain on right anterior chest wall attached to an diaper)
Labs/Micro/Reports
Lab Data
07/27/24 06:26
07/27/24 06:26
Microbiology
07/21/24 11:30 Blood/Venous Blood Culture - Final
No Growth - Final Report
07/21/24 11:30 Blood/Venous Blood Culture - Final
No Growth - Final Report
[2024-07-27 16:20] VITALS: BP 136/97
[2024-07-27] MEDS: DUONEB INH (16:45)
[2024-07-27] MEDS: SODIUM CHLORIDE 3% FOR INHALATION INH (16:45)
--- NOTE | 2024-07-27 17:37 | PTCARENOTE ---
Pt concerned about drainage from J tube. Medications given through tube and no drainage noted when giving meds. Is having what looks like gastric contents leaking from site at times. No purulent drainage or inflammation noted around site. Pt had
discussion w/ hospitalist regarding this and plan is for him to f/u w/ surgeon at [facility] and/or [facility]. Pt w/ no other complaints at time of discharge.
== END 2024-07-27 17:39 | disposition home or self-care (01) | DRG 872 ==
LOC: 2 NORTH 10:36
PROVIDERS: Internal Medicine; Physician Assistant; ADMITTING PHYSICIAN Internal Medicine; ATTENDING PHYSICIAN Internal Medicine; CONSULT PHYSICIAN Internal Medicine Critical Care Medicine; CONSULT PHYSICIAN Internal Medicine Infectious Disease; EMERGENCY PHYSICIAN Emergency Medicine; FAMILY PHYSICIAN Family Medicine
PROC: 5A09357 Assistance with Respiratory Ventilation, Less than 24 Consecutive Hours, Continuous Positive Airway Pressure (ICD-10-PCS; 2024-07-22)
DX: A41.52 Sepsis due to Pseudomonas (principal); K50.90 Crohn's disease, unspecified, without complications; J44.1 Chronic obstructive pulmonary disease with (acute) exacerbation; J04.10 Acute tracheitis without obstruction; R79.89 Other specified abnormal findings of blood chemistry; J38.00 Paralysis of vocal cords and larynx, unspecified; K21.9 Gastro-esophageal reflux disease without esophagitis; G89.29 Other chronic pain; M54.9 Dorsalgia, unspecified; Z90.49 Acquired absence of other specified parts of digestive tract; Z93.4 Other artificial openings of gastrointestinal tract status; Z88.8 Allergy status to other drugs, medicaments and biological substances; Z88.6 Allergy status to analgesic agent; Z88.1 Allergy status to other antibiotic agents; Z91.011 Allergy to milk products; Z22.39 Carrier of other specified bacterial diseases; Z87.01 Personal history of pneumonia (recurrent); Z11.52 Encounter for screening for COVID-19; Z87.81 Personal history of (healed) traumatic fracture; Z98.84 Bariatric surgery status; Z79.51 Long term (current) use of inhaled steroids
CPT/HCPCS: 71046; 71260; 80048; 80053; 81003; 82962; 83605; 83690; 83735; 84145; 85025; 85027; 87040; 87070; 87502; 87811; 93005; 94640; 94660; 94669; 96365; 96367; 96375; 97116; 97163; 99285; Q9967

== ENCOUNTER 2024-08-11 02:52 | Inpatient (IN) | payer MEDICARE, OTHER, SELFPAY ==
[2024-08-10 17:23] VITALS: BP 132/101
[2024-08-10 19:28] VITALS: BP 129/89
[2024-08-10 21:06] VITALS: BP 131/101
[2024-08-10 21:08] VITALS: BMI 27.9
[2024-08-10 21:18] LABS: % Basophils 0.3 % (0-2); % Eosinophils 1.6 % (0-6); % Immature Granulocytes 0.3 % (0-0.5); % Monocytes 6.6 % (1.7-9.3); % Neutrophils 69.2 % (42.2-75.2); Absolute Eosinophils 0.2 10^3/uL (0-0.7); Absolute Lymphocytes 2.4 10^3/uL (1.2-3.4); Absolute Monocytes 0.7 10^3/uL (0.1-0.6); Absolute Neutrophils 7.4 10^3/uL (1.4-6.5); Hematocrit 42.8 % (39.0-52.0); Hemoglobin 13.9 g/dL (13.0-18.0); Mean Corp Hgb Conc. 32.5 g/dL (33.0-37.0); Mean Corpuscular Volume 89.4 fL (80.0-94.0); Mean Platelet Volume 12.5 fL (7.4-10.4); Nucleated Red Blood Cells % 0 % (-); Platelet Count 148 10^3/uL (130-400); Red Blood Cell Count 4.79 10^6/uL (4.70-6.10); Red Cell Dist. Width 14.1 % (11.5-14.5); White Blood Cell Count 10.7 10^3/uL (4.8-10.8)
[2024-08-10 21:36] LABS: ALT (SGPT) 134 U/L (0-50); AST (SGOT) 59 U/L (17-59); Albumin 4.9 g/dl (3.5-5.0); Alkaline Phosphatase 245 U/L (38-126); Blood Urea Nitrogen 11 mg/dl (9-20); Calcium 9.6 mg/dl (8.4-10.2); Carbon Dioxide 28 mmol/L (22-30); Chloride 105 mmol/L (98-107); Estimated Creatinine Clearance > 125 ml/min; Glucose 95 mg/dl (70-99); Potassium 4.1 mmol/L (3.5-5.1); Sodium 141 mmol/L (135-145); Total Bilirubin 0.9 mg/dl (0.2-1.3); Total Protein 7.8 g/dl (6.3-8.2); eGFR > 60.00
[2024-08-10] MEDS: NSS 1000 IV (22:31)
[2024-08-10 22:33] VITALS: BP 136/97
[2024-08-10] MEDS: DUONEB 3 ML INH (23:33)
[2024-08-10] MEDS: DECADRON 10 MG IV (23:44)
[2024-08-10 23:52] VITALS: BP 132/101
[2024-08-11] VITALS (10 sets, daily range): BP systolic 100–155; BP diastolic 63–106; PULSE 2–112; BMI 27.9
--- NOTE | 2024-08-11 00:53 | ED.GENMED ---
History of Present Illness
General
Chief Complaint: Dehydration Symptoms
Source: patient and family
Exam Limitations: none
Time Seen by Provider: 08/10/24 20:46
Nursing documentation reviewed up to this point in time: agreed with
History of Present Illness
History of Present Illness:
28-year-old male with past medical history of asthma COPD Crohn's disease vocal cord paralysis status post current J-tube esophagostomy presenting to the emergency department today with multiple concerns. He concerned that he is having worsening
shortness of breath that is recurrent. He was recently admitted here had wheezing seem to be somewhat improving but now worsening and short of breath. Also feels that he may be dehydrated he has had decreased urine output and has had increased
leaking from the J-tube site.
Past History
Past History
ED Past Medical History: Asthma (esophageal atresia), Other (Esophageal atresia, tracheoesophageal fistula, tracheal cleft, GJ tube, aspiration pneumonia) and Other (Crohn's disease, colitis.)
ED Past Surgical History: Cholecystectomy and Other (JG tube, tracheoesophageal fistula repair, laryngeal cleft repair, prior tracheostomy.)
Patient has exhibited threatening behavior?: No
PSI?: No
Social History
Tobacco: Non-smoker
Alcohol: None
Drug: None
Personal: Single
Living: with family
Employment: Not employed
Family History
Family History: Other (Noncontributory)
Review of Systems
Review of Systems
Allergies reviewed?: Yes
All Other Systems: ROS reviewed and negative except as documented in HPI and ROS
Phy Exam
Physical Exam
Physical Exam:
GENERAL: Alert , in no apparent distress
EYE: pupils equal and reactive
NECK: Supple, no significant adenopathy.
ENT: o/p clr, mmm.
CARDIAC: Regular rate and rhythm .
LUNGS: Chest wall with bag for secretions\\Inspiratory expiratory wheezing
ABDOMEN: J-tube in place soft, without focal tenderness, no r/g, no cvat
NEUROLOGICAL: Alert and oriented, no focal neuro deficits
SKIN: Warm and dry, skin intact.
MUSCULOSKELETAL: No edema, well perfused.
PSYCH: Normal and appropriate interaction.
Course
Orders/Labs/Results
Orders:
Orders
08/10/24 17:28
Electrocardiogram (*1) Urgent
Reason for Study: Abdominal Pain
EKG- Treatment ONCE
08/10/24 21:09
Complete Blood Count/With Diff Urgent
Comprehensive Metabolic Panel Urgent
08/10/24 22:21
CT Abd/pel Without Iv Or Oral Urgent
Comment:
Reason For Exam: flank pain
0.9% Sodium Chloride 1000 ml [Nss] 1,000 ml IV BOLUS
08/10/24 22:58
Dexamethasone Sod Phosphate [Decadron] 10 mg IV NOW STA
Ipratropium/Albuterol Sulfate [Duoneb] 3 ml INH R NOW ONE
08/10/24 22:59
Urinalysis Reflex To Culture Urgent
Date Specimen was Collected: 08/11/24
Time Specimen was Collected: 04:22
08/10/24 23:06
Chest X-ray Portable [CR Chest Portable - 1 View] Urgent
Comment:
Reason For Exam: cough/sob
Reason Study Needs to be Portable: Patient Unstable
08/10/24 23:31
Dexamethasone Sod Phosphate [Decadron] 12 mg .ROUTE .STK-MED ONE
08/10/24 23:38
Dexamethasone Sod Phosphate [Decadron] 20 mg .ROUTE .STK-MED ONE
08/11/24 02:33
HYDROmorphone [Dilaudid] 4 mg TUBE NOW STA
08/11/24 02:34
Admit/Transfer Patient As Directed
Co-Sign Provider:
Level of Care: Inpatient admission
Assign to:: Telemetry
Physician / Group: [facility]
Diagnosis: Asthma Exacerbation, Tachycardia
Reason for Telemetry: Arrhythmia
Date to Stop Telemetry: 08/14/24
Time to Stop Telemetry: 11:00
Reason for Hospitalization: Asthma Exacerbation, Tachycardia
Expected length of stay greater than two midnights?: Yes
ELOS- Estimated Length of Stay in days: 2
I certify the patient meets the requirements for IP care: Yes
08/11/24 02:36
PRN Pain Medication Management As Directed
May give lesser potent ordered pain med per pt: Yes
preference::
Protocol:: Medication orders for pain may be administered in a
manner that supports deferring to patient preference
when the pt is:
- Requesting an ordered lesser potent pain medication.
Least to most potent pain medications are defined
as: acetaminophen < NSAID < tramadol < opioids
(morphine, oxycodone, hydromorphone).
- Requesting a lesser dose of the same medication IF
ORDERED.
- Requesting a less intrusive route of administration
if both routes are prescribed by the provider (PO <
IV).
08/11/24 02:39
Code Status As Directed
Resuscitation Status: Full Code
08/11/24 03:00
Flush (0.9% Sodium Chloride) [Flush (Nss)] See Dose Instructions IV PER PROTOCOL
08/11/24 04:28
0.9% Sodium Chloride 1000 ml [Nss] 1,000 ml IV 150 mls/hr
Acetaminophen [Tylenol Oral Solution] 650 mg TUBE Q4HPRN PRN
Albuterol Nebs [Ventolin Nebules] 2.5 mg INH R Q4HPRN PRN
METOCLOPRAMIDE [REGLAN ORAL SOLUTION ] 5 mg TUBE TIDPRN PRN spasms
Melatonin 6 mg TUBE HSPRN PRN sleep
Sennosides [Senna Syrup] 8.8 mg TUBE BIDPRN PRN constipation
Tizanidine [Zanaflex] 6 mg TUBE Q8H PRN muscle spasms
08/11/24 04:28
Consult Notification Routine
Specialty to Notify: Pulmonary
Date consulting provider notified: 08/11/24
Time consulting provider notified: 09:17
Notified:: Provider
Comment: TT to Dr Martinez
DIETARY IP CONSULT Routine
Reason for Consult: Tube feeds
PULMONARY CONSULT Routine
Consulting Provider: Kaushik Guzman
Was physician already notified: No
Reason for consult: Asthmatic Bronchitis, Chronic Aspiration / Esophageal Atresia
Activity As Directed
Activity Level: Ambulate
With Assistance
EKG with chest pain [ECG as needed] As Directed
ECG as needed for:: Chest Pain
Gastrointestinal Tubes As Directed
Type: Gastrostomy
To suction?: No
To straight drainage/gravity?: Yes
Irrigate tube?: Yes
Irrigant: Tap Water
Frequency: Q4H
Amount in mls: 30
Irrigation Directions: Irrigate Q4H and PRN
I/O [Intake/ Output] As Directed
Frequency: Per unit guidelines
Precautions As Directed
Type of Precautions: Aspiration
Contact
Vital Signs As Directed
Frequency: Per unit guidelines
Weight As Directed
Frequency: Daily
Bipap [RESP] Routine
Patient to use own unit?: No
Inspiratory Pressure (cm H2O): 18
Expiratory Pressure (cm H2O): 6
Instructions: HS and PRN
Chest PT [Rx Chest Pt] [RESP] Routine
Special Instructions: BID
Oxygen Therapy [O2 Therapy] [RESP] Routine
Titrate/Wean O2 to maintain O2 sat greater than (%): 94
DX Deep Vein Thrombosis Video Routine
08/11/24 05:43
Basic Metabolic Panel IN AM
Complete Blood Count/No Diff IN AM
08/11/24 Breakfast
NPO
Allow oral meds: Yes
Allow clear liquids: Sips of Clears
Ondansetron HCl [Zofran] 4 mg TUBE Q6H
08/11/24 08:00
Alprazolam [Xanax] 1 mg TUBE TID@0000,0800,1600
Aprepitant [Emend] 40 mg TUBE DAILY
Budesonide/Formoterol 160/4.5 [Symbicort 160/4.5 Mcg Inhaler] 2 puff INH R BID
Cholecalciferol [D--BILLY (Vitamin D3)] 10 mcg TUBE DAILY
Cyclobenzaprine HCl [Flexeril] 15 mg TUBE TID
Cyproheptadine HCl [Periactin] 4 mg TUBE QID@08,12,16,20
Dicyclomine [Bentyl 10Mg/5Ml Syrup] 10 mg TUBE QID@0000,0800,1200,1800
FAMOTIDINE /peds [PEPCID /peds] 20 mg TUBE BID@0800,2000
Gabapentin [Neurontin] 1,200 mg TUBE DAILY
HYDROmorphone [Dilaudid] 8 mg TUBE Q4H
Ipratropium/Albuterol Sulfate [Duoneb] 3 ml INH R QID
Lansoprazole [Prevacid] 30 mg TUBE BID
Non-Formulary Item See Dose Instructions INH R TID
Prednisolone [Prelone] 10 mg TUBE DAILY
Ursodiol Suspension () [Ursodiol Suspension] 6 mg TUBE BID
ustekinumab [Stelara] See Dose Instructions SC MONTHLY
08/11/24 14:00
Gabapentin [Neurontin] 900 mg TUBE DAILY@1400
08/11/24 18:00
Enoxaparin Sodium [Lovenox] 40 mg SC QPM
08/11/24 20:00
naloxegol [Movantik] 6.25 mg TUBE DAILY
prucalopride [Motegrity] See Dose Instructions TUBE DAILY@1200
08/12/24 00:00
Cetirizine HCl [Zyrtec] 10 mg TUBE HS@0000
Gabapentin [Neurontin] 1,500 mg TUBE HS@0000
08/13/24 08:00
Scopolamine [Transderm-Scop] 1 patch TRANSDERM Q3D
08/14/24 11:00
DC Protocol for Telemetry ONCE
Abnormal Lab Results
08/10/24
21:09
MCHC 32.5 L g/dL
(33.0-37.0)
MPV 12.5 H fL
(7.4-10.4)
Absolute Neuts (auto) 7.4 H 10^3/uL
(1.4-6.5)
Absolute Monos (auto) 0.7 H 10^3/uL
(0.1-0.6)
Creatinine 0.5 L mg/dL
(0.7-1.3)
ALT 134 H U/L
(0-50)
Alkaline Phosphatase 245 H U/L
(38-126)
08/10/24 21:09
08/10/24 21:09
Vital Signs
Initial and Last Documented VS:
Initial Vital Signs
Temp Pulse Resp BP Pulse Ox
98.2 F 131 20 132/101 96
08/10/24 17:23 08/10/24 17:23 08/10/24 17:23 08/10/24 17:23 08/10/24 17:23
Last Documented Vital Signs
Temp Pulse Resp BP Pulse Ox
98.3 F 111 18 134/97 98
08/12/24 07:15 08/12/24 07:15 08/12/24 07:15 08/12/24 07:15 08/12/24 07:15
MDM/Problems Addressed
MDM/Problems Addressed:
28-year-old male presenting to the emergency department with multiple concerns. He is concerned of worsening shortness of breath and wheezing. He does have diffuse respiratory expiratory wheezing. Was started on additional steroids as well as
DuoNeb. Was recently treated for similar and is currently tapering on steroids. On arrival patient significantly tachycardic. He was also concerned that he could be dehydrated with decreased urine output. Was given fluids with some slight
improvement of symptoms and increased urine output. CT scan of the abdomen without emergent findings x-ray without evidence of pneumonia. Patient continually tachycardic with significant wheezing and pulse ox in the low 90s concerning this plan to
admit for further treatment and assessment.
*Critical Care Note
Total Time (30-74mins, 75-104mins- exclusive of procedures): Not Applicable
ED Attending Note
-
Portions of this chart may have been created with voice recognition software.� Occasional wrong word or��sound alike� substitutions may have occurred due to the inherent limitations of voice recognition software.
Discharge Plan
Departure
Patient Disposition: Admit
Date of Disposition: 08/11/24
Time of Disposition: 01:00
Admit to: Med/Surg
Admit to doctor: [facility]
Presentation/result/management discussed w/ accepting MD/DO: Hospitalist
Patient with high blood pressure during this ER visit?: No
Condition: Good
Covid-19: Not Applicable
Discharge Problem:
Asthma exacerbation, Leaking PEG tube
Interventions
Interventions:
*Risk Screen - Suicide Last Done: 08/10/24 17:23
*General Assessment Last Done: 08/10/24 17:23
*Neglect/Abuse Screening Last Done: 08/10/24 17:23
*ED- Fall Risk Assessment Last Done: 08/11/24 01:27
*ED COVID-19 Vaccine History Last Done: 08/11/24 01:27
*Nursing Disposition Last Done: 08/11/24 04:28
ED- Cardiac Assessment Last Done: 08/10/24 22:05
ED- Neurological Assessment Last Done: 08/10/24 22:05
ED- Pulmonary Assessment Last Done: 08/10/24 22:05
Discharge Date and Time
Discharge Date/Time: 08/11/24 04:29
--- NOTE | 2024-08-11 02:52 | HPS.HSE ---
Family Physician
-
Family Physician: Rudy Snyder
Chief Complaint
-
Decreased urine output / J-tube leak
History of Present Illness
Patient is a 28y M with long and complicated PMH significant for Crohn's disease, esophageal atresia and J-tube dependence who presents to ED for evaluation of leakage at J-tube site and decreased urine output. Patient has noted intermittent
leaking at J-tube site / around bumper for some time now. He noted significant leakage this AM while administering his usual tube feeds. He noted that he produced only 200cc of dark colored urine throughout the day and felt that he may be becoming
dehydrated. He presented to the ED for further evaluation and treatment. Patient received IVF in the ED.
While here, he noted that his pulse was elevated and that his SpO2 was in the low-mid 90s.
He requested a nebulizer treatment. ED exam reported significant diffuse wheezing and patient was referred for hospitalization.
Patient was last hospitalized 07/21 - 07/27 for tracheitis / asthma. See notes from that hospitalization for details.
He completed 7 days of meropenem and was discharged on prednisone taper. He has one day remaining of 10mg dose.
Medical History
Past Medical History
Past Medical History: Reports Other
Additional Past Medical History:
Crohn's disease
Esophageal Atresia
Tracheoesophageal Fistula
Asthma / Chronic Bronchitis
Pseudomonas colonization of sputum
Vocal Cord Paralysis
GERD
Chronic Pain Syndrome
Chronic Opioid Dependence
Past Surgical History: Reports Other
Additional Past Surgical History:
s/p tracheoesophageal fistula repair
s/p trach and removal
s/p esophagostomy
G tube / J-tube placement (complicated device placement at [facility])
Laryngeal Cleft Repair
Bilateral Hip Fracture ORIF
Left Shoulder Surgery
Social History
Tobacco: Non-smoker
Living: With Family
Family History
Family History: Other
Allergies / Home Medications
Allergies reflects when Allergies were last updated in mii.
Home Medications with original date entered in mii
Allergy/Medication List:
Allergies
Allergy/AdvReac Type Severity Reaction Status Date / Time
lactose (Lactose) Allergy Severe Hives Verified 08/10/24 17:28
sodium bicarbonate (Sodium Allergy Severe Hives Verified 08/10/24 17:28
Bicarbonate)
vancomycin Allergy Severe Renal Verified 08/10/24 17:28
failure
cefdinir Allergy Rash Verified 08/10/24 17:28
levofloxacin (From Levaquin) Allergy joint pain Verified 08/10/24 17:28
NSAIDS (Non-Steroidal Allergy Unknown Verified 08/10/24 17:28
Anti-Inflamma
omeprazole Allergy Unknown Verified 08/10/24 17:28
theophylline Allergy Unknown Verified 08/10/24 17:28
Home Medications
cetirizine 1 mg/mL oral solution (Children's Cetirizine) 10 mg feeding tube HS Allergies 02/27/10
famotidine 40 mg/5 mL (8 mg/mL) oral suspension 20 mg feeding tube BID@0800,2000 Gastrointestinal Issue ##0 03/13/20
sennosides 8.8 mg/5 mL oral syrup (senna) 8.8 mg feeding tube BIDPRN PRN constipation ##0 03/13/20
cholecalciferol (vitamin D3) 10 mcg/mL (400 unit/mL) oral drops (D-Vi-Samanta) 10 mcg feeding tube DAILY Supplement ##0 06/29/21
gabapentin 250 mg/5 mL (5 mL) oral solution 1,200 mg feeding tube DAILY neuropathic pain 06/29/21
lansoprazole 30 mg delayed release,disintegrating tablet (Prevacid SoluTab) 30 mg feeding tube BID Gastrointestinal issue 06/29/21
prucalopride 2 mg tablet (Motegrity) 2 mg feeding tube DAILY@1200 Constipation 06/29/21
Ursodiol 50mg/Ml 6 ml feeding tube BID Gallstone Dissolution Age 0507/21/24
acetaminophen 160 mg/5 mL (5 mL) oral solution 1,000 mg feeding tube BIDPRN PRN mild pain 07/21/24
alprazolam 1 mg disintegrating tablet 1 mg feeding tube TID Mental Health/Anxiety 07/21/24
aprepitant 40 mg capsule 40 mg feeding tube DAILY Antiemetic; 07/21/24
budesonide-formoterol HFA 160 mcg-4.5 mcg/actuation aerosol inhaler (Symbicort) 2 inh inhalation R BID Lung/Breathing Issues 07/21/24
cyclobenzaprine 10 mg tablet 15 mg feeding tube TID Muscle Spasms 07/21/24
cyproheptadine 2 mg/5 mL oral syrup 4 mg feeding tube QID@08,12,16,20 Histamine H1 Antagonist; 07/21/24
dicyclomine 10 mg/5 mL oral solution 10 mg feeding tube Q6H Anticholinergic Agent 07/21/24
gabapentin 250 mg/5 mL (5 mL) oral solution 1,500 mg feeding tube HS neuropathic pain 07/21/24
gabapentin 250 mg/5 mL oral solution 900 mg feeding tube DAILY@1400 neuropathic pain 07/21/24
hydromorphone 1 mg/mL oral liquid 8 mg feeding tube Q4H Pain 07/21/24
ipratropium bromide 0.02 % solution for inhalation 2.5 ml inhalation R TID Lung/Breathing Issues 07/21/24
melatonin 3 mg tablet 6 mg feeding tube HSPRN PRN sleep 07/21/24
metoclopramide HCl 5 mg/5 mL oral solution 5 mg feeding tube TIDPRN PRN spasms 07/21/24
naloxegol 12.5 mg tablet (Movantik) 6.25 mg PO DAILY feeding tube OIC 07/21/24
ondansetron HCl 4 mg/5 mL oral solution 4 mg feeding tube Q6H Gastrointestinal Issue 07/21/24
scopolamine base 1 mg over 3 days transdermal patch 1 patch transdermal Q3D Anticholinergic Agent 07/21/24
sodium chloride 7 % for nebulization 1 inh inhalation R TID Lung/Breathing Issues 07/21/24
tizanidine 2 mg tablet 6 mg feeding tube Q8H PRN muscle spasms 07/21/24
tobramycin 300 mg/5 mL in 0.225 % sodium chloride for nebulization 5 ml inhalation BID Lung/Breathing Issues 07/21/24
ustekinumab 90 mg/mL subcutaneous syringe (Stelara) 90 mg SC MONTHLY Antipsoriatic Agent 07/21/24
calcium carbonate 500 mg/5 mL (as calcium carb 1,250 mg/5 mL) oral suspension 500 mg PO BID 07/23/24
prednisone 5 mg/mL oral concentrate (Prednisone Intensol) 10 mg (2 mL) feeding tube DAILY #60 mL 07/28/24
Review of Systems
-
History Source: Patient
A 12 point ROS was completed and negative except as noted: Yes
Constitutional: Denies Fever or Chills
EENT: Denies Sore Throat
Respiratory: Reports Other (wheezing / congestion); Denies Cough or Trouble Breathing
Cardiac: Denies Chest Pain
Abdomen/GI: Reports Other (Leakage at J-tube site.); Denies Abdominal Pain, Nausea, Vomiting or Diarrhea
: Reports Dark Urine and Other (Decreased urine output.)
Neurological: Denies Headache
Physical Exam
Vital Signs
Vital Signs
Temp Pulse Resp BP Pulse Ox
98.1 F 128 20 141/97 95
08/10/24 19:28 08/11/24 02:00 08/11/24 02:00 08/11/24 02:00 08/11/24 02:00
Physical Exam
General: Other (28y M in no acute distress.)
HEENT: Moist mucous membranes, PERRLA and Other (R salivary fistula / pouch with clear discharge.)
Respiratory: Other (Coarse rhonchi at bilateral bases. No wheezing.)
Cardiac: S1/S2 and Tachycardia; No Murmur
GI: Soft, Non Tender, Non Distended, Normal Bowel Sounds and Other (R sided J-tube with dual ports. No evident discharge / drainage at present. L sided G-tube to gravity.)
Musculoskeletal: No Clubbing, No Cyanosis and No Edema
Neuro: AO x 3
Laboratory Results
-
08/10/24 21:09
08/10/24 21:09
Laboratory Results
Total Bilirubin 0.9 mg/dl (0.2-1.3) 08/10/24 21:09
AST 59 U/L (17-59) 08/10/24 21:09
ALT 134 U/L (0-50) H 08/10/24 21:09
Alkaline Phosphatase 245 U/L (38-126) H 08/10/24 21:09
Impression/Plan
-
A/P: Patient is a 28y M with complicated PMH including asthma, tracheitis, Crohn's s/p multiple surgeries, etc who presents to ED complaining of J-tub leakage and decreased urine output.
J-Tube Malfunction
Decreased Urine Output
Sinus Tachycardia
- Admit for further evaluation and treatment.
- Sounds as if some intermittent J-tube leaking has been the norm for some time.
- No gross leaking at the time of my exam.
- Will ask GI to evaluate.
- Monitor for any evidence of leakage during stay.
- Resume usual tube feeds / Dietary evaluation.
- IVF support for now and follow for improvement in heart rates and urine output with volume correction.
Asthmatic Bronchitis
- Coarse breath sounds bilaterally which - again - sounds like recent baseline.
- No wheezing at the time of my examination.
- Afebrile, CXR without new findings.
- Would observe off of any new abx for now.
- Continue current mucolytic / clearance measures.
- Pulmonary evaluation for any additional recommendations.
- Patient notes that he wants to take 'enough' abx to clear this up - but advised that the issue is likely not that straightforward.
Esophageal Atresia s/p Esophagectomy / External Pouch
Crohn's Disease
Tracheoesophageal Fistula
Laryngeal Cleft
- Multiple prior surgeries.
- Routine management of secretions via esophagostomy.
- G-tube to drainage / venting.
- All meds / nutrition / etc via J-tube (see above).
Chronic Pain Syndrome
Chronic Opioid Dependence
- Stable. Continue usual outpatient med regimen without changes.
- Continue usual bowel regimen.
DVT Prophylaxis: Lovenox
Code Status: Full
[2024-08-11] MEDS: DILAUDID 4 MG TUBE (03:04)
[2024-08-11 04:37] LABS: Urine Albumin Negative (Neg - Trace); Urine Bilirubin Negative (Negative); Urine Character Clear (Clear); Urine Color Yellow; Urine Glucose Negative (Negative); Urine Ketone Negative (Negative); Urine Leukocyte Negative (Negative); Urine Nitrite Negative (Negative); Urine Occult Blood Negative (Negative); Urine Urobilinogen Negative (Neg - 1+)
[2024-08-11] MEDS: NSS 1000 IV ×3 (05:44→20:47)
[2024-08-11] MEDS: ZOFRAN 4 MG TUBE ×4 (05:47→23:30)
[2024-08-11 06:09] LABS: Hematocrit 43.8 % (39.0-52.0); Hemoglobin 14.4 g/dL (13.0-18.0); Mean Corp Hgb Conc. 32.9 g/dL (33.0-37.0); Mean Corpuscular Hgb 29.6 pg (27.0-31.0); Mean Corpuscular Volume 90.1 fL (80.0-94.0); Mean Platelet Volume 12.8 fL (7.4-10.4); Platelet Count 144 10^3/uL (130-400); Red Blood Cell Count 4.86 10^6/uL (4.70-6.10); Red Cell Dist. Width 14.1 % (11.5-14.5); White Blood Cell Count 8.8 10^3/uL (4.8-10.8)
[2024-08-11 06:33] LABS: Blood Urea Nitrogen 10 mg/dl (9-20); Calcium 9.7 mg/dl (8.4-10.2); Carbon Dioxide 21 mmol/L (22-30); Chloride 108 mmol/L (98-107); Estimated Creatinine Clearance > 125 ml/min; Glucose 223 mg/dl (70-99); Potassium 4.9 mmol/L (3.5-5.1); Sodium 141 mmol/L (135-145); eGFR > 60.00
[2024-08-11] MEDS: DUONEB 3 ML INH ×4 (09:14→19:30)
[2024-08-11] MEDS: SYMBICORT 160/4.5 MCG INHALER 2 PUFF INH (09:15)
[2024-08-11] MEDS: DILAUDID 8 MG TUBE ×5 (09:27→23:30)
[2024-08-11] MEDS: PEPCID neonatal/peds 20 MG TUBE ×2 (09:42→20:26)
[2024-08-11] MEDS: D-VI-SOL (Vitamin D3) 10 MCG TUBE (09:42)
[2024-08-11] MEDS: PRELONE 10 MG TUBE (09:42)
[2024-08-11] MEDS: REGLAN 5 MG TUBE ×2 (09:43→17:59)
[2024-08-11] MEDS: TYLENOL ORAL SOLUTION 650 MG TUBE ×2 (09:43→23:31)
[2024-08-11] MEDS: NEURONTIN 1200 MG TUBE (09:43)
[2024-08-11] MEDS: ZANAFLEX 6 MG TUBE ×2 (09:44→23:33)
[2024-08-11] MEDS: SENNA SYRUP 8.8 MG TUBE (09:44)
[2024-08-11] MEDS: FLEXERIL 15 MG TUBE ×3 (09:44→23:30)
[2024-08-11] MEDS: EMEND 40 MG TUBE (09:45)
[2024-08-11] MEDS: PREVACID 30 MG TUBE ×2 (09:45→20:07)
[2024-08-11] MEDS: PERIACTIN 4 MG TUBE ×4 (09:59→20:45)
[2024-08-11] MEDS: BENTYL 10 MG TUBE ×4 (09:59→23:33)
[2024-08-11] MEDS: XANAX 1 MG TUBE ×3 (09:59→23:30)
[2024-08-11] MEDS: MIRALAX 17 GRAMS TUBE (10:36)
[2024-08-11] MEDS: URSODIOL 300 MG TUBE ×2 (10:37→20:29)
--- NOTE | 2024-08-11 10:55 | CON.PUL ---
Addendum entered and electronically signed by Jeff Mora MD 08/11/24 11:39:
Correction: Tobramycin will be held for now.
Original Note:
Consultation
Consultation Request
Date/Time Consultation Requested: 08/11/2024
Date/Time Consultation Performed: 08/11/2024
Requesting Provider: Dr. Harmon
Performing Provider: Dr. Jeff Martinez
Reason for Consultation: Acute respiratory sufficiency-asthmatic bronchitis
Medical History
-
Chief Complaint: Shortness of breath
History of Present Illness:
28-year-old male with a history of Crohn's disease status post tracheoesophageal fistula repair, trach with subsequent removal, esophagectomy status post J-tube placement as well as a history of asthma, recent pneumonia, recent discharge from the
hospital in mid July for sepsis and shortness of breath..
Patient went over multiple recent hospitalizations including [facility] in [place] and recently difficult to control asthma with recurrent infections and wheezing. Apparently improved temporarily and worsens again.
Continues to have some chest congestion but overall improved compared to prior.
He was found not to be bronchospastic in the ED. Currently not bronchospastic.
He feels extremely tired
This time admitted to the emergency room for leakage around the J-tube site and decreased urinary output.
We were consulted on 08/11/2024 for additional recommendation regarding his difficult to treat asthmatic bronchitis.
-
He denies any chest pain, abdominal pain, tolerating tube feeds and is chronic back pain.
-
Patient was last hospitalized 07/21 - 07/27 for tracheitis / asthma. Recommended to stay on 10 mg of prednisone.
Past Medical History
Past Medical History: None (Crohn's disease on Stelara. Tracheoesophageal fistula repair age 3. Tracheal cleft repair age 3. GJ tube placement. Laryngeal cleft repair 2016. 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 Vocal cord paralysis. GERD.
Asthma. Chronic abdominal and back pain. History of trach. Bilateral hip fra)
Past Surgical History: None (Left rotator cuff repair.)
Social History
Tobacco: Non-smoker
Alcohol: None
Drug: None
Personal: Single
Living: With Family
Occupational Exposures: No known asbestos exposure
Environmental Exposures: No known tuberculosis exposure
Family History
Family History: Reviewed & Not Pertinent
Allergies / Home Medications
Allergies
Allergy/AdvReac Type Severity Reaction Status Date / Time
lactose (Lactose) Allergy Severe Hives Verified 08/10/24 17:28
sodium bicarbonate (Sodium Allergy Severe Hives Verified 08/10/24 17:28
Bicarbonate)
vancomycin Allergy Severe Renal Verified 08/10/24 17:28
failure
cefdinir Allergy Rash Verified 08/10/24 17:28
levofloxacin (From Levaquin) Allergy joint pain Verified 08/10/24 17:28
NSAIDS (Non-Steroidal Allergy Unknown Verified 08/10/24 17:28
Anti-Inflamma
omeprazole Allergy Unknown Verified 08/10/24 17:28
theophylline Allergy Unknown Verified 08/10/24 17:28
Home Medications
�Medication �Instructions �Recorded �Confirmed �Last Taken �Type
cetirizine 1 mg/mL oral solution 10 mg feeding tube HS Allergies 02/27/10 08/11/24 05/07/20 History
(Children's Cetirizine)
famotidine 40 mg/5 mL (8 mg/mL) 20 mg feeding tube BID@0800,2000 03/13/20 08/11/24 05/07/20 History
oral suspension Gastrointestinal Issue ##0
sennosides 8.8 mg/5 mL oral syrup 8.8 mg feeding tube BIDPRN PRN 03/13/20 08/11/24 05/07/20 History
(senna) constipation ##0
cholecalciferol (vitamin D3) 10 10 mcg feeding tube DAILY 06/29/21 08/11/24 Unknown History
mcg/mL (400 unit/mL) oral drops Supplement ##0
(D-Vi-Samanta)
gabapentin 250 mg/5 mL (5 mL) oral 1,200 mg feeding tube DAILY 06/29/21 08/11/24 Unknown History
solution neuropathic pain
lansoprazole 30 mg delayed 30 mg feeding tube BID 06/29/21 08/11/24 Unknown History
release,disintegrating tablet Gastrointestinal issue
(Prevacid SoluTab)
prucalopride 2 mg tablet 2 mg feeding tube DAILY@1200 06/29/21 08/11/24 Unknown History
(Motegrity) Constipation
Ursodiol 50mg/Ml 6 ml feeding tube BID Gallstone 07/21/24 08/11/24 Unknown History
Dissolution Age
acetaminophen 160 mg/5 mL (5 mL) 1,000 mg feeding tube BIDPRN PRN 07/21/24 08/11/24 Unknown History
oral solution mild pain
alprazolam 1 mg disintegrating 1 mg feeding tube TID Mental 07/21/24 08/11/24 Unknown History
tablet Health/Anxiety
aprepitant 40 mg capsule 40 mg feeding tube DAILY 07/21/24 08/11/24 Unknown History
Antiemetic;
budesonide-formoterol HFA 160 2 inh inhalation R BID 07/21/24 08/11/24 Unknown History
mcg-4.5 mcg/actuation aerosol Lung/Breathing Issues
inhaler (Symbicort)
cyclobenzaprine 10 mg tablet 15 mg feeding tube TID Muscle 07/21/24 08/11/24 Unknown History
Spasms
cyproheptadine 2 mg/5 mL oral syrup 4 mg feeding tube QID@08,12,16,20 07/21/24 08/11/24 Unknown History
Histamine H1 Antagonist;
dicyclomine 10 mg/5 mL oral 10 mg feeding tube Q6H 07/21/24 08/11/24 Unknown History
solution Anticholinergic Agent
gabapentin 250 mg/5 mL (5 mL) oral 1,500 mg feeding tube HS 07/21/24 08/11/24 Unknown History
solution neuropathic pain
gabapentin 250 mg/5 mL oral 900 mg feeding tube DAILY@1400 07/21/24 08/11/24 Unknown History
solution neuropathic pain
hydromorphone 1 mg/mL oral liquid 8 mg feeding tube Q4H Pain 07/21/24 08/11/24 Unknown History
ipratropium bromide 0.02 % 2.5 ml inhalation R TID 07/21/24 08/11/24 Unknown History
solution for inhalation Lung/Breathing Issues
melatonin 3 mg tablet 6 mg feeding tube HSPRN PRN sleep 07/21/24 08/11/24 Unknown History
metoclopramide HCl 5 mg/5 mL oral 5 mg feeding tube TIDPRN PRN spasms 07/21/24 08/11/24 Unknown History
solution
naloxegol 12.5 mg tablet (Movantik) 6.25 mg PO DAILY feeding tube OIC 07/21/24 08/11/24 Unknown History
ondansetron HCl 4 mg/5 mL oral 4 mg feeding tube Q6H 07/21/24 08/11/24 Unknown History
solution Gastrointestinal Issue
scopolamine base 1 mg over 3 days 1 patch transdermal Q3D 07/21/24 08/11/24 07/21/24 History
transdermal patch Anticholinergic Agent
sodium chloride 7 % for 1 inh inhalation R TID 07/21/24 08/11/24 Unknown History
nebulization Lung/Breathing Issues
tizanidine 2 mg tablet 6 mg feeding tube Q8H PRN muscle 07/21/24 08/11/24 Unknown History
spasms
tobramycin 300 mg/5 mL in 0.225 % 5 ml inhalation BID Lung/Breathing 07/21/24 08/11/24 07/14/24 History
sodium chloride for nebulization Issues
ustekinumab 90 mg/mL subcutaneous 90 mg SC MONTHLY Antipsoriatic 07/21/24 08/11/24 4 Days Ago History
syringe (Stelara) Agent ~07/17/24
calcium carbonate 500 mg/5 mL (as 500 mg PO BID 07/23/24 08/11/24 Unknown History
calcium carb 1,250 mg/5 mL) oral
suspension
prednisone 5 mg/mL oral 10 mg (2 mL) feeding tube DAILY 07/28/24 08/11/24 Unknown Rx
concentrate (Prednisone Intensol) #60 mL
Review of Systems
-
History Source: Patient
All other systems: Negative unless noted
Vitals / Labs / Diagnostic Testing
Vital Signs
Temp Pulse Resp BP Pulse Ox
98.5 F 118 18 155/106 95
08/11/24 04:30 08/11/24 09:26 08/11/24 09:26 08/11/24 04:30 08/11/24 09:26
Lab Data
08/11/24 05:43
08/11/24 05:43
Diagnostic Testing:
Physical Exam
-
HEENT: Normocephalic
Cardiovascular: S1/S2
Respiratory: Rhonchi (Bilaterally)
GI: Soft and Non Distended
Neurology: Awake, Alert and AO x 3
Skin: Warm
General: Comfortable
Assessment
-
28-year-old male with a history of Crohn's disease status post tracheoesophageal fistula repair, trach with subsequent removal, esophagectomy status post J-tube placement as well as a history of asthma recently diagnosed with pneumonia. Discharged
from the hospital 07/27/2024 with diarrhea and asthma exacerbation.
Now readmitted with PEG tube dysfunction/malfunction-also rhonchi on exam. We were consulted on 08/11/2024 for evaluation regarding his chronic asthma symptoms.
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
Recovering from acute exacerbation-discharge from the hospital 07/2024.
Asthma -not in acute exacerbation.
-
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
Conditions present prior to admission:
Patient was last hospitalized 07/21 - 07/27 for tracheitis / asthma.
Crohn's disease on Stelara.
Tracheoesophageal fistula repair age 3.
Tracheal cleft repair age 3.
GJ tube placement.
Laryngeal cleft repair 2016.
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
Vocal cord paralysis.
GERD.
Asthma.
Right upper lobe 5.5 cm bleb/bulla
Chronic abdominal and back pain.
History of trach. Bilateral hip fracture. Left rotator cuff repair.
Plan
Complex past medical history-extensive records reviewed.
-
This admission originally for PEG tube function.
Given chest congestion which appears to be chronic we were consulted on 08/11/2024 given complexity of his pulmonary history with recurrent asthma exacerbations and difficulty completely clearing respiratory symptoms.
Recurrent asthma exacerbations due to inability to completely overcome infections and asthma exacerbations.
-
Currently not bronchospastic: Rhonchi bilaterally which likely reflects recovering from recent admission. Discharged from the hospital 07/27/2024.
Currently on room air
Does not appear to be in distress.
Afebrile without leukocytosis. Completed a course of meropenem during last admission.
Chest x-ray 08/10/2024:Air density projecting over the mediastinum compatible with bowel within the anterior mediastinum from tracheoesophageal fistula repair.
No radiographic evidence for pneumonia or pulmonary edema.
MRSA screen negative 07/21/2024
-
No evidence for ongoing exacerbation.
Hold Symbicort.
Will add Pulmicort twice a day while in the hospital.
Did receive 1 dose of 10 mg of dexamethasone in the emergency room for? Wheezing
No additional high dose of corticosteroids necessary.
Continue DuoNebs 4 times a day while in the hospital to aid with secretion clearance
Mucolytic's continues - mucinex
Tracheotomy care-deep suctioning
Vest therapy will be started
If unable to clear secretions will start 3% saline
-
Aspiration precautions-has esophagectomy and aspiration would be only oral contents.
-
Usually on tobramycin nebulizers 300 mg twice daily restart while in the hospital-chronic Pseudomonas colonization-with help to reduce exacerbations. Regimen has been set up by engineering documentation specialist at [facility] [place].
No documentation of Pseudomonas respiratory cultures at [facility].
-
Prior discussions:
Continue steroids taper, now on prednisone-mother reports in the past when he was on steroids a lot-they had to slowly reduce it because he had 'cortisol issues'-suspect adrenal insufficiency.
Consider additional Biologics if cannot come off steroids-would need to discuss with GI as patient on biologic- Stelara -IL 12/IL 23, inhibitor for Crohn's disease
If Biologics for asthma are considered, could try Dupixent although he does not have significant eosinophilia. His absolute eosinophils were 200 on 04/18/2024, and with his systemic steroid use for asthma which does make him feel better, he would
still qualify for Dupixent
-
Dr. Santana discussed briefly the potential need for a port placement as patient reports 'running out of veins' and likely to have repetitive hospitalizations
We have discussed other temporary measures likely suppressive abx regiment but this may increase his resistance considerably and routine bronch wash outs
He feels his overall QoL is being affected by his frequent hospitalizations
DVT prophylaxis-on Lovenox.
Nutrition-on tube feeds.
Physical therapy as tolerated
Follow up Outpatient pulmonary follow-up at [facility]-would also like to follow-up locally
We are happy to manage locally, had been following with Dr Bond at [place] when he aged out of [facility] [facility]
Diagnostic data:
Chest x-ray 08/10/2024: No acute abnormalities
Chest x-ray 02/17/2019-lungs clear
Chest x-ray-Limited evaluation as a result of prior esophagectomy, cannot rule out patchy right suprahilar pneumonia
Chest x-ray 12/20/2021-NAD, multiple bullae over right medial lung unchanged
Chest x-ray 07/21/2024-NAD
CT chest 12/20/2021-no pulmonary embolism, moderate left lower lobe pneumonia, stable postoperative changes consistent with prior tracheoesophageal fistula repair, 5.5 cm bleb lower medial aspect right upper lobe
CT chest 07/21/2024-no acute abnormalities identified in the chest, stable chronic changes from prior tracheoesophageal fistula repair, large bleb bulla lower medial aspect right upper lobe measuring 6.1 cm
-----
Total time spent today was 76 minutes for this encounter. Time includes reviewing laboratory test/imaging results, reviewing pertinent medical records, obtaining and reviewing medical history, performing an appropriate exam, ordering medications,
tests and procedures. Time also includes documentation of this encounter, coordinating patient care and communicating with other healthcare professionals. Total time does not include separately billed tests performed on this date of service.
--- NOTE | 2024-08-11 11:07 | CON.GS ---
Consultation
-
Date/Time Consultation Requested: 08/11/2024
Date/Time Consultation Performed: 08/11/2024
Medical History
-
Chief Complaint: Tube leakage
History of Present Illness:
Patient is a 28 yo M with a complex PMH and PSH including Crohn's disease s/p SBR, T-E fistula s/p repair with colonic interposition, s/p tracheostomy and removal, s/p esophagostomy with spit fistula, s/p multiple venting G-tube's and J-tube's.
History of her history is somewhat unclear as all of his prior operations and management have been performed at [facility] or [facility]. His most recent procedure was in March 2024 at [facility] involving an exploratory laparotomy, lysis
of adhesions, reported resection of SB ulcerations/strictures with 'Kina-en-Y' reconstruction and reciting of his J-tube. He has noted intermittent drainage from his J-tube > G-tube. These symptoms have been present for weeks now, worse just prior
to admission. Amount fluctuates. Since admission output has been minimal. He does note some intermittent issues with abdominal bloating and distention. No nausea or vomiting. He does take MiraLAX and stool softeners, of which he recently stopped
due to more liquid stools. He typically has 6-7 loose bowel movements a day. No reports of worsening bloody or mucousy stools. He is on tube feeding 01/10. He was previously on TPN up until 02/2024 in preparation for his above noted procedure.
Of note, he was recently admitted to from 07/21 to see 07/27 for management of tracheitis/asthma. He was discharged on meropenem and a Prednisone taper. He states that his pulmonary status is worse since discharge, but is not his primary
complaint.
Past Medical History
Past Medical History: Asthma, GERD and Other (Disease, TEF with esophageal atresia)
Past Surgical History: Bowel Resection (SBR, colonic interposition, SPARKLE with SBR and Kina-en-Y reconstruction) and Other (Multiple G-tubes and J-tubes, tracheostomy, esophagostomy)
Social History
Tobacco: Non-Smoker
Alcohol: None
Drug: None
Living: With Family
Family History
Family History: Reviewed & Not Pertinent
Allergies / Home Medications
Allergy/AdvReac Type Severity Reaction Status Date / Time
lactose (Lactose) Allergy Severe Hives Verified 08/10/24 17:28
sodium bicarbonate (Sodium Allergy Severe Hives Verified 08/10/24 17:28
Bicarbonate)
vancomycin Allergy Severe Renal Verified 08/10/24 17:28
failure
cefdinir Allergy Rash Verified 08/10/24 17:28
levofloxacin (From Levaquin) Allergy joint pain Verified 08/10/24 17:28
NSAIDS (Non-Steroidal Allergy Unknown Verified 08/10/24 17:28
Anti-Inflamma
omeprazole Allergy Unknown Verified 08/10/24 17:28
theophylline Allergy Unknown Verified 08/10/24 17:28
�Medication �Instructions �Recorded �Confirmed �Type
cetirizine 1 mg/mL oral solution 10 mg feeding tube HS Allergies 02/27/10 08/11/24 History
(Children's Cetirizine)
famotidine 40 mg/5 mL (8 mg/mL) 20 mg feeding tube BID@0800,2000 03/13/20 08/11/24 History
oral suspension Gastrointestinal Issue ##0
sennosides 8.8 mg/5 mL oral syrup 8.8 mg feeding tube BIDPRN PRN 03/13/20 08/11/24 History
(senna) constipation ##0
cholecalciferol (vitamin D3) 10 10 mcg feeding tube DAILY 06/29/21 08/11/24 History
mcg/mL (400 unit/mL) oral drops Supplement ##0
(D-Vi-Samanta)
gabapentin 250 mg/5 mL (5 mL) oral 1,200 mg feeding tube DAILY 06/29/21 08/11/24 History
solution neuropathic pain
lansoprazole 30 mg delayed 30 mg feeding tube BID 06/29/21 08/11/24 History
release,disintegrating tablet Gastrointestinal issue
(Prevacid SoluTab)
prucalopride 2 mg tablet 2 mg feeding tube DAILY@1200 06/29/21 08/11/24 History
(Motegrity) Constipation
Ursodiol 50mg/Ml 6 ml feeding tube BID Gallstone 07/21/24 08/11/24 History
Dissolution Age
acetaminophen 160 mg/5 mL (5 mL) 1,000 mg feeding tube BIDPRN PRN 07/21/24 08/11/24 History
oral solution mild pain
alprazolam 1 mg disintegrating 1 mg feeding tube TID Mental 07/21/24 08/11/24 History
tablet Health/Anxiety
aprepitant 40 mg capsule 40 mg feeding tube DAILY 07/21/24 08/11/24 History
Antiemetic;
budesonide-formoterol HFA 160 2 inh inhalation R BID 07/21/24 08/11/24 History
mcg-4.5 mcg/actuation aerosol Lung/Breathing Issues
inhaler (Symbicort)
cyclobenzaprine 10 mg tablet 15 mg feeding tube TID Muscle 07/21/24 08/11/24 History
Spasms
cyproheptadine 2 mg/5 mL oral syrup 4 mg feeding tube QID@08,12,16,20 07/21/24 08/11/24 History
Histamine H1 Antagonist;
dicyclomine 10 mg/5 mL oral 10 mg feeding tube Q6H 07/21/24 08/11/24 History
solution Anticholinergic Agent
gabapentin 250 mg/5 mL (5 mL) oral 1,500 mg feeding tube HS 07/21/24 08/11/24 History
solution neuropathic pain
gabapentin 250 mg/5 mL oral 900 mg feeding tube DAILY@1400 07/21/24 08/11/24 History
solution neuropathic pain
hydromorphone 1 mg/mL oral liquid 8 mg feeding tube Q4H Pain 07/21/24 08/11/24 History
ipratropium bromide 0.02 % 2.5 ml inhalation R TID 07/21/24 08/11/24 History
solution for inhalation Lung/Breathing Issues
melatonin 3 mg tablet 6 mg feeding tube HSPRN PRN sleep 07/21/24 08/11/24 History
metoclopramide HCl 5 mg/5 mL oral 5 mg feeding tube TIDPRN PRN spasms 07/21/24 08/11/24 History
solution
naloxegol 12.5 mg tablet (Movantik) 6.25 mg PO DAILY feeding tube OIC 07/21/24 08/11/24 History
ondansetron HCl 4 mg/5 mL oral 4 mg feeding tube Q6H 07/21/24 08/11/24 History
solution Gastrointestinal Issue
scopolamine base 1 mg over 3 days 1 patch transdermal Q3D 07/21/24 08/11/24 History
transdermal patch Anticholinergic Agent
sodium chloride 7 % for 1 inh inhalation R TID 07/21/24 08/11/24 History
nebulization Lung/Breathing Issues
tizanidine 2 mg tablet 6 mg feeding tube Q8H PRN muscle 07/21/24 08/11/24 History
spasms
tobramycin 300 mg/5 mL in 0.225 % 5 ml inhalation BID Lung/Breathing 07/21/24 08/11/24 History
sodium chloride for nebulization Issues
ustekinumab 90 mg/mL subcutaneous 90 mg SC MONTHLY Antipsoriatic 07/21/24 08/11/24 History
syringe (Stelara) Agent
calcium carbonate 500 mg/5 mL (as 500 mg PO BID 07/23/24 08/11/24 History
calcium carb 1,250 mg/5 mL) oral
suspension
prednisone 5 mg/mL oral 10 mg (2 mL) feeding tube DAILY 07/28/24 08/11/24 Rx
concentrate (Prednisone Intensol) #60 mL
Review of Systems
-
A 10 point review of systems was completed, and was negative except as per HPI.
Physical Exam
Vital Signs
Temp Pulse Resp BP Pulse Ox
98.5 F 118 18 155/106 95
08/11/24 04:30 08/11/24 09:26 08/11/24 09:26 08/11/24 04:30 08/11/24 09:26
08/10/24 08/11/24 08/12/24
06:59 06:59 06:59
Actual Weight 76 kg
Body Mass Index (BMI) 27.9
Lab Results
08/11/24 05:43
08/11/24 05:43
WBC 8.8 10^3/uL (4.8-10.8) 08/11/24 05:43
Hgb 14.4 g/dL (13.0-18.0) 08/11/24 05:43
Hct 43.8 % (39.0-52.0) 08/11/24 05:43
Plt Count 144 10^3/uL (130-400) 08/11/24 05:43
Abs Immat Gran (auto) 0.0 10^3/uL (0-0.05) 08/10/24 21:09
Neutrophils % 69.2 % (42.2-75.2) 08/10/24 21:09
Physical Exam
General: Well Developed, Well Nourished and No Apparent Distress
HEENT: Other (Spit fistula with bag in place)
Respiratory: Non Labored Respirations
Cardiac: Regular Rhythm
GI: Soft, Non Tender, Non Distended, Incisions (Well healed) and Other (G-tube (gravity) and J-tube (active feeding) with minimal skin irritation, stoma paste in place, bumper and balloon well seated, no active leakage)
Skin: Warm and Dry
Neuro: Nonfocal/Grossly Intact
Data Reviewed
-
CT Scan: Image Personally Visualized and interpreted and Report Reviewed by me
Labs: Labs Reviewed by me
Assessment / Plan
-
Patient is a 28 yo M with a complex PMH and PSH highlighted above currently with a venting G-tube and feeding J-tube who has had issues with drainage over the past several weeks
Difficult to determine the exact cause for his leakage, however, he most likely has intermittent episodes of a partial SBO to adhesions and potentially stricturing from his multiple prior operations and Crohn's disease which can intermittently cause
back pressure and leakage around his G-tube G-tube sites. Tubes appear to be well-positioned based on his CT scan with appropriate tension on exam. He recently stopped some of his bowel medications including MiraLAX which may have led to more of
her stool compounding this issue. Currently he is tolerating feeding with out any leakage. Recommend wound care consult to clean his insertion sites and reapply stoma paste. Continue to monitor symptoms over the next 24 hours. If worsening
leakage noticed would proceed with a contrasted SBFT study through his J-tube to confirm the above. Otherwise can be discharged with follow-up as needed down at [facility]. No plans for indication for surgical intervention All questions answered.
Please call with any questions or concerns.
-- Wound/stoma consult for local wound care to tube insertion sites
-- Continue with current TF
-- If continued issues with leakage would obtain a tube study and SBFT via the J-tube
-- Call with questions or concerns
--- NOTE | 2024-08-11 13:20 | CM ---
CM following re: discharge planning.
Reviewed pt's chart, met with pt.
Pt is a 28 year old male, admitted with primary dx of J-Tube Malfunction. PMH includes: Crohn's disease, s/p TE fistula repair, s/p trach and removal, s/p esophagostomy, s/p J-tube in place, history of asthma/COPD.
Pt reports he lives with parents 2SH, 2 steps to enter, ambulates with a walker, known to [facility]. Pt expressed his desire to return back home at discharge with resumptions of [facility] and family support. Pt stated his parents will transport home at
discharge.
PT and OT will evaluate the pt to determine a level of care at discharge.
PCP: Rudy Snyder
Pharmacy: [facility]
D/c plan: return back home at discharge with [facility] and family support. Parents to transport at discharge.
CM will follow with discharge plan updates as hospitalization progresses
[2024-08-11] MEDS: ROBITUSSIN 200 MG PO ×3 (13:37→23:31)
[2024-08-11] MEDS: NEURONTIN 900 MG TUBE (13:37)
--- NOTE | 2024-08-11 15:29 | W.PN.HOSP.TC ---
Today's Communication/Plan
-
Assessment / Plan
Assessment / Plan
General: No Apparent Distress, Comfortable and Conversant
HEENT: NormoCephalic, Moist mucous membranes, esophagectomy with pouch for secretions
Respiratory: Coarse breath sounds bilaterally (left greater than right), Non Labored Respirations
Cardiac: S1/S2 and Regular Rhythm; No Rub or Gallop
GI: Soft, Non Tender, J-tube draining appropriately
Musculoskeletal: No Edema, no deformity
Skin: Warm and dry
: NO Mcknight
Neuro: Awake, Alert, Nonfocal/grossly intact
Psych: Calm and Intact Judgment/Insight
Mr. Bowman is a 28-year-old male with a complicated medical history including Crohn's disease (status post bowel resection), tracheoesophageal fistula (repaired at age 3), tracheostomy (now discontinued), esophagostomy (with spit fistula),
multiple venting G-tube and G-tube, asthma, and tracheitis who presented with complaint of inappropriate drainage from around his GJ tube. His leakage had been ongoing for a few weeks prior to arrival. Apparently all of his surgical interventions
were performed at [facility] or [facility]. Most recently he underwent ex lap with lysis of adhesions, Kina-en-Y, and J-tube replacement in March 2024 at [facility]. Of note, he has had multiple admissions at this
institution most recently discharged 07/27 after treatment for tracheitis/asthma. He was treated at that time with meropenem and discharged on a prednisone taper. He has been admitted now for management of reportedly leaking GJ tube.
Leaking GJ tube:
- Tube was reportedly leaking per patient
- Appears to be functioning appropriately at this time
- Evaluated by general surgery, recommended restarting MiraLAX which patient had been taking at home recently stopped
- Continue medications and tube feeds via J-tube
- Wound care consulted for evaluation
- Otherwise medically stable, remains normotensive and afebrile, labs generally unremarkable
- Plan for discharge to home in the next 24 hours if clinical status remained stable
- Appreciate general surgery guidance
Asthma:
- Chronic, no evidence of acute exacerbation
- Pulmonology following, holding Symbicort, added Pulmicort twice daily while in the hospital
- No indication for steroids or antibiotics
- Continue mucolytics and nebulizers as needed to help with secretion clearance
- Vest therapy can add 3% saline if unable to adequately clear secretions
- Appreciate pulmonology guidance
DVT prophylaxis: Lovenox
CODE STATUS: Full code
Total time spent on today's encounter was 55 minutes
Anticipated Discharge: 24 - 48 hours
Subjective/Interval History
-
Date of Service: August 11, 2024
Patient was seen and examined at bedside this morning. No acute distress. Multiple chronic medical problems with no apparent acute issues. Reports leaking from J-tube which appears to be functioning appropriately at this time. Will monitor with
medication administration and tube feedings.
Objective Data
-
Labs:
Laboratory Results
08/11/24
05:43
WBC 8.8
Hgb 14.4
Hct 43.8
Plt Count 144
Sodium 141
Potassium 4.9
Chloride 108 H
Carbon Dioxide 21 L
BUN 10
Creatinine 0.4 L
Glucose 223 H
Calcium 9.7
Vital Signs:
Vital Signs
Temp Pulse Resp BP Pulse Ox
97.6 F 110 18 100/63 95
08/11/24 11:11 08/11/24 15:09 08/11/24 15:09 08/11/24 11:11 08/11/24 15:09
I&O
08/10/24 08/11/24 08/12/24
06:59 06:59 06:59
Output Total 650 / 650
Balance -650 / -650
Review of Systems
-
History Source: Patient
All other systems: Reviewed and negative
Respiratory: Reports Other (Increased secretions)
Abdomen/GI: Reports Other (Leaking around J-tube)
Physical Exam
-
General: No Apparent Distress
--- NOTE | 2024-08-11 15:48 | VNURNOTE ---
Chart reviewed. Patient known to [facility] in the past. New referral for [facility] placed in [facility].
[2024-08-11] MEDS: LOVENOX 40 MG SC (18:00)
[2024-08-11] MEDS: PULMICORT 0.5 MG INH (19:30)
[2024-08-11] MEDS: SODIUM CHLORIDE 3% FOR INHALATION 1 VIAL INH (19:53)
[2024-08-11] MEDS: NON-FORMULARY ITEM 1 MG TUBE (20:06)
[2024-08-11] MEDS: NON-FORMULARY ITEM 6.25 MG TUBE (20:07)
[2024-08-11] MEDS: MELATONIN 6 MG TUBE (23:30)
[2024-08-11] MEDS: SENNA SYRUP TUBE (23:31)
[2024-08-11] MEDS: NEURONTIN 1500 MG TUBE (23:32)
[2024-08-11] MEDS: ZYRTEC 10 MG TUBE (23:33)
[2024-08-12] MEDS: REGLAN 5 MG TUBE ×2 (01:06→09:59)
[2024-08-12 01:30] VITALS: PULSE 103; PULSE 2
[2024-08-12 03:11] VITALS: BP 102/65
[2024-08-12] MEDS: DILAUDID 8 MG TUBE ×3 (04:10→12:47)
[2024-08-12] MEDS: NSS 1000 IV ×2 (04:10→10:26)
[2024-08-12] MEDS: ZOFRAN 4 MG TUBE ×2 (06:02→12:46)
[2024-08-12 07:15] VITALS: BP 134/97
[2024-08-12 08:09] LABS: % Basophils 0.1 % (0-2); % Eosinophils 0.7 % (0-6); % Immature Granulocytes 0.4 % (0-0.5); % Lymphocytes 22.3 % (20.5-51.1); % Monocytes 6.1 % (1.7-9.3); % Neutrophils 70.4 % (42.2-75.2); Absolute Eosinophils 0.1 10^3/uL (0-0.7); Absolute Lymphocytes 1.9 10^3/uL (1.2-3.4); Absolute Monocytes 0.5 10^3/uL (0.1-0.6); Absolute Neutrophils 5.9 10^3/uL (1.4-6.5); Hematocrit 40.9 % (39.0-52.0); Hemoglobin 12.9 g/dL (13.0-18.0); Mean Corp Hgb Conc. 31.5 g/dL (33.0-37.0); Mean Corpuscular Hgb 28.7 pg (27.0-31.0); Mean Corpuscular Volume 91.1 fL (80.0-94.0); Mean Platelet Volume 12.7 fL (7.4-10.4); Nucleated Red Blood Cells % 0 % (-); Platelet Count 124 10^3/uL (130-400); Red Blood Cell Count 4.49 10^6/uL (4.70-6.10); Red Cell Dist. Width 14.2 % (11.5-14.5); White Blood Cell Count 8.3 10^3/uL (4.8-10.8)
[2024-08-12 09:01] LABS: ALT (SGPT) 114 U/L (0-50); AST (SGOT) 53 U/L (17-59); Albumin 4.3 g/dl (3.5-5.0); Alkaline Phosphatase 209 U/L (38-126); Blood Urea Nitrogen 9 mg/dl (9-20); Carbon Dioxide 21 mmol/L (22-30); Chloride 111 mmol/L (98-107); Estimated Creatinine Clearance > 125 ml/min; Glucose 83 mg/dl (70-99); Potassium 3.8 mmol/L (3.5-5.1); Sodium 143 mmol/L (135-145); Total Bilirubin 0.7 mg/dl (0.2-1.3); Total Protein 6.9 g/dl (6.3-8.2); eGFR > 60.00
[2024-08-12] MEDS: MIRALAX 17 GRAMS TUBE (09:01)
[2024-08-12] MEDS: PRELONE 10 MG TUBE (09:01)
[2024-08-12] MEDS: PREVACID 30 MG TUBE (09:02)
[2024-08-12] MEDS: ROBITUSSIN 200 MG PO ×2 (09:02→12:46)
[2024-08-12] MEDS: FLEXERIL 15 MG TUBE (09:03)
[2024-08-12] MEDS: EMEND 40 MG TUBE (09:04)
[2024-08-12] MEDS: NEURONTIN 1200 MG TUBE (09:04)
[2024-08-12] MEDS: PERIACTIN 4 MG TUBE ×2 (09:11→12:46)
[2024-08-12] MEDS: XANAX 1 MG TUBE (09:11)
[2024-08-12] MEDS: PEPCID neonatal/peds 20 MG TUBE (09:12)
[2024-08-12] MEDS: BENTYL 10 MG TUBE ×2 (09:12→12:46)
[2024-08-12] MEDS: NON-FORMULARY ITEM 6.25 MG TUBE (09:13)
[2024-08-12] MEDS: D-VI-SOL (Vitamin D3) 10 MCG TUBE (09:16)
[2024-08-12] MEDS: URSODIOL 300 MG TUBE (09:16)
[2024-08-12] MEDS: DUONEB 3 ML INH (09:36)
[2024-08-12] MEDS: PULMICORT 0.5 MG INH (09:36)
[2024-08-12] MEDS: SODIUM CHLORIDE 3% FOR INHALATION 1 VIAL INH (09:36)
[2024-08-12] MEDS: SENNA SYRUP 8.8 MG TUBE (09:59)
[2024-08-12] MEDS: TYLENOL ORAL SOLUTION 650 MG TUBE (09:59)
[2024-08-12] MEDS: ZANAFLEX 6 MG TUBE (09:59)
--- NOTE | 2024-08-12 10:58 | W.PN.PUL3 ---
Today's Communication / Plan
-
-
Okay to discharge from my perspective.
Upon discharge hold Symbicort
Discharged on Pulmicort 0.5 mg twice a day.
Continue DuoNebs 3-4 times a day for secretion clearance
Okay to discharge on 3% saline twice a day until secretions are cleared.
Continue vest therapy
Continue nocturnal BiPAP
Scopolamine patch
Continue Mucinex
Inhaled tobramycin as previously prescribed by his internal controls manager-to be restarted.
Eventually consider biologic [id number] at [facility].
No additional recommendations, sign off.
Assessment
-
28-year-old male with a history of Crohn's disease status post tracheoesophageal fistula repair, trach with subsequent removal, esophagectomy status post J-tube placement as well as a history of asthma recently diagnosed with pneumonia. Discharged
from the hospital 07/27/2024 with diarrhea and asthma exacerbation.
Now readmitted with PEG tube dysfunction/malfunction-also rhonchi on exam. We were consulted on 08/11/2024 for evaluation regarding his chronic asthma symptoms.
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
Recovering from acute exacerbation-discharge from the hospital 07/2024.
Asthma -not in acute exacerbation.
-
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
Conditions present prior to admission:
Patient was last hospitalized 07/21 - 07/27 for tracheitis / asthma.
Crohn's disease on Stelara.
Tracheoesophageal fistula repair age 3.
Tracheal cleft repair age 3.
GJ tube placement.
Laryngeal cleft repair 2016.
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
Vocal cord paralysis.
GERD.
Asthma.
Right upper lobe 5.5 cm bleb/bulla
Chronic abdominal and back pain.
History of trach. Bilateral hip fracture. Left rotator cuff repair.
Plan
Pulm the respiratory status no change from overnight.
Not hypoxemic.
Not bronchospastic
Bilateral rhonchi and difficulty clearing secretion at times.
Chest x-ray without infiltrate or atelectasis.
-
This admission originally for PEG tube function.
-
Given chest congestion which appears to be chronic we were consulted on 08/11/2024 given complexity of his pulmonary history with recurrent asthma exacerbations and difficulty completely clearing respiratory symptoms.
Recurrent asthma exacerbations due to inability to completely overcome infections and asthma exacerbations.
-
Currently not bronchospastic:
From the pulmonary perspective-feels better.
-
Rhonchi bilaterally which likely reflects recovering from recent admission. Discharged from the hospital 07/27/2024.
Does not appear to be in distress.
Afebrile without leukocytosis. Completed a course of meropenem during last admission.
Chest x-ray 08/10/2024:Air density projecting over the mediastinum compatible with bowel within the anterior mediastinum from tracheoesophageal fistula repair.
No radiographic evidence for pneumonia or pulmonary edema.
MRSA screen negative 07/21/2024
-
No evidence for ongoing exacerbation.
Hold Symbicort. Upon discharge.
Will discharge on nebulized therapy as he feels better on it:
Pulmicort twice a day
DuoNebs 3-4 times a day
-
Did receive 1 dose of 10 mg of dexamethasone in the emergency room for? Wheezing
No additional high dose of corticosteroids necessary.
-
Continue mucolytic's continues - mucinex
Tracheotomy care-deep suctioning
Continue vest therapy. He has 1 at home. Continue 2-3 times a day.
3% saline twice a day-May discharge on this medication as the patient feels that improves his secretion clearance. Unclear if insurance will cover.
Restart tobramycin inhalations for history of Pseudomonas colonization.
-
Aspiration precautions-has esophagectomy and aspiration would be only oral contents.
-
Continue nocturnal BiPAP which he uses at home.
-
Prior discussions:
Continue steroids taper, now on prednisone-mother reports in the past when he was on steroids a lot-they had to slowly reduce it because he had 'cortisol issues'-suspect adrenal insufficiency.
Consider additional Biologics if cannot come off steroids-would need to discuss with GI as patient on biologic- Stelara -IL 12/IL 23, inhibitor for Crohn's disease
If Biologics for asthma are considered, could try Dupixent although he does not have significant eosinophilia. His absolute eosinophils were 200 on 04/18/2024, and with his systemic steroid use for asthma which does make him feel better, he would
still qualify for Dupixent
-
Dr. Martinez updated patient and mother at the bedside 08/12/2024. Okay to discharge from my perspective.
Dr. Santana discussed briefly the potential need for a port placement as patient reports 'running out of veins' and likely to have repetitive hospitalizations
We have discussed other temporary measures likely suppressive abx regiment but this may increase his resistance considerably and routine bronch wash outs
He feels his overall QoL is being affected by his frequent hospitalizations
DVT prophylaxis-on Lovenox.
Nutrition-on tube feeds.
Physical therapy as tolerated
Follow up Outpatient pulmonary follow-up at [facility]-would also like to follow-up locally
We are happy to manage locally, had been following with Dr Bond at [place] when he aged out of [facility]
Diagnostic data:
Chest x-ray 08/10/2024: No acute abnormalities
Chest x-ray 02/17/2019-lungs clear
Chest x-ray-Limited evaluation as a result of prior esophagectomy, cannot rule out patchy right suprahilar pneumonia
Chest x-ray 12/20/2021-NAD, multiple bullae over right medial lung unchanged
Chest x-ray 07/21/2024-NAD
CT chest 12/20/2021-no pulmonary embolism, moderate left lower lobe pneumonia, stable postoperative changes consistent with prior tracheoesophageal fistula repair, 5.5 cm bleb lower medial aspect right upper lobe
CT chest 07/21/2024-no acute abnormalities identified in the chest, stable chronic changes from prior tracheoesophageal fistula repair, large bleb bulla lower medial aspect right upper lobe measuring 6.1 cm
-----
Subjective Data
-
Date of Service:
Date of Service: August 12, 2024
Chief Complaint: Pulmonary Follow Up (History of asthma-recovering from exacerbation.)
Subjective:
Continues to have at times difficulty clearing secretions
Feels better with Pulmicort.
Denies hemoptysis
No wheezing
Remains on room air
Review of Systems
Cardiopulmonary: Dyspnea (Not at rest), Cough and Wheezing (n)
Objective Data
Data Reviewed
Vital Signs / I&O / Oxygen:
Vital Signs
Temp Pulse Resp BP Pulse Ox
98.3 F 106 18 134/97 98
08/12/24 07:15 08/12/24 09:49 08/12/24 09:37 08/12/24 07:15 08/12/24 07:15
Intake and Output
08/11/24 08/12/24 08/13/24
06:59 06:59 06:59
Intake Total 2800 / 2800
Output Total 1750 / 1750 400 / 400
Balance 1050 / 1050 -400 / -400
SaO2 98
Physical Exam
General: Comfortable
HEENT: Normocephalic
Cardiovascular: S1-S2
Respiratory: Rhonchi
GI: Soft and Non Distended
Neurology: Awake, Alert and Oriented
Skin: Good Color
Labs/Micro/Reports
Lab Data
08/12/24 07:40
08/12/24 07:40
[2024-08-12 11:08] VITALS: BP 101/71
--- NOTE | 2024-08-12 11:22 | WOUNDNOTE ---
[facility] RN note: Patient admitted with Asthma exacerbation, leaking peg tube.
See H&P for complete history.
PMH: ED Past Medical History: Asthma (esophageal atresia), Other (Esophageal atresia, tracheoesophageal fistula, tracheal cleft, GJ tube, aspiration pneumonia) and Other (Crohn's disease, colitis.)
ED Past Surgical History: Cholecystectomy and Other (JG tube, tracheoesophageal fistula repair, laryngeal cleft repair, prior tracheostomy.)
Wound Location and type/assessment: Patient known to service, last seen 07/22/24 for skin irritation surrounding R abdominal J tube. Patient reports Duoderm dressing didn't work that was applied last time because drainage pooled around skin near
tube entrance. Now patient using stoma powder, skin prep and gauze with much improvement, no breakdown of skin currently, no leakage noted. Reviewed Dr. villavicencio's note, CT showed appropriate tube placement. Patient also asked us to help better
manage containment of spit fistula on R side of neck. Currently using Coloplast one piece pediatric pouch with barrier extenders, has small hernia medial to fistula. Patient and mother at bedside report he used to get 4 day wear time and now have to
change several times a day. Today used skin prep to surrounding skin, Theron cera plus ring then small Carola wound business office manager cut to fit fistula site. Template and 2nd Carola pouch given to mother and patient to take upon discharge. Teaching done on
how to use and can order from supply [employer] if works well.
Appetite: Tube feedings.
Pressure redistribution devices in place: Patient gets oob to commode chair, using Accum[employer].
Plan: See the above note, will update discharge instructions for codes to order pouch for spit fistula and recommended to patient and mother to continue doing stoma powder and gauze to drainage tube site.
Confirmed orders with hospitalist at bedside and will update nurse. Updated care plan and will follow as needed.
Note to case management of equipment requested for discharge: None.
--- NOTE | 2024-08-12 11:42 | WOUNDNOTE ---
RIGHT SIDE, ABDOMEN
--- NOTE | 2024-08-12 11:43 | WOUNDNOTE ---
RIGHT SIDE, NECK
--- NOTE | 2024-08-12 12:00 | W.DCSUMMARY ---
Discharge Summary
Discharge Data
Date of Admission: 08/11/24
Date of Discharge: 08/12/24
Total time spent discharging patient (in min): 50
-
Pending Results: No
Hospital Course
Mr. Bowman is a 28-year-old male with a complicated medical history including Crohn's disease (status post bowel resection), tracheoesophageal fistula (repaired at age 3), tracheostomy (now discontinued), esophagostomy (with spit fistula),
multiple venting G- and J-tubes, asthma, and tracheitis who presented with complaint of inappropriate drainage from around his GJ tube. His leakage had been ongoing for a few weeks prior to arrival. Apparently all of his surgical interventions
were performed at [facility] or [facility]. Most recently he underwent ex lap with lysis of adhesions, Kina-en-Y, and J-tube replacement in March 2024 at [facility]. Of note, he recently discharged from [facility]
07/27 after treatment for tracheitis/asthma. He was treated at that time with meropenem and discharged on a prednisone taper. He was admitted now for management of reportedly leaking GJ tube and copious respiratory secretions. He also reported
very dark-colored urine recently.
He was hemodynamically stable and his labs were generally unremarkable/close to his baseline. He was given IV fluids. His enteral access was evaluated and found to be working appropriately. His spit fistula was also evaluated and bag was
replaced. He was evaluated by pulmonology who recommended switching Symbicort to Pulmicort and adding Mucinex. There was no indication for systemic antibiotics. He felt subjectively better 24 hours after admission with above-mentioned treatment.
He will be discharged to home with Pulmicort, and Symbicort will be discontinued. He will continue taking Mucinex. Inhaled ipratropium was broadened to ipratropium plus albuterol inhalation (DuoNeb), which he should continue. He should continue
using 7% saline inhalation at home until his secretions clear up. For his bowel regimen, MiraLAX was restarted and should be continued unless he develops diarrhea. He will need close follow-up with his primary care physician and multiple
specialists including his primary police stenographer, with whom he has good contact. At time of hospital discharge he was medically stable.
General: No Apparent Distress, Comfortable and Conversant
HEENT: NormoCephalic, Moist mucous membranes, esophagectomy with pouch for secretions
Respiratory: Coarse breath sounds bilaterally (left greater than right), Non Labored Respirations
Cardiac: S1/S2 and Regular Rhythm; No Rub or Gallop
GI: Soft, Non Tender, J-tube draining appropriately
Musculoskeletal: No Edema, no deformity
Skin: Warm and dry
: NO Mcknight
Neuro: Awake, Alert, Nonfocal/grossly intact
Psych: Calm and Intact Judgment/Insight
Discharge Plan
-
Patient Disposition: Home (Routine Discharge)
Discharge Diagnosis/Procedures: J-tube leakage, copious pulmonary secretions
Diet: Tube feeding
Activity: As tolerated
Activity Restrictions/Additional Instructions:
Mr. Bowman is a 28-year-old male with a complicated medical history including Crohn's disease (status post bowel resection), tracheoesophageal fistula (repaired at age 3), tracheostomy (now discontinued), esophagostomy (with spit fistula),
multiple venting G- and J-tubes, asthma, and tracheitis who presented with complaint of inappropriate drainage from around his GJ tube. His leakage had been ongoing for a few weeks prior to arrival. Apparently all of his surgical interventions
were performed at [facility] or [facility]. Most recently he underwent ex lap with lysis of adhesions, Kina-en-Y, and J-tube replacement in March 2024 at [facility]. Of note, he recently discharged from [facility]
07/27 after treatment for tracheitis/asthma. He was treated at that time with meropenem and discharged on a prednisone taper. He was admitted now for management of reportedly leaking GJ tube and copious respiratory secretions. He also reported
very dark-colored urine recently.
He was hemodynamically stable and his labs were generally unremarkable/close to his baseline. He was given IV fluids. His enteral access was evaluated and found to be working appropriately. His spit fistula was also evaluated and bag was
replaced. He was evaluated by pulmonology who recommended switching Symbicort to Pulmicort and adding Mucinex. There was no indication for systemic antibiotics. He felt subjectively better 24 hours after admission with above-mentioned treatment.
He will be discharged to home with Pulmicort, and Symbicort will be discontinued. He will continue taking Mucinex. Inhaled ipratropium was broadened to ipratropium plus albuterol inhalation (DuoNeb), which he should continue. He should continue
using 7% saline inhalation at home until his secretions clear up. For his bowel regimen, MiraLAX was restarted and should be continued unless he develops diarrhea. He will need close follow-up with his primary care physician and multiple
specialists including his primary police stenographer, with whom he has good contact. At time of hospital discharge he was medically stable.
Referrals:
Rudy Snyder MD [Family Provider, Family Practice]
Prescriptions:
New
ipratropium-albuterol 0.5 mg-3 mg(2.5 mg base)/3 mL solution for nebulization
3 ml inhalation TID Qty: 180 0RF
polyethylene glycol 3350 17 gram Powder In Packet
17 g feeding tube DAILY Qty: 0 0RF
budesonide 0.5 mg/2 mL Suspension For Nebulization
0.5 mg inhalation R BID Qty: 60 0RF
guaifenesin 100 mg/5 mL Liquid
200 mg PO QID 14 Days Qty: 560 0RF
Continued
cetirizine [Children's Cetirizine] 5 MG/5 ML solution
10 mg feeding tube HS
sennosides [senna] 8.8 mg/5 mL Syrup
8.8 mg feeding tube BIDPRN PRN (Reason: constipation) Qty: 0
famotidine 40 mg/5 mL (8 mg/mL) Suspension For Reconstitution
20 mg feeding tube BID@0800,2000 Qty: 0
lansoprazole [Prevacid SoluTab] 30 MG tablet,disintegrat, delay rel
30 mg feeding tube BID
Rx Instructions:
brand name only
cholecalciferol (vitamin D3) [D-Vi-Samanta] 10 mcg/mL (400 unit/mL) Drops
10 mcg feeding tube DAILY Qty: 0
gabapentin 250 MG/5 ML solution
1,200 mg feeding tube DAILY
prucalopride [Motegrity] 2 MG tablet
2 mg feeding tube DAILY@1200
cyclobenzaprine 10 mg tablet
15 mg feeding tube TID
gabapentin 250 mg/5 mL Solution
900 mg feeding tube DAILY@1400
melatonin 3 mg Tablet
6 mg feeding tube HSPRN PRN (Reason: sleep)
ondansetron HCl 4 mg/5 mL solution
4 mg feeding tube Q6H
cyproheptadine 2 mg/5 mL syrup
4 mg feeding tube QID@08,12,16,20
scopolamine base 1 mg over 3 days Patch 3 Day
1 patch TRANSDERMAL Q3D
sodium chloride 7 % Solution For Nebulization
1 inh INHALATION R TID
acetaminophen 160 mg/5 mL (5 mL) Solution
1,000 mg feeding tube BIDPRN PRN (Reason: mild pain)
gabapentin 250 mg/5 mL (5 mL) Solution
1,500 mg feeding tube HS
dicyclomine 10 mg/5 mL solution
10 mg feeding tube Q6H
Movantik 12.5 mg Tablet
6.25 mg PO DAILY
Ursodiol 50mg/Ml
6 ml feeding tube BID
tizanidine 2 mg Tablet
6 mg feeding tube Q8H PRN (Reason: muscle spasms)
metoclopramide HCl 5 mg/5 mL solution
5 mg feeding tube TIDPRN PRN (Reason: spasms)
hydromorphone 1 mg/mL liquid
8 mg feeding tube Q4H
alprazolam 1 mg Tablet,Disintegrating
1 mg feeding tube TID
ustekinumab [Stelara] 90 mg/mL Syringe
90 mg SC MONTHLY
aprepitant 40 mg Capsule
40 mg feeding tube DAILY
calcium carbonate 500 mg/5 mL (1,250 mg/5 mL) Suspension
500 mg PO BID
Prednisone Intensol 5 mg/mL concentrate
10 mg feeding tube DAILY Qty: 60 0RF
Rx Instructions:
Start with 40mg daily and decrease dose by 10mg on every 4th day.
tobramycin in 0.225 % NaCl 300 mg/5 mL solution for nebulization
5 ml INHALATION BID Qty: 0 0RF
Rx Instructions:
for 2 weeks on and then 2 weeks off
Continue with guidance of primary police stenographer
Discontinued
ipratropium bromide 0.02 % solution
2.5 ml inhalation R TID
budesonide-formoterol [Symbicort] 160-4.5 mcg/actuation Hfa Aerosol Inhaler
2 inh INHALATION R BID
Discharge Orders:
Discharge Patient (As Directed); Ordered 08/12/24
Ordered By: Cyril Harmon
Discharge Date and Time
Print Language: HEBREW
--- NOTE | 2024-08-12 12:27 | CM ---
CM fallowing re: discharge planning.
Reviewed pt's chart, met with pt.
Discharge order noted. pt is aware, expressed his agreement with discharge and pt stated his mother will transport him home.
IMM reviewed, placed on chart, pt has a copy.
Pt is aware that [facility] will resume VN services upon the discharge. [facility] liaison following.
Please fax discharge instructions to [facility] at [phone]
D/c plan: home with resumptions of [facility] and family support. mother to transport.
[2024-08-12] MEDS: NON-FORMULARY ITEM 2 MG TUBE (12:47)
== END 2024-08-12 14:38 | disposition home health service (06) | DRG 394 ==
LOC: 2 NORTH 02:52
PROVIDERS: Emergency Medicine; Physician Assistant; ADMITTING PHYSICIAN Hospitalist; ATTENDING PHYSICIAN Internal Medicine; CONSULT PHYSICIAN Surgery; EMERGENCY PHYSICIAN Student in an Organized Health Care Education/Training Program; FAMILY PHYSICIAN Family Medicine; OTHER PHYSICIAN Internal Medicine Critical Care Medicine
PROC: 5A09357 Assistance with Respiratory Ventilation, Less than 24 Consecutive Hours, Continuous Positive Airway Pressure (ICD-10-PCS; 2024-08-11)
DX: K94.13 Enterostomy malfunction (principal); F11.20 Opioid dependence, uncomplicated; K50.90 Crohn's disease, unspecified, without complications; J45.909 Unspecified asthma, uncomplicated; R00.0 Tachycardia, unspecified; G89.4 Chronic pain syndrome; J38.00 Paralysis of vocal cords and larynx, unspecified; Z22.39 Carrier of other specified bacterial diseases; Z79.899 Other long term (current) drug therapy; Y83.3 Surgical operation with formation of external stoma as the cause of abnormal reaction of the patient, or of later complication, without mention of misadventure at the time of the procedure
CPT/HCPCS: 71045; 74176; 80048; 80053; 81003; 85025; 85027; 93005; 94640; 94660; 94669; 99285

== ENCOUNTER 2024-09-10 18:42 | Emergency (ER) | payer MEDICARE, OTHER, SELFPAY ==
[2024-09-10 18:42] VITALS: BMI 32.3
[2024-09-10 18:49] VITALS: BP 116/80
[2024-09-10 20:44] VITALS: BP 127/82
[2024-09-10 21:00] VITALS: BP 122/83
[2024-09-10 21:04] LABS: Hematocrit 38.6 % (39.0-52.0); Hemoglobin 12.5 g/dL (13.0-18.0); Mean Corp Hgb Conc. 32.4 g/dL (33.0-37.0); Mean Corpuscular Volume 91.7 fL (80.0-94.0); Nucleated Red Blood Cells % 0 % (-); Platelet Count 125 10^3/uL (130-400); Red Cell Dist. Width 14.6 % (11.5-14.5)
[2024-09-10 21:11] LABS: ALT (SGPT) 113 U/L (0-50); AST (SGOT) 81 U/L (17-59); Albumin 4.3 g/dl (3.5-5.0); Alkaline Phosphatase 200 U/L (38-126); Blood Urea Nitrogen 9 mg/dl (9-20); Calcium 9.4 mg/dl (8.4-10.2); Carbon Dioxide 29 mmol/L (22-30); Chloride 105 mmol/L (98-107); Estimated Creatinine Clearance > 125 ml/min; Glucose 88 mg/dl (70-99); Potassium 4.0 mmol/L (3.5-5.1); Sodium 138 mmol/L (135-145); Total Protein 6.9 g/dl (6.3-8.2); eGFR > 60.00
[2024-09-10] MEDS: DUONEB 3 ML INH (21:42)
[2024-09-10 22:10] LABS: COVID-19 Antigen Negative (Negative)
--- NOTE | 2024-09-10 23:13 | ED.GENMED ---
History of Present Illness
<Usman Malave PA-C - Last Filed: 09/10/24 23:36>
General
Chief Complaint: Swelling
Source: patient, records and family
Time Seen by Provider: 09/10/24 21:09
History of Present Illness
History of Present Illness:
28-year-old male with past medical history of Crohn's disease status post bowel resection, previous tracheoesophageal fistula status postrepair, chronic GJ tubes presenting back to the emergency department after he was admitted here in the beginning
of August for evaluation of lower extremity edema which she states he noticed this morning. Patient also endorses a still continuous mild cough and reports that he is still tapering down off prednisone. Patient denies any chest pain, shortness of
breath different than his usual, pleurisy, hemoptysis, nausea or vomiting, abdominal pain (notes that he has had some loose stools recently and recently did stool studies as an outpatient) or any other concerns
Past History
<Usman Malave PA-C - Last Filed: 09/10/24 23:36>
Past History
ED Past Medical History: Asthma (esophageal atresia), Other (Esophageal atresia, tracheoesophageal fistula, tracheal cleft, GJ tube, aspiration pneumonia) and Other (Crohn's disease, colitis.)
ED Past Surgical History: Cholecystectomy and Other (JG tube, tracheoesophageal fistula repair, laryngeal cleft repair, prior tracheostomy.)
Patient has exhibited threatening behavior?: No
PSI?: No
Social History
Tobacco: Non-smoker
Alcohol: None
Drug: None
Personal: Single
Living: with family
Employment: Not employed
Family History
Family History: Other (Noncontributory)
Review of Systems
<Usman Malave PA-C - Last Filed: 09/10/24 23:36>
Review of Systems
All Other Systems: ROS reviewed and negative except as documented in HPI and ROS
Phy Exam
<Usman Malave PA-C - Last Filed: 09/10/24 23:36>
Physical Exam
Physical Exam:
GENERAL: Alert ,, spit fistula within the right upper chest wall appears older than stated age, chronically ill-appearing
EYE: pupils equal and reactive
NECK: Supple, no significant adenopathy.
ENT: o/p clr, mmm.
CARDIAC: Regular rate and rhythm .
LUNGS: Expiratory wheeze with slight rhonchi more pronounced in the posterior lung alva spit fistula within the right upper chest wall,
ABDOMEN: Soft, without focal tenderness, no r/g, no cvat. G-tube and J-tube in place, no surrounding erythema,
NEUROLOGICAL: Alert and oriented
SKIN: Warm and dry, skin intact.
MUSCULOSKELETAL: Mild trace pitting ankle edema bilateral, well perfused.
PSYCH: Normal and appropriate interaction.
Scores
<Usman Malave PA-C - Last Filed: 09/10/24 23:36>
Heart Failure Risk
Heart Failure Risk Score: Not Applicable
Heart Score for Chest Pain Patients
STEMI patient?: Not applicable
Withdrawal Assessment of Alcohol
Withdrawal Assessment Completed?: Not applicable
Course
<Usman Malave PA-C - Last Filed: 09/10/24 23:36>
Orders/Labs/Results
Orders:
Orders
09/10/24 20:47
Complete Blood Count/With Diff Urgent
Comprehensive Metabolic Panel Urgent
Pro-BNP [NT-proBNP] Urgent
09/10/24 21:22
Ipratropium/Albuterol Sulfate [Duoneb] 3 ml INH R NOW ONE
CR Chest - 2 Views Urgent
Comment:
Reason For Exam: lower extremity edema, cough
Venous Doppler Lwr Ext Bilat [US Periph Venous LOWER Ext Carmelo] Urgent
Comment:
Reason For Exam: edema
09/10/24 21:40
COVID-19 Antigen Urgent
Source: Nasal Swab
Abnormal Lab Results
09/10/24
20:47
RBC 4.21 L 10^6/uL
(4.70-6.10)
Hgb 12.5 L g/dL
(13.0-18.0)
Hct 38.6 L %
(39.0-52.0)
MCHC 32.4 L g/dL
(33.0-37.0)
RDW 14.6 H %
(11.5-14.5)
Plt Count 125 L 10^3/uL
(130-400)
MPV 12.6 H fL
(7.4-10.4)
Absolute Lymphs (auto) 1.1 L 10^3/uL
(1.2-3.4)
Lymphocytes % 18.8 L %
(20.5-51.1)
Creatinine 0.5 L mg/dL
(0.7-1.3)
AST 81 H U/L
(17-59)
ALT 113 H U/L
(0-50)
Alkaline Phosphatase 200 H U/L
(38-126)
09/10/24 20:47
09/10/24 20:47
Vital Signs
Initial and Last Documented VS:
Initial Vital Signs
Temp Pulse Resp BP Pulse Ox
98.5 F 112 18 116/80 95
09/10/24 18:49 09/10/24 18:49 09/10/24 18:49 09/10/24 18:49 09/10/24 18:49
Last Documented Vital Signs
Temp Pulse Resp BP Pulse Ox
98.5 F 112 18 122/83 98
09/10/24 18:49 09/10/24 18:49 09/10/24 18:49 09/10/24 21:00 09/10/24 23:13
Conversion Developer consulted with Physician
Conversion Developer consulted with physician?: Yes
Name of Physician Consulted: Jose
<Anitha Garcia, DO - Last Filed: 09/10/24 23:45>
Orders/Labs/Results
Orders:
Orders
09/10/24 20:47
Complete Blood Count/With Diff Urgent
Comprehensive Metabolic Panel Urgent
Pro-BNP [NT-proBNP] Urgent
09/10/24 21:22
Ipratropium/Albuterol Sulfate [Duoneb] 3 ml INH R NOW ONE
CR Chest - 2 Views Urgent
Comment:
Reason For Exam: lower extremity edema, cough
Venous Doppler Lwr Ext Bilat [US Periph Venous LOWER Ext Carmelo] Urgent
Comment:
Reason For Exam: edema
09/10/24 21:40
COVID-19 Antigen Urgent
Source: Nasal Swab
Abnormal Lab Results
09/10/24
20:47
RBC 4.21 L 10^6/uL
(4.70-6.10)
Hgb 12.5 L g/dL
(13.0-18.0)
Hct 38.6 L %
(39.0-52.0)
MCHC 32.4 L g/dL
(33.0-37.0)
RDW 14.6 H %
(11.5-14.5)
Plt Count 125 L 10^3/uL
(130-400)
MPV 12.6 H fL
(7.4-10.4)
Absolute Lymphs (auto) 1.1 L 10^3/uL
(1.2-3.4)
Lymphocytes % 18.8 L %
(20.5-51.1)
Creatinine 0.5 L mg/dL
(0.7-1.3)
AST 81 H U/L
(17-59)
ALT 113 H U/L
(0-50)
Alkaline Phosphatase 200 H U/L
(38-126)
09/10/24 20:47
09/10/24 20:47
Vital Signs
Initial and Last Documented VS:
Initial Vital Signs
Temp Pulse Resp BP Pulse Ox
98.5 F 112 18 116/80 95
09/10/24 18:49 09/10/24 18:49 09/10/24 18:49 09/10/24 18:49 09/10/24 18:49
Last Documented Vital Signs
Temp Pulse Resp BP Pulse Ox
98.5 F 112 18 122/83 98
09/10/24 18:49 09/10/24 18:49 09/10/24 18:49 09/10/24 21:00 09/10/24 23:13
<Usman Malave PA-C - Last Filed: 09/10/24 23:36>
MDM/Problems Addressed
Differential Diagnosis Includes:
- DVT
- CHF
- Cushings/steroid induced edema
- Venous insufficiency
- Valvular dysfunction
- Varicose Veins
MDM/Problems Addressed:
28-year-old male with complicated past medical history presenting to the ER with main concern of bilateral lower extremity edema which he noticed today. Patient sedentary, multiple recent hospitalizations and with increased risk for DVT. Given the
bilateral nature of his edema this would make this diagnosis a little less likely. Possible side effects from recent long-term steroid taper. Labs and imaging ordered. Disposition pending
<Usman Malave PA-C - Last Filed: 09/10/24 23:36>
*Radiology
Radiology exam reviewed: preliminary read by ED provider (no pneumonia) and radiology read reviewed (negative for DVT)
*Pulse Oximetry
SaO2: 98
Oxygen Mode of Delivery: Room air
Patient hypoxic: no
*Critical Care Note
Total Time (30-74mins, 75-104mins- exclusive of procedures): Not Applicable
<Usman Malave PA-C - Last Filed: 09/10/24 23:36>
Patient Management
Social determinants of health affecting care: Living situation and Strong social support
Escalation/DeEscalation of care consider admission/obs:
Patient's workup is largely unremarkable for any acute pathologies. Patient does appear to have a chronic transaminitis. At this time I do think is reasonable for patient to be discharged home, advised ice and elevation of the lower extremities,
follow-up with primary care provider.
ED Attending Note
<Usman Malave PA-C - Last Filed: 09/10/24 23:36>
-
Portions of this chart may have been created with voice recognition software.� Occasional wrong word or��sound alike� substitutions may have occurred due to the inherent limitations of voice recognition software.
<Anitha Garcia DO - Last Filed: 09/10/24 23:45>
ED Attending Note
Patient seen and examined by attending physician: Yes
I performed the substantive portion of visit, reviewed & personally made and approve the management plan that is documented in note by myself or VITA.: Yes
I performed a history and physical exam of patient and discussed management with resident, I reviewed resident's note and agree with documented findings and plan of care.: Yes
ED Attending Note:
28-year-old male with complicated history including Crohn's disease (status post bowel resection), tracheoesophageal fistula (repaired at age 3), tracheostomy (now discontinued), esophagostomy (with spit fistula), G- and J-tubes, asthma, and
tracheitis presenting for swelling to lower extremities. Patient notes that he started symptoms this morning. Denies any significant dyspnea. Denies chest pain. Does note that he was recently treated for bronchitis with steroids, new medication.
Denies any redness or significant pain. Denies numbness or tingling. Vital signs are significant for mild tachycardia.
On exam patient is resting comfortably, no acute distress. No increased work of breathing. Mild end expiratory wheezing. Regarding swelling to lower extremities, 1+ pitting edema, symmetric. No erythema or warmth. No significant tenderness on
palpation. Distal sensation and pulses intact. Workup grossly unremarkable. Ultimately suspect dependent edema. Chest x-ray without acute cardiopulmonary disease. Without present concern for new onset heart failure. No signs of infection.
Ultrasound without evidence of DVT. Feel stable for discharge with supportive therapy. Advised compression socks and elevation. Mother at bedside. Return precautions discussed
Discharge Plan
Departure
Patient Disposition: Home (Routine Discharge)
Date of Disposition: 09/10/24
Time of Disposition: 23:34
Patient with high blood pressure during this ER visit?: No
Discharge Problem:
Edema of both legs
Instructions: Dependent Edema (DC)
Prescriptions:
No Action
cetirizine [Children's Cetirizine] 5 MG/5 ML solution
10 mg feeding tube HS
sennosides [senna] 8.8 mg/5 mL Syrup
8.8 mg feeding tube BIDPRN PRN (Reason: constipation) Qty: 0
famotidine 40 mg/5 mL (8 mg/mL) Suspension For Reconstitution
20 mg feeding tube BID@0800,2000 Qty: 0
lansoprazole [Prevacid SoluTab] 30 MG tablet,disintegrat, delay rel
30 mg feeding tube BID
Rx Instructions:
brand name only
cholecalciferol (vitamin D3) [D-Vi-Samanta] 10 mcg/mL (400 unit/mL) Drops
10 mcg feeding tube DAILY Qty: 0
gabapentin 250 MG/5 ML solution
1,200 mg feeding tube DAILY
prucalopride [Motegrity] 2 MG tablet
2 mg feeding tube DAILY@1200
cyclobenzaprine 10 mg tablet
15 mg feeding tube TID
gabapentin 250 mg/5 mL Solution
900 mg feeding tube DAILY@1400
melatonin 3 mg Tablet
6 mg feeding tube HSPRN PRN (Reason: sleep)
ondansetron HCl 4 mg/5 mL solution
4 mg feeding tube Q6H
cyproheptadine 2 mg/5 mL syrup
4 mg feeding tube QID@08,12,16,20
scopolamine base 1 mg over 3 days Patch 3 Day
1 patch TRANSDERMAL Q3D
sodium chloride 7 % Solution For Nebulization
1 inh INHALATION R TID
acetaminophen 160 mg/5 mL (5 mL) Solution
1,000 mg feeding tube BIDPRN PRN (Reason: mild pain)
gabapentin 250 mg/5 mL (5 mL) Solution
1,500 mg feeding tube HS
dicyclomine 10 mg/5 mL solution
10 mg feeding tube Q6H
Movantik 12.5 mg Tablet
6.25 mg PO DAILY
Ursodiol 50mg/Ml
6 ml feeding tube BID
tizanidine 2 mg Tablet
6 mg feeding tube Q8H PRN (Reason: muscle spasms)
metoclopramide HCl 5 mg/5 mL solution
5 mg feeding tube TIDPRN PRN (Reason: spasms)
hydromorphone 1 mg/mL liquid
8 mg feeding tube Q4H
alprazolam 1 mg Tablet,Disintegrating
1 mg feeding tube TID
ustekinumab [Stelara] 90 mg/mL Syringe
90 mg SC MONTHLY
aprepitant 40 mg Capsule
40 mg feeding tube DAILY
calcium carbonate 500 mg/5 mL (1,250 mg/5 mL) Suspension
500 mg PO BID
Prednisone Intensol 5 mg/mL concentrate
10 mg feeding tube DAILY Qty: 60 0RF
Rx Instructions:
Start with 40mg daily and decrease dose by 10mg on every 4th day.
polyethylene glycol 3350 17 gram Powder In Packet
17 g feeding tube DAILY Qty: 0 0RF
guaifenesin 100 mg/5 mL Liquid
200 mg PO QID 14 Days Qty: 560 0RF
tobramycin in 0.225 % NaCl 300 mg/5 mL solution for nebulization
5 ml INHALATION BID Qty: 0 0RF
Rx Instructions:
for 2 weeks on and then 2 weeks off
Continue with guidance of primary insurance writer
budesonide [Pulmicort] 0.5 mg/2 mL suspension for nebulization
0.5 mg inhalation BID Qty: 60 0RF
Rx Instructions:
Dx Code: J45.909
ipratropium-albuterol 0.5 mg-3 mg(2.5 mg base)/3 mL solution for nebulization
3 ml inhalation TID Qty: 90 0RF
Rx Instructions:
Dx Code: J45.909
Referrals:
Rudy Snyder MD [Family Provider, Family Practice]
Interventions
Interventions:
*Risk Screen - Suicide Last Done: 09/10/24 18:49
*General Assessment Last Done: 09/10/24 18:49
*ED COVID-19 Vaccine History Last Done: 09/10/24 18:49
ED- Cardiac Assessment Last Done: 09/10/24 21:02
ED- Pulmonary Assessment Last Done: 09/10/24 21:02
ED-Skin Assessment Last Done: 09/10/24 21:04
Discharge Date and Time
Print Language: PORTUGUESE
== END 2024-09-10 23:52 | disposition home or self-care (01) ==
LOC: EMR 18:42
PROVIDERS: Physician Assistant; Physician Assistant Medical; EMERGENCY PHYSICIAN Student in an Organized Health Care Education/Training Program; FAMILY PHYSICIAN Family Medicine
DX: R60.0 Localized edema (principal); J45.909 Unspecified asthma, uncomplicated; K50.90 Crohn's disease, unspecified, without complications; Z79.52 Long term (current) use of systemic steroids; Z90.49 Acquired absence of other specified parts of digestive tract; Q39.0 Atresia of esophagus without fistula; J86.0 Pyothorax with fistula
CPT/HCPCS: 99284; 94640; 71046; 80053; 83880; 85025; 87811; 93970

== ENCOUNTER 2024-09-16 19:40 | Emergency (ER) | payer MEDICARE, OTHER, SELFPAY ==
[2024-09-16 19:50] VITALS: BP 134/96
[2024-09-16 20:04] VITALS: BP 126/96
[2024-09-16 21:00] VITALS: BP 120/90
[2024-09-16] MEDS: DUONEB 3 ML INH (21:42)
--- NOTE | 2024-09-16 21:53 | ED.GENMED ---
History of Present Illness
General
Chief Complaint: Breathing Problem
Source: patient and family
Exam Limitations: none
Time Seen by Provider: 09/16/24 20:58
Nursing documentation reviewed up to this point in time: agreed with
History of Present Illness
History of Present Illness:
28-year-old male presents Emergency Department due to 2 to 3 weeks of shortness of breath cough, numbness and tingling throughout his body. He reports sweats, chills, congestion and weakness this week. Reports having episodes lasting about a
minute where he cannot move. He has fallen during these episodes.
Past History
Past History
ED Past Medical History: Asthma (esophageal atresia), Other (Esophageal atresia, tracheoesophageal fistula, tracheal cleft, GJ tube, aspiration pneumonia) and Other (Crohn's disease, colitis.)
ED Past Surgical History: Cholecystectomy and Other (JG tube, tracheoesophageal fistula repair, laryngeal cleft repair, prior tracheostomy.)
Patient has exhibited threatening behavior?: No
PSI?: No
Social History
Tobacco: Non-smoker
Alcohol: None
Drug: None
Personal: Single
Living: with family
Employment: Not employed
Family History
Family History: Other (Noncontributory)
Review of Systems
Review of Systems
Allergies reviewed?: Yes
All Other Systems: Not applicable
Constitutional: Reports no symptoms
EENT: Reports no symptoms
Respiratory: Reports cough and trouble breathing
Cardiac: Reports no symptoms
ABD/GI: Reports no symptoms
: Reports no symptoms
Musculoskeletal: Reports no symptoms
Skin: Reports no symptoms
Neurological: Reports weakness
Endocrine: Reports no symptoms
Hematologic/Lymphatic: Reports no symptoms
Psychiatric: Reports no symptoms
Phy Exam
Physical Exam
Physical Exam:
Physical Exam
General: Chronic ill appearance, afebrile
Neck: supple. no meningeal signs. normal posterior pharynx, esophageal fistula, aspiration bag tachycardia
Heart: s1/s2, rhonchi tachycardia, no murmur. equal radial
pulses.
HEENT: Pupils equal round reactive to light, EOMI
Lungs: no acute respiratory distress. Rhonchi bilaterally
Abdomen: normal bowel sounds. not tender. no CVAT, GJ tube
Neuro: alert and oriented. no focal neurological deficits cranial nerves II through XII intact
Skin: no rash
Psychiatric: well kept. interactive and cooperative
Extremities: no edema. no calf tenderness. negative homans. good distal pulses
Course
Orders/Labs/Results
Orders:
Orders
09/16/24 21:27
CT Head W/o Iv Contrast Urgent
Comment:
Reason For Exam: fall, seizures
IV Insert/Care/Rem.- Treatment PRN
Ipratropium/Albuterol Sulfate [Duoneb] 3 ml INH R NOW STA
CR Chest Portable - 1 View Urgent
Comment:
Reason For Exam: short of breath
Reason Study Needs to be Portable: Unable to Transport
09/16/24 22:36
Complete Blood Count/With Diff Urgent
Comprehensive Metabolic Panel Urgent
09/16/24 22:46
Budesonide [Pulmicort] 0.25 mg INH R ONCE STA
Sodium Chloride 3% INH [Sodium Chloride 3% For Inhalation] 1 vial INH R NOW STA
Abnormal Lab Results
09/16/24
22:36
RBC 4.52 L 10^6/uL
(4.70-6.10)
MPV 12.5 H fL
(7.4-10.4)
Absolute Monos (auto) 0.7 H 10^3/uL
(0.1-0.6)
Lymphocytes % 17.0 L %
(20.5-51.1)
Monocytes % 10.1 H %
(1.7-9.3)
Creatinine 0.5 L mg/dL
(0.7-1.3)
ALT 67 H U/L
(0-50)
Alkaline Phosphatase 265 H U/L
(38-126)
09/16/24 22:36
09/16/24 22:36
Vital Signs
Initial and Last Documented VS:
Initial Vital Signs
Temp Pulse Resp BP Pulse Ox
98.4 F 115 20 134/96 97
09/16/24 19:50 09/16/24 19:50 09/16/24 19:50 09/16/24 19:50 09/16/24 19:50
Last Documented Vital Signs
Temp Pulse Resp BP Pulse Ox
98.4 F 113 26 109/71 100
09/16/24 19:50 09/16/24 22:00 09/16/24 22:00 09/16/24 22:00 09/16/24 22:00
MDM/Problems Addressed
Differential Diagnosis Includes:
Pneumonia, seizures, bronchitis
MDM/Problems Addressed:
28-year-old male with mild asthma exacerbation, improved with DuoNeb. No signs of pneumonia. No signs of intracranial hemorrhage. Patient stable for discharge. He will follow-up with neurology and primary care.
Chronic conditions affecting care: Asthma and Other (Neuropathy)
Acute Exacerbation and/or Progression of Chronic Illness: Asthma
*Radiology
Radiology exam reviewed: radiology read reviewed (Chest x-ray no acute findings, CT head no acute findings)
*Pulse Oximetry
SaO2: 94
Oxygen Mode of Delivery: Room air
Patient hypoxic: no
*Head Of Digital Interpretation
Rate: Head Of Digital- N/A
*Critical Care Note
Total Time (30-74mins, 75-104mins- exclusive of procedures): Not Applicable
Patient Management
Social determinants of health affecting care: Living situation and Strong social support
Escalation/DeEscalation of care consider admission/obs:
Admit not indicated
ED Attending Note
-
Portions of this chart may have been created with voice recognition software.� Occasional wrong word or��sound alike� substitutions may have occurred due to the inherent limitations of voice recognition software.
Discharge Plan
Departure
Patient Disposition: Home (Routine Discharge)
Date of Disposition: 09/16/24
Time of Disposition: 23:38
Patient with high blood pressure during this ER visit?: No
Condition: Good
Discharge Problem:
Acute bronchitis
Instructions: Syncope (fainting), Seizures in adults - ED discharge instructions
Prescriptions:
No Action
cetirizine [Children's Cetirizine] 5 MG/5 ML solution
10 mg feeding tube HS
sennosides [senna] 8.8 mg/5 mL Syrup
8.8 mg feeding tube BIDPRN PRN (Reason: constipation) Qty: 0
famotidine 40 mg/5 mL (8 mg/mL) Suspension For Reconstitution
20 mg feeding tube BID@0800,2000 Qty: 0
lansoprazole [Prevacid SoluTab] 30 MG tablet,disintegrat, delay rel
30 mg feeding tube BID
Rx Instructions:
brand name only
cholecalciferol (vitamin D3) [D-Vi-Samanta] 10 mcg/mL (400 unit/mL) Drops
10 mcg feeding tube DAILY Qty: 0
gabapentin 250 MG/5 ML solution
1,200 mg feeding tube DAILY
prucalopride [Motegrity] 2 MG tablet
2 mg feeding tube DAILY@1200
cyclobenzaprine 10 mg tablet
15 mg feeding tube TID
gabapentin 250 mg/5 mL Solution
900 mg feeding tube DAILY@1400
melatonin 3 mg Tablet
6 mg feeding tube HSPRN PRN (Reason: sleep)
ondansetron HCl 4 mg/5 mL solution
4 mg feeding tube Q6H
cyproheptadine 2 mg/5 mL syrup
4 mg feeding tube QID@08,12,16,20
scopolamine base 1 mg over 3 days Patch 3 Day
1 patch TRANSDERMAL Q3D
sodium chloride 7 % Solution For Nebulization
1 inh INHALATION R TID
acetaminophen 160 mg/5 mL (5 mL) Solution
1,000 mg feeding tube BIDPRN PRN (Reason: mild pain)
gabapentin 250 mg/5 mL (5 mL) Solution
1,500 mg feeding tube HS
dicyclomine 10 mg/5 mL solution
10 mg feeding tube Q6H
Movantik 12.5 mg Tablet
6.25 mg PO DAILY
Ursodiol 50mg/Ml
6 ml feeding tube BID
tizanidine 2 mg Tablet
6 mg feeding tube Q8H PRN (Reason: muscle spasms)
metoclopramide HCl 5 mg/5 mL solution
5 mg feeding tube TIDPRN PRN (Reason: spasms)
hydromorphone 1 mg/mL liquid
8 mg feeding tube Q4H
alprazolam 1 mg Tablet,Disintegrating
1 mg feeding tube TID
ustekinumab [Stelara] 90 mg/mL Syringe
90 mg SC MONTHLY
aprepitant 40 mg Capsule
40 mg feeding tube DAILY
calcium carbonate 500 mg/5 mL (1,250 mg/5 mL) Suspension
500 mg PO BID
Prednisone Intensol 5 mg/mL concentrate
10 mg feeding tube DAILY Qty: 60 0RF
Rx Instructions:
Start with 40mg daily and decrease dose by 10mg on every 4th day.
polyethylene glycol 3350 17 gram Powder In Packet
17 g feeding tube DAILY Qty: 0 0RF
guaifenesin 100 mg/5 mL Liquid
200 mg PO QID 14 Days Qty: 560 0RF
tobramycin in 0.225 % NaCl 300 mg/5 mL solution for nebulization
5 ml INHALATION BID Qty: 0 0RF
Rx Instructions:
for 2 weeks on and then 2 weeks off
Continue with guidance of primary energy sales broker
budesonide [Pulmicort] 0.5 mg/2 mL suspension for nebulization
0.5 mg inhalation BID Qty: 60 0RF
Rx Instructions:
Dx Code: J45.909
ipratropium-albuterol 0.5 mg-3 mg(2.5 mg base)/3 mL solution for nebulization
3 ml inhalation TID Qty: 90 0RF
Rx Instructions:
Dx Code: J45.909
Referrals:
Aisha Higgins MD [Non-Admitting Privileges, Psychiatry]
Rudy Snyder MD [Family Provider, Family Practice] - Call in 1-3 days for appt
Interventions
Interventions:
*Risk Screen - Suicide Last Done: 09/16/24 19:50
*General Assessment Last Done: 09/16/24 19:50
*Neglect/Abuse Screening Last Done: 09/16/24 19:50
*ED- Fall Risk Assessment Last Done: 09/16/24 19:50
*ED COVID-19 Vaccine History Last Done: 09/16/24 19:50
ED- Cardiac Assessment Last Done: 09/16/24 22:31
ED- Pulmonary Assessment Last Done: 09/16/24 22:31
Discharge Date and Time
Print Language: YORUBA
[2024-09-16 22:00] VITALS: BP 109/71
[2024-09-16 22:38] VITALS: BMI 25.8
[2024-09-16 22:44] LABS: Hematocrit 40.2 % (39.0-52.0); Hemoglobin 13.4 g/dL (13.0-18.0); Mean Corp Hgb Conc. 33.3 g/dL (33.0-37.0); Mean Corpuscular Volume 88.9 fL (80.0-94.0); Nucleated Red Blood Cells % 0 % (-); Platelet Count 153 10^3/uL (130-400); Red Cell Dist. Width 13.9 % (11.5-14.5)
[2024-09-16 22:59] LABS: ALT (SGPT) 67 U/L (0-50); AST (SGOT) 57 U/L (17-59); Albumin 4.5 g/dl (3.5-5.0); Alkaline Phosphatase 265 U/L (38-126); Blood Urea Nitrogen 10 mg/dl (9-20); Calcium 9.5 mg/dl (8.4-10.2); Carbon Dioxide 28 mmol/L (22-30); Chloride 104 mmol/L (98-107); Estimated Creatinine Clearance > 125 ml/min; Glucose 88 mg/dl (70-99); Potassium 4.5 mmol/L (3.5-5.1); Sodium 137 mmol/L (135-145); Total Protein 7.8 g/dl (6.3-8.2); eGFR > 60.00
[2024-09-16 23:10] VITALS: BP 118/74
[2024-09-17] VITALS: BP 104/85
[2024-09-17] MEDS: PULMICORT 0.25 MG INH (00:03)
[2024-09-17] MEDS: SODIUM CHLORIDE 3% FOR INHALATION 1 VIAL INH (00:03)
== END 2024-09-17 00:30 | disposition home or self-care (01) ==
LOC: EMR 19:40
PROVIDERS: EMERGENCY PHYSICIAN Emergency Medicine; FAMILY PHYSICIAN Family Medicine
DX: J20.9 Acute bronchitis, unspecified (principal); G62.9 Polyneuropathy, unspecified; J45.901 Unspecified asthma with (acute) exacerbation; K50.90 Crohn's disease, unspecified, without complications; Z90.49 Acquired absence of other specified parts of digestive tract
CPT/HCPCS: 99284; 70450; 71045; 80053; 85025

== ENCOUNTER → 2024-12-11 12:43 | Outpatient (REF) | payer MEDICARE, OTHER, SELFPAY | LOC: WOUND 12:43 | PROVIDERS: ATTENDING PHYSICIAN Surgery | DX: L89.310 Pressure ulcer of right buttock, unstageable (principal); K50.111 Crohn's disease of large intestine with rectal bleeding; J38.7 Other diseases of larynx | CPT/HCPCS: 99203 ==